=== PATIENT | female | born 1985 | race Caucasian/White ===

== ENCOUNTER 2019-05-13 20:30 | Inpatient (IN) | payer MEDICARE, MEDICAID, SELFPAY ==
[2019-05-13 20:36] VITALS: BP 117/84; PULSE 148; RESP 16; TEMP 36.6; O2SAT 94
--- NOTE | 2019-05-13 20:37 | ED_ITS ---
Entered by Debra Rivera, acting as scribe for Documented by User: Selene Valentine 05/14/19 11:18 HPI - General Adult General: Chief complaint: General Medical Stated complaint: Lethargic Time Seen by Provider: 05/13/19 20:37 Source: family and RN notes reviewed Mode of arrival: wheelchair Limitations: physical limitation (cerebral palsy) History of Present Illness: HPI narrative: 33 yo female presents to ED with her family nurse. 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 The patient has a productive cough, is not eating and has had decreasing fluid intake. The family nurse states the patient has been sick for 1 week. complaint: cough, lethargy Onset (ago): week(s) (1) Location: head and chest Radiation: non-radiation Severity: severe Quality: aching and constant Pain Consistency: constant Relieving factors: none Exacerbating factors: none Associated symptoms: Reports cough, decreased appetite and malaise Treatments prior to arrival: none Review of Systems General: Reports: other (Review of systems are unobtainable secondary to patient's medical condition/cerebral palsy. All information is taken from caretakers.) Const: Reports: malaise [facility] ED PFSH: Medical History (Updated 05/14/19 @ 11:18 by Selene Valentine) Cerebral palsy DVT (deep venous thrombosis) Quadriplegia Spastic quadriplegia Social History (Updated 05/14/19 @ 00:28 by Concepción Bowman MD) Smoking and tobacco status: never smoked Alcohol intake: never Substance/Drug Use: never Lives independently: No Household members: family and caregiver Housing: House Physical Exam Const: COMMON NORMALS: no apparent distress, healthy appearing and well nourished GENERAL APPEARANCE: cooperative, well kempt and well developed ORIENTATION/CONSCIOUSNESS: Yes awake HENMT: COMMON NORMALS: normocephalic, head/scalp atraumatic, hearing grossly normal bilaterally, external ears normal, EAC's normal, external nose normal and moist oral mucous membranes HEAD & SCALP: normal to inspection, normocephalic and atraumatic FACE & SINUS: normal facial exam and face symmetric NOSE: external nose normal and nares normal EXTERNAL EAR: Yes external ears normal EXTERNAL AUDITORY CANAL: EAC's normal MOUTH: oral and palatal mucosa normal and tongue normal Eye: COMMON NORMALS: PERRL, EOMs intact bilaterally, conjunctivae normal and no scleral icterus GENERAL EYE: normal appearance of both eyes and normal light reflex CONJUNCTIVA: Yes conjunctivae normal SCLERA: sclerae normal CORNEA: Yes corneas normal PUPIL: Yes PERRL DIRECT OPHTHALMOSCOPY: Yes normal light reflex Neck/C-Spine: COMMON NORMALS: full ROM, no lymphadenopathy, supple, no meningeal signs and no JVD GENERAL: Yes normal visual inspection and Yes trachea midline CERVICAL SPINE: Yes cervical ROM normal Chest: COMMONS NORMALS: inspection of chest normal and palpation of chest normal Resp: COMMON NORMALS: normal respiratory effort, no retractions, no use of accessory muscles and clear to auscultation bilaterally EFFORT & INSPECTION: Yes able to speak in complete sentences AUSCULTATION: clear to auscultation bilaterally Cardio: COMMON NORMALS: no JVD, regular rhythm, S1 normal heart sound, S2 normal heart sound, no gallops, no clicks, no murmurs and no rub JUGULAR VENOUS DISTENTION: no JVD RATE: tachycardic RHYTHM: regular rhythm HEART SOUNDS: S1 normal and S2 normal GI: COMMON NORMALS: soft to palpation, non-tender, no hepatosplenomegaly and no masses INSPECTION: Yes normal to inspection PALPATION: Yes soft, Yes tender, No guarding, No rigid and Yes no hepatosplenomegaly : COMMON NORMALS: Yes no CVA tenderness BLADDER/KIDNEY EXAM: Yes no CVA tenderness Back/Pelvis: COMMON NORMALS: no CVA tenderness, thoracic and lumbar spine normal to inspection, no thoracic nor lumbar tenderness and thoraco-lumbar ROM normal Extremity: COMMON NORMALS: normal to inspection, normal capillary refill, no joint enlargement, no clubbing, cyanosis or edema and no calf tenderness Neuro: COMMON NORMALS: CN's II-XII intact bilaterally, no focal motor deficits and no sensory deficits noted MENINGEAL SIGNS: Yes no meningeal signs Psych: COMMON NORMALS: mental status grossly normal, thought process normal, cooperative, affect normal, speech normal and activity/motor behavior normal APPEARANCE: Yes well kempt SPEECH: Yes normal speech THOUGHT PROCESS: normal thought process Skin: COMMON NORMALS: no rashes or lesions noted, skin turgor normal, no jaundice, no petechiae and no mottling GENERAL SKIN EXAM: no rashes or lesions noted and turgor normal Course Vital Signs: Vital signs: Vital Signs Temperature 99.2 F 03/08/20 10:43 Pulse Rate 129 H 05/14/19 10:43 Respiratory Rate 18 05/14/19 10:43 Blood Pressure 97/64 05/14/19 10:43 Pulse Oximetry 92 05/14/19 10:43 MDM - General Adult MDM Narrative: Medical decision making narrative: Deborah is a 33-year-old female who comes in with sepsis/flulike symptoms. Her work-up to this point has been unremarkable. The case is been endorsed to Dr. Bowman, he agrees to admit. He will follow-up on the patient CT abdomen pelvis. Lab Data: Attestation: I reviewed the patient's lab results. Labs: Lab Results 05/13/19 05/13/19 05/13/19 Range/Units 20:57 20:57 20:57 WBC 14.5 H (4.0-10.0) 10^3/ uL RBC 5.02 (4.1-5.3) 10^6/u L Hgb 12.9 (11.5-15.3) g/dL Hct 43.0 (37.0-47.0) % MCV 85.7 (81-99) fL MCH 25.7 L (28.0-34.0) pg MCHC 30.0 (30.0-36.0) g/dL RDW 14.8 (12.1-15.1) % Plt Count 287 (130-400) 10^3/c mm MPV 11.8 H (7.4-10.4) fL Neut % (Auto) 82.6 % Lymph % (Auto) 10.4 % [place] % (Auto) 6.4 % Eos % (Auto) 0.0 % Baso % (Auto) 0.2 % Neut # (Auto) 11.9 H (1.8-7.7) 10^3/u L Lymph # (Auto) 1.5 (0.8-4.8) 10^3/u L [place] # (Auto) 0.9 (0.2-0.9) 10^3/u L Eos # (Auto) 0.0 (0.0-0.8) 10^3/u L Baso # (Auto) 0.0 (0.0-0.1) 10^3/u L Nucleated RBC % (a uto) 0 % Nucleated RBCs # 0.0 /100WBC Sodium 149 H (136-145) mmol/L Potassium 2.8 L* (3.5-5.1) mmol/L Chloride 104 (98-107) mmol/L Carbon Dioxide 30 H (22-29) mmol/L Anion Gap 17.8 (5-19) BUN 22 H (6-20) mg/dL Creatinine 0.8 (0.5-0.9) mg/dL GFR Calculation 82.1 L (90-130) mL/min Glucose 251 H (65-115) mg/dL Lactic Acid 3.0 H (0.5-2.2) mmol/L Lactic Acid (Sepsi s) (0.5-2.2) mmol/L Calcium 9.8 (8.5-10.5) mg/dL Magnesium (1.7-2.3) mg/dL Total Bilirubin 0.5 (0.15-1.2) mg/dL AST 34 H (0-32) U/L ALT 37 H (0-33) U/L Alkaline Phosphata se 117 H (35-105) IU/L Troponin T Baselin e (0-10) ng/mL Troponin T 120 Min andreafski (0-10) ng/mL Delta Troponin T (0-10) ABS# Total Protein 8.5 (6.6-8.7) g/dL Albumin 4.1 (3.5-5.2) g/dL Globulin 4.4 (1.3-4.6) g/dL Lipase 15 (13-60) U/L Urine Color (Yellow) Urine Appearance (CLEAR) Urine pH (5-7) Ur Specific Gravit y (1.005-1.030) Urine Protein (Negative) Urine Glucose (UA) (Normal) Urine Ketones (Negative) Urine Blood (Negative) Urine Nitrate (Negative) Urine Bilirubin (NEGATIVE) Urine Urobilinogen (Negative) mg/dL Ur Leukocyte Angélica ase (Negative) Urine RBC (0-2) /hpf Urine WBC (0-5) /hpf Ur Squamous Epith Cells (0-5) Urine Bacteria (NONE) Urine Mucus Serum Ketones (Negative) Influenza Type A A g (Negative) POC Influenza B Ag (Negative) 05/13/19 05/13/19 05/13/19 Range/Units 20:57 20:57 20:57 WBC (4.0-10.0) 10^3/ uL RBC (4.1-5.3) 10^6/u L Hgb (11.5-15.3) g/dL Hct (37.0-47.0) % MCV (81-99) fL MCH (28.0-34.0) pg MCHC (30.0-36.0) g/dL RDW (12.1-15.1) % Plt Count (130-400) 10^3/c mm MPV (7.4-10.4) fL Neut % (Auto) % Lymph % (Auto) % [place] % (Auto) % Eos % (Auto) % Baso % (Auto) % Neut # (Auto) (1.8-7.7) 10^3/u L Lymph # (Auto) (0.8-4.8) 10^3/u L [place] # (Auto) (0.2-0.9) 10^3/u L Eos # (Auto) (0.0-0.8) 10^3/u L Baso # (Auto) (0.0-0.1) 10^3/u L Nucleated RBC % (a uto) % Nucleated RBCs # /100WBC Sodium (136-145) mmol/L Potassium (3.5-5.1) mmol/L Chloride (98-107) mmol/L Carbon Dioxide (22-29) mmol/L Anion Gap (5-19) BUN (6-20) mg/dL Creatinine (0.5-0.9) mg/dL GFR Calculation (90-130) mL/min Glucose (65-115) mg/dL Lactic Acid (0.5-2.2) mmol/L Lactic Acid (Sepsi s) (0.5-2.2) mmol/L Calcium (8.5-10.5) mg/dL Magnesium 2.8 H (1.7-2.3) mg/dL Total Bilirubin (0.15-1.2) mg/dL AST (0-32) U/L ALT (0-33) U/L Alkaline Phosphata se (35-105) IU/L Troponin T Baselin e 29 H (0-10) ng/mL Troponin T 120 Min andreafski (0-10) ng/mL Delta Troponin T (0-10) ABS# Total Protein (6.6-8.7) g/dL Albumin (3.5-5.2) g/dL Globulin (1.3-4.6) g/dL Lipase (13-60) U/L Urine Color (Yellow) Urine Appearance (CLEAR) Urine pH (5-7) Ur Specific Gravit y (1.005-1.030) Urine Protein (Negative) Urine Glucose (UA) (Normal) Urine Ketones (Negative) Urine Blood (Negative) Urine Nitrate (Negative) Urine Bilirubin (NEGATIVE) Urine Urobilinogen (Negative) mg/dL Ur Leukocyte Angélica ase (Negative) Urine RBC (0-2) /hpf Urine WBC (0-5) /hpf Ur Squamous Epith Cells (0-5) Urine Bacteria (NONE) Urine Mucus Serum Ketones Negative (Negative) Influenza Type A A g (Negative) POC Influenza B Ag (Negative) 05/13/19 05/13/19 05/13/19 Range/Units 21:10 21:10 22:45 WBC (4.0-10.0) 10^3/ uL RBC (4.1-5.3) 10^6/u L Hgb (11.5-15.3) g/dL Hct (37.0-47.0) % MCV (81-99) fL MCH (28.0-34.0) pg MCHC (30.0-36.0) g/dL RDW (12.1-15.1) % Plt Count (130-400) 10^3/c mm MPV (7.4-10.4) fL Neut % (Auto) % Lymph % (Auto) % [place] % (Auto) % Eos % (Auto) % Baso % (Auto) % Neut # (Auto) (1.8-7.7) 10^3/u L Lymph # (Auto) (0.8-4.8) 10^3/u L [place] # (Auto) (0.2-0.9) 10^3/u L Eos # (Auto) (0.0-0.8) 10^3/u L Baso # (Auto) (0.0-0.1) 10^3/u L Nucleated RBC % (a uto) % Nucleated RBCs # /100WBC Sodium (136-145) mmol/L Potassium (3.5-5.1) mmol/L Chloride (98-107) mmol/L Carbon Dioxide (22-29) mmol/L Anion Gap (5-19) BUN (6-20) mg/dL Creatinine (0.5-0.9) mg/dL GFR Calculation (90-130) mL/min Glucose (65-115) mg/dL Lactic Acid (0.5-2.2) mmol/L Lactic Acid (Sepsi s) (0.5-2.2) mmol/L Calcium (8.5-10.5) mg/dL Magnesium (1.7-2.3) mg/dL Total Bilirubin (0.15-1.2) mg/dL AST (0-32) U/L ALT (0-33) U/L Alkaline Phosphata se (35-105) IU/L Troponin T Baselin e (0-10) ng/mL Troponin T 120 Min andreafski 17.17 H (0-10) ng/mL Delta Troponin T -11.83 L (0-10) ABS# Total Protein (6.6-8.7) g/dL Albumin (3.5-5.2) g/dL Globulin (1.3-4.6) g/dL Lipase (13-60) U/L Urine Color Yellow (Yellow) Urine Appearance Cloudy (CLEAR) Urine pH 5 (5-7) Ur Specific Gravit y 1.020 (1.005-1.030) Urine Protein 2+ H (Negative) Urine Glucose (UA) Norm (Normal) Urine Ketones 1+ H (Negative) Urine Blood 3+ H (Negative) Urine Nitrate Negative (Negative) Urine Bilirubin 2+ H (NEGATIVE) Urine Urobilinogen Norm (Negative) mg/dL Ur Leukocyte Angélica ase Negative (Negative) Urine RBC 0-4 H (0-2) /hpf Urine WBC 0-4 H (0-5) /hpf Ur Squamous Epith Cells 0-4 H (0-5) Urine Bacteria 1+ H (NONE) Urine Mucus 2+ Serum Ketones (Negative) Influenza Type A A g Negative (Negative) POC Influenza B Ag Negative (Negative) 05/13/19 Range/Units 22:45 WBC (4.0-10.0) 10^3/ uL RBC (4.1-5.3) 10^6/u L Hgb (11.5-15.3) g/dL Hct (37.0-47.0) % MCV (81-99) fL MCH (28.0-34.0) pg MCHC (30.0-36.0) g/dL RDW (12.1-15.1) % Plt Count (130-400) 10^3/c mm MPV (7.4-10.4) fL Neut % (Auto) % Lymph % (Auto) % [place] % (Auto) % Eos % (Auto) % Baso % (Auto) % Neut # (Auto) (1.8-7.7) 10^3/u L Lymph # (Auto) (0.8-4.8) 10^3/u L [place] # (Auto) (0.2-0.9) 10^3/u L Eos # (Auto) (0.0-0.8) 10^3/u L Baso # (Auto) (0.0-0.1) 10^3/u L Nucleated RBC % (a uto) % Nucleated RBCs # /100WBC Sodium (136-145) mmol/L Potassium (3.5-5.1) mmol/L Chloride (98-107) mmol/L Carbon Dioxide (22-29) mmol/L Anion Gap (5-19) BUN (6-20) mg/dL Creatinine (0.5-0.9) mg/dL GFR Calculation (90-130) mL/min Glucose (65-115) mg/dL Lactic Acid (0.5-2.2) mmol/L Lactic Acid (Sepsi s) 2.4 H (0.5-2.2) mmol/L Calcium (8.5-10.5) mg/dL Magnesium (1.7-2.3) mg/dL Total Bilirubin (0.15-1.2) mg/dL AST (0-32) U/L ALT (0-33) U/L Alkaline Phosphata se (35-105) IU/L Troponin T Baselin e (0-10) ng/mL Troponin T 120 Min andreafski (0-10) ng/mL Delta Troponin T (0-10) ABS# Total Protein (6.6-8.7) g/dL Albumin (3.5-5.2) g/dL Globulin (1.3-4.6) g/dL Lipase (13-60) U/L Urine Color (Yellow) Urine Appearance (CLEAR) Urine pH (5-7) Ur Specific Gravit y (1.005-1.030) Urine Protein (Negative) Urine Glucose (UA) (Normal) Urine Ketones (Negative) Urine Blood (Negative) Urine Nitrate (Negative) Urine Bilirubin (NEGATIVE) Urine Urobilinogen (Negative) mg/dL Ur Leukocyte Angélica ase (Negative) Urine RBC (0-2) /hpf Urine WBC (0-5) /hpf Ur Squamous Epith Cells (0-5) Urine Bacteria (NONE) Urine Mucus Serum Ketones (Negative) Influenza Type A A g (Negative) POC Influenza B Ag (Negative) Imaging Data^: CXR: My impression: No acute cardiopulmonary findings. EKG Data^: EKG 1: Computer generated interpretation: Chest X-Ray 05/13/19 20:42 IMPRESSION: Negative chest for active pathology. Abdomen/Pelvis CT 05/13/19 22:48 IMPRESSION: 1. Multiple small gas-filled gallstones without evidence of cholecystitis 2. Irregular hypoattenuation mass in the right hepatic lobe exhibiting nodular peripheral enhancement compatible with a benign hemangioma measuring 2 cm. No further workup needed. 3. Numerous punctate densities seen in the left lower lobe posteriorly likely represents inspissated bronchi. Radiation Dose CTDIVOL = (mGy): DLP = 517.42 (mGy-cm) EKG 2: Computer generated interpretation: Chest X-Ray 05/13/19 20:42 IMPRESSION: Negative chest for active pathology. Abdomen/Pelvis CT 05/13/19 22:48 IMPRESSION: 1. Multiple small gas-filled gallstones without evidence of cholecystitis 2. Irregular hypoattenuation mass in the right hepatic lobe exhibiting nodular peripheral enhancement compatible with a benign hemangioma measuring 2 cm. No further workup needed. 3. Numerous punctate densities seen in the left lower lobe posteriorly likely represents inspissated bronchi. Radiation Dose CTDIVOL = (mGy): DLP = 517.42 (mGy-cm) Discharge Plan Discharge Patient Disposition: Admitted As Inpatient Admit Provider: Concepción Bowman Clinical Impression: Sepsis, Dehydration Condition: Stable Interventions: ED Discharge Assessment Last Done: 05/14/19 00:09 Discharge Date/Time: 05/14/19 00:10 Coding Level of Care Code ED Top Collar Maker for Chg Fwd Exam Comprehensive Documented by User: Sergio Johnson DO 05/14/19 00:12 HPI - General Adult General: Chief complaint: General Medical Stated complaint: Lethargic Time Seen by Provider: 05/13/19 20:37 PFSH ED PFSH: Medical History (Updated 05/14/19 @ 11:18 by Selene Valentine) Cerebral palsy DVT (deep venous thrombosis) Quadriplegia Spastic quadriplegia Social History (Updated 05/14/19 @ 00:28 by Concepción Bowman MD) Smoking and tobacco status: never smoked Alcohol intake: never Substance/Drug Use: never Lives independently: No Household members: family and caregiver Housing: House Course Vital Signs: Vital signs: Vital Signs Temperature 99.2 F 05/14/19 10:43 Pulse Rate 129 H 05/14/19 10:43 Respiratory Rate 18 05/14/19 10:43 Blood Pressure 97/64 05/14/19 10:43 Pulse Oximetry 92 05/14/19 10:43 MDM - General Adult Lab Data: Labs: Lab Results 05/13/19 05/13/19 05/13/19 Range/Units 20:57 20:57 20:57 WBC 14.5 H (4.0-10.0) 10^3/ uL RBC 5.02 (4.1-5.3) 10^6/u L Hgb 12.9 (11.5-15.3) g/dL Hct 43.0 (37.0-47.0) % MCV 85.7 (81-99) fL MCH 25.7 L (28.0-34.0) pg MCHC 30.0 (30.0-36.0) g/dL RDW 14.8 (12.1-15.1) % Plt Count 287 (130-400) 10^3/c mm MPV 11.8 H (7.4-10.4) fL Neut % (Auto) 82.6 % Lymph % (Auto) 10.4 % [place] % (Auto) 6.4 % Eos % (Auto) 0.0 % Baso % (Auto) 0.2 % Neut # (Auto) 11.9 H (1.8-7.7) 10^3/u L Lymph # (Auto) 1.5 (0.8-4.8) 10^3/u L [place] # (Auto) 0.9 (0.2-0.9) 10^3/u L Eos # (Auto) 0.0 (0.0-0.8) 10^3/u L Baso # (Auto) 0.0 (0.0-0.1) 10^3/u L Nucleated RBC % (a uto) 0 % Nucleated RBCs # 0.0 /100WBC Sodium 149 H (136-145) mmol/L Potassium 2.8 L* (3.5-5.1) mmol/L Chloride 104 (98-107) mmol/L Carbon Dioxide 30 H (22-29) mmol/L Anion Gap 17.8 (5-19) BUN 22 H (6-20) mg/dL Creatinine 0.8 (0.5-0.9) mg/dL GFR Calculation 82.1 L (90-130) mL/min Glucose 251 H (65-115) mg/dL Lactic Acid 3.0 H (0.5-2.2) mmol/L Lactic Acid (Sepsi s) (0.5-2.2) mmol/L Calcium 9.8 (8.5-10.5) mg/dL Magnesium (1.7-2.3) mg/dL Total Bilirubin 0.5 (0.15-1.2) mg/dL AST 34 H (0-32) U/L ALT 37 H (0-33) U/L Alkaline Phosphata se 117 H (35-105) IU/L Troponin T Baselin e (0-10) ng/mL Troponin T 120 Min andreafski (0-10) ng/mL Delta Troponin T (0-10) ABS# Total Protein 8.5 (6.6-8.7) g/dL Albumin 4.1 (3.5-5.2) g/dL Globulin 4.4 (1.3-4.6) g/dL Lipase 15 (13-60) U/L Urine Color (Yellow) Urine Appearance (CLEAR) Urine pH (5-7) Ur Specific Gravit y (1.005-1.030) Urine Protein (Negative) Urine Glucose (UA) (Normal) Urine Ketones (Negative) Urine Blood (Negative) Urine Nitrate (Negative) Urine Bilirubin (NEGATIVE) Urine Urobilinogen (Negative) mg/dL Ur Leukocyte Angélica ase (Negative) Urine RBC (0-2) /hpf Urine WBC (0-5) /hpf Ur Squamous Epith Cells (0-5) Urine Bacteria (NONE) Urine Mucus Serum Ketones (Negative) Influenza Type A A g (Negative) POC Influenza B Ag (Negative) 05/13/19 05/13/19 05/13/19 Range/Units 20:57 20:57 20:57 WBC (4.0-10.0) 10^3/ uL RBC (4.1-5.3) 10^6/u L Hgb (11.5-15.3) g/dL Hct (37.0-47.0) % MCV (81-99) fL MCH (28.0-34.0) pg MCHC (30.0-36.0) g/dL RDW (12.1-15.1) % Plt Count (130-400) 10^3/c mm MPV (7.4-10.4) fL Neut % (Auto) % Lymph % (Auto) % [place] % (Auto) % Eos % (Auto) % Baso % (Auto) % Neut # (Auto) (1.8-7.7) 10^3/u L Lymph # (Auto) (0.8-4.8) 10^3/u L [place] # (Auto) (0.2-0.9) 10^3/u L Eos # (Auto) (0.0-0.8) 10^3/u L Baso # (Auto) (0.0-0.1) 10^3/u L Nucleated RBC % (a uto) % Nucleated RBCs # /100WBC Sodium (136-145) mmol/L Potassium (3.5-5.1) mmol/L Chloride (98-107) mmol/L Carbon Dioxide (22-29) mmol/L Anion Gap (5-19) BUN (6-20) mg/dL Creatinine (0.5-0.9) mg/dL GFR Calculation (90-130) mL/min Glucose (65-115) mg/dL Lactic Acid (0.5-2.2) mmol/L Lactic Acid (Sepsi s) (0.5-2.2) mmol/L Calcium (8.5-10.5) mg/dL Magnesium 2.8 H (1.7-2.3) mg/dL Total Bilirubin (0.15-1.2) mg/dL AST (0-32) U/L ALT (0-33) U/L Alkaline Phosphata se (35-105) IU/L Troponin T Baselin e 29 H (0-10) ng/mL Troponin T 120 Min andreafski (0-10) ng/mL Delta Troponin T (0-10) ABS# Total Protein (6.6-8.7) g/dL Albumin (3.5-5.2) g/dL Globulin (1.3-4.6) g/dL Lipase (13-60) U/L Urine Color (Yellow) Urine Appearance (CLEAR) Urine pH (5-7) Ur Specific Gravit y (1.005-1.030) Urine Protein (Negative) Urine Glucose (UA) (Normal) Urine Ketones (Negative) Urine Blood (Negative) Urine Nitrate (Negative) Urine Bilirubin (NEGATIVE) Urine Urobilinogen (Negative) mg/dL Ur Leukocyte Angélica ase (Negative) Urine RBC (0-2) /hpf Urine WBC (0-5) /hpf Ur Squamous Epith Cells (0-5) Urine Bacteria (NONE) Urine Mucus Serum Ketones Negative (Negative) Influenza Type A A g (Negative) POC Influenza B Ag (Negative) 05/13/19 05/13/19 05/13/19 Range/Units 21:10 21:10 22:45 WBC (4.0-10.0) 10^3/ uL RBC (4.1-5.3) 10^6/u L Hgb (11.5-15.3) g/dL Hct (37.0-47.0) % MCV (81-99) fL MCH (28.0-34.0) pg MCHC (30.0-36.0) g/dL RDW (12.1-15.1) % Plt Count (130-400) 10^3/c mm MPV (7.4-10.4) fL Neut % (Auto) % Lymph % (Auto) % [place] % (Auto) % Eos % (Auto) % Baso % (Auto) % Neut # (Auto) (1.8-7.7) 10^3/u L Lymph # (Auto) (0.8-4.8) 10^3/u L [place] # (Auto) (0.2-0.9) 10^3/u L Eos # (Auto) (0.0-0.8) 10^3/u L Baso # (Auto) (0.0-0.1) 10^3/u L Nucleated RBC % (a uto) % Nucleated RBCs # /100WBC Sodium (136-145) mmol/L Potassium (3.5-5.1) mmol/L Chloride (98-107) mmol/L Carbon Dioxide (22-29) mmol/L Anion Gap (5-19) BUN (6-20) mg/dL Creatinine (0.5-0.9) mg/dL GFR Calculation (90-130) mL/min Glucose (65-115) mg/dL Lactic Acid (0.5-2.2) mmol/L Lactic Acid (Sepsi s) (0.5-2.2) mmol/L Calcium (8.5-10.5) mg/dL Magnesium (1.7-2.3) mg/dL Total Bilirubin (0.15-1.2) mg/dL AST (0-32) U/L ALT (0-33) U/L Alkaline Phosphata se (35-105) IU/L Troponin T Baselin e (0-10) ng/mL Troponin T 120 Min andreafski 17.17 H (0-10) ng/mL Delta Troponin T -11.83 L (0-10) ABS# Total Protein (6.6-8.7) g/dL Albumin (3.5-5.2) g/dL Globulin (1.3-4.6) g/dL Lipase (13-60) U/L Urine Color Yellow (Yellow) Urine Appearance Cloudy (CLEAR) Urine pH 5 (5-7) Ur Specific Gravit y 1.020 (1.005-1.030) Urine Protein 2+ H (Negative) Urine Glucose (UA) Norm (Normal) Urine Ketones 1+ H (Negative) Urine Blood 3+ H (Negative) Urine Nitrate Negative (Negative) Urine Bilirubin 2+ H (NEGATIVE) Urine Urobilinogen Norm (Negative) mg/dL Ur Leukocyte Angélica ase Negative (Negative) Urine RBC 0-4 H (0-2) /hpf Urine WBC 0-4 H (0-5) /hpf Ur Squamous Epith Cells 0-4 H (0-5) Urine Bacteria 1+ H (NONE) Urine Mucus 2+ Serum Ketones (Negative) Influenza Type A A g Negative (Negative) POC Influenza B Ag Negative (Negative) 05/13/19 Range/Units 22:45 WBC (4.0-10.0) 10^3/ uL RBC (4.1-5.3) 10^6/u L Hgb (11.5-15.3) g/dL Hct (37.0-47.0) % MCV (81-99) fL MCH (28.0-34.0) pg MCHC (30.0-36.0) g/dL RDW (12.1-15.1) % Plt Count (130-400) 10^3/c mm MPV (7.4-10.4) fL Neut % (Auto) % Lymph % (Auto) % [place] % (Auto) % Eos % (Auto) % Baso % (Auto) % Neut # (Auto) (1.8-7.7) 10^3/u L Lymph # (Auto) (0.8-4.8) 10^3/u L [place] # (Auto) (0.2-0.9) 10^3/u L Eos # (Auto) (0.0-0.8) 10^3/u L Baso # (Auto) (0.0-0.1) 10^3/u L Nucleated RBC % (a uto) % Nucleated RBCs # /100WBC Sodium (136-145) mmol/L Potassium (3.5-5.1) mmol/L Chloride (98-107) mmol/L Carbon Dioxide (22-29) mmol/L Anion Gap (5-19) BUN (6-20) mg/dL Creatinine (0.5-0.9) mg/dL GFR Calculation (90-130) mL/min Glucose (65-115) mg/dL Lactic Acid (0.5-2.2) mmol/L Lactic Acid (Sepsi s) 2.4 H (0.5-2.2) mmol/L Calcium (8.5-10.5) mg/dL Magnesium (1.7-2.3) mg/dL Total Bilirubin (0.15-1.2) mg/dL AST (0-32) U/L ALT (0-33) U/L Alkaline Phosphata se (35-105) IU/L Troponin T Baselin e (0-10) ng/mL Troponin T 120 Min andreafski (0-10) ng/mL Delta Troponin T (0-10) ABS# Total Protein (6.6-8.7) g/dL Albumin (3.5-5.2) g/dL Globulin (1.3-4.6) g/dL Lipase (13-60) U/L Urine Color (Yellow) Urine Appearance (CLEAR) Urine pH (5-7) Ur Specific Gravit y (1.005-1.030) Urine Protein (Negative) Urine Glucose (UA) (Normal) Urine Ketones (Negative) Urine Blood (Negative) Urine Nitrate (Negative) Urine Bilirubin (NEGATIVE) Urine Urobilinogen (Negative) mg/dL Ur Leukocyte Angélica ase (Negative) Urine RBC (0-2) /hpf Urine WBC (0-5) /hpf Ur Squamous Epith Cells (0-5) Urine Bacteria (NONE) Urine Mucus Serum Ketones (Negative) Influenza Type A A g (Negative) POC Influenza B Ag (Negative) EKG Data^: EKG 1: Computer generated interpretation: Chest X-Ray 05/13/19 20:42 IMPRESSION: Negative chest for active pathology. Abdomen/Pelvis CT 05/13/19 22:48 IMPRESSION: 1. Multiple small gas-filled gallstones without evidence of cholecystitis 2. Irregular hypoattenuation mass in the right hepatic lobe exhibiting nodular peripheral enhancement compatible with a benign hemangioma measuring 2 cm. No further workup needed. 3. Numerous punctate densities seen in the left lower lobe posteriorly likely represents inspissated bronchi. Radiation Dose CTDIVOL = (mGy): DLP = 517.42 (mGy-cm) EKG 2: Computer generated interpretation: Chest X-Ray 05/13/19 20:42 IMPRESSION: Negative chest for active pathology. Abdomen/Pelvis CT 05/13/19 22:48 IMPRESSION: 1. Multiple small gas-filled gallstones without evidence of cholecystitis 2. Irregular hypoattenuation mass in the right hepatic lobe exhibiting nodular peripheral enhancement compatible with a benign hemangioma measuring 2 cm. No further workup needed. 3. Numerous punctate densities seen in the left lower lobe posteriorly likely represents inspissated bronchi. Radiation Dose CTDIVOL = (mGy): DLP = 517.42 (mGy-cm) Discharge Plan Discharge Patient Disposition: Admitted As Inpatient Admit Provider: Concepción Bowman Clinical Impression: Sepsis, Dehydration Condition: Stable Interventions: ED Discharge Assessment Last Done: 05/14/19 00:09 Discharge Date/Time: 05/14/19 00:10 Coding Level of Care Code ED Top Collar Maker for Chg Fwd Exam Comprehensive The documentation recorded by the Miguel zheng Valerie R, accurately reflects the service I personally performed and the decisions made by Meme terry Eli N May 13, 2019 20:30
--- NOTE | 2019-05-13 20:42 | XR_ITS ---
WS: [id number] XR chest 1V portable [id number] REASON FOR EXAM: cough FINDINGS: The lung torre are mildly hypoaerated. The heart and mediastinum interfaces normal. The lung torre show no pneumonia, pleural effusion, pulmonary edema, or mass effect. There are scattered granulomas seen. A scoliotic curve convex to the left is seen. The hilum and apices normal. XR/XR chest 1V portable [id number] IMPRESSION: Negative chest for active pathology.
--- NOTE | 2019-05-13 20:43 | ECG_ITS ---
Measurements Intervals [place] Rate: 133 P: 72 VA: 125 QRS: 53 QRSD: 75 T: 24 QT: 367 QTc: [address] & T-WAVE ABNORMALITY ABNORMAL RHYTHM ECG No previous ECG available for comparison Electronically Signed On 05-14-2019 19:46:37 CDT by Concepción Menon M.D. [id number]
[2019-05-13 21:04] LABS: Basophils % 0.2 %; Hemoglobin 12.9 g/dL (11.5-15.3); Lymphocytes # 1.5 10^3/uL (0.8-4.8); Lymphocytes % 10.4 %; Mean Corpuscular Hemoglobin 25.7 pg (28.0-34.0); Mean Corpuscular Volume 85.7 fL (81-99); Mean Platelet Volume 11.8 fL (7.4-10.4); Monocytes # 0.9 10^3/uL (0.2-0.9); Monocytes % 6.4 %; Neutrophils # 11.9 10^3/uL (1.8-7.7); Neutrophils % 82.6 %; Nucleated Red Blood Cells % 0 %; Platelet Count 287 10^3/cmm (130-400); Red Blood Count 5.02 10^6/uL (4.1-5.3); Red Cell Distribution Width 14.8 % (12.1-15.1); White Blood Count 14.5 10^3/uL (4.0-10.0)
[2019-05-13 21:21] LABS: Alanine Aminotransferase 37 U/L (0-33); Albumin Level 4.1 g/dL (3.5-5.2); Alkaline Phosphatase 117 IU/L (35-105); Anion Gap 17.8 (5-19); Aspartate Amino Transferase 34 U/L (0-32); Blood Urea Nitrogen 22 mg/dL (6-20); Calcium 9.8 mg/dL (8.5-10.5); Carbon Dioxide 30 mmol/L (22-29); Chloride 104 mmol/L (98-107); Globulin 4.4 g/dL (1.3-4.6); Glomerular Filtration Rate 82.1 mL/min (90-130); Glucose 251 mg/dL (65-115); Lipase 15 U/L (13-60); Sodium 149 mmol/L (136-145); Total Bilirubin 0.5 mg/dL (0.15-1.2); Total Protein 8.5 g/dL (6.6-8.7)
[2019-05-13] MEDS: ondansetron 2 mg/ML SDV 2 mL 4 MG IVP (21:21)
[2019-05-13] MEDS: piperacillin-tazobactam 3.375 GM in sodium chloride 0.9% (plus) 50 ML IV (21:22)
[2019-05-13 21:23] LABS: Troponin(5th) Baseline 29 ng/mL (0-10)
[2019-05-13 21:28] LABS: Potassium 2.8 mmol/L (3.5-5.1)
[2019-05-13 21:38] LABS: Ketone (Acetest) Serum Negative (Negative)
[2019-05-13 21:43] LABS: Bacteria Urine 1+; Bilirubin Urine 2+ (NEGATIVE); Blood Urine 3+ (Negative); Glucose Urine UA Norm (Normal); Ketones Urine 1+ (Negative); Leukocyte Esterase Urine Negative (Negative); Mucus Urine 2+; Nitrate Urine Negative (Negative); Protein Urine 2+ (Negative); RBC Urine 0-4 /hpf (0-2); Squamous Epithelial Cell Urine 0-4 (0-5); Urine Appearance Cloudy (CLEAR); Urine Color Yellow (Yellow); Urobilinogen Urine Norm (Negative); WBC Urine 0-4 /hpf (0-5); pH Urine 5 (5-7)
[2019-05-13 21:54] LABS: Influenza A by IFA Negative (Negative); Influenza B by IFA Negative (Negative)
[2019-05-13 22:04] LABS: Magnesium 2.8 mg/dL (1.7-2.3)
[2019-05-13] MEDS: potassium chloride premix 40 MEQ/100 ML PREMIX 25 MEQ IV (22:08)
--- NOTE | 2019-05-13 22:43 | ECG_ITS ---
Measurements Intervals [place] Rate: 144 P: 65 MN: 162 QRS: 52 QRSD: 89 T: 34 QT: 335 QTc: 520 SINUS TACHYCARDIA, POSSIBLE ATRIAL FLUTTER ST DEVIATION AND MODERATE T-WAVE ABNORMALITY, CONSIDER ANTEROLATERAL ISCHEMIA [-0.1+ mV T WAVE IN V3-V6] No previous ECG available for comparison Electronically Signed On 05-14-2019 19:51:32 CDT by Concepción Menon M.D. [id number]
[2019-05-13 22:48] LABS: Reflex Lactate Order REFLEX LACTIC ORDERD
--- NOTE | 2019-05-13 22:48 | CTR_ITS ---
PROCEDURE INFORMATION: Exam: CT Abdomen And Pelvis With Contrast Exam date and time: 05/13/2019 11:29 PM Age: 33 years old Clinical indication: Abdominal pain; Generalized; Patient HX: HX of cp C/O abd pain weakness/lethargy TECHNIQUE: Imaging protocol: Computed tomography of the abdomen and pelvis with intravenous contrast. Total DLP: 517.42 mGy-cm Radiation optimization: All CT scans at this facility use at least one of these dose optimization techniques: automated exposure control; mA and/or kV adjustment per patient size (includes targeted exams where dose is matched to clinical indication); or iterative reconstruction. Contrast material: OMNI 300; Contrast volume: 75 ml; Contrast route: 20G; COMPARISON: No relevant prior studies available. FINDINGS: Lungs: There are numerous densities seen in the left lower lobe posteriorly likely representing inspissated bronchi. Some strandy opacities are seen in the right middle lobe compatible with atelectasis. Liver: There is an irregular hypoattenuation mass seen within the right hepatic lobe medially with some nodular peripheral enhancement compatible with a benign hemangioma. It measures 1.8 x 2.0 x 1.4 cm. Gallbladder and bile ducts: There are multiple small gas-filled gallstones present. Pancreas: Normal. No ductal dilation. Spleen: Normal. No splenomegaly. Adrenals: Normal. No mass. Kidneys and ureters: Normal. No hydronephrosis. Stomach and bowel: Moderate stool is present within the sigmoid colon and rectum. Appendix: No evidence of appendicitis. Intraperitoneal space: Unremarkable. No free air. No significant fluid collection. Vasculature: Unremarkable. No abdominal aortic aneurysm. Lymph nodes: Unremarkable. No enlarged lymph nodes. Bladder: Unremarkable as visualized. Reproductive: Unremarkable as visualized. Bones/joints: There is prominent rotoscoliosis of the axial skeleton to the right. Soft tissues: Unremarkable. CT/CT abdomen pelvis w con* [id number] IMPRESSION: 1. Multiple small gas-filled gallstones without evidence of cholecystitis 2. Irregular hypoattenuation mass in the right hepatic lobe exhibiting nodular peripheral enhancement compatible with a benign hemangioma measuring 2 cm. No further workup needed. 3. Numerous punctate densities seen in the left lower lobe posteriorly likely represents inspissated bronchi. Radiation Dose CTDIVOL = (mGy): DLP = 517.42 (mGy-cm)
[2019-05-13 23:28] LABS: Troponin 5 2HR 17.17 ng/mL (0-10)
[2019-05-13 23:30] LABS: Lactic Acid level (Lactate) 2.4 mmol/L (0.5-2.2)
[2019-05-13] MEDS: iohexol 300 mg/mL 100 mL Btl IV (23:31)
[2019-05-13 23:37] VITALS: BP 130/86; O2SAT 98
[2019-05-13 23:40] VITALS: BP 130/86; PULSE 125; RESP 22; O2SAT 98
[2019-05-13 23:45] VITALS: BP 130/86; PULSE 125; RESP 26; O2SAT 99
[2019-05-13 23:50] VITALS: BP 130/86; PULSE 125; RESP 23; O2SAT 98
[2019-05-13 23:55] VITALS: BP 130/86; PULSE 126; RESP 23; O2SAT 97
--- NOTE | 2019-05-13 23:55 | P.HP_ITS ---
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 Caregiver is at the bedside who is endorsing that for last couple of days she is not eating well, her urine output has decreased, her bowel movements are every third day, she has not noted any fever but they have been changing her clothes because she was drenched in sweats, no one is sick at home, no flulike symptoms, she has been coughing a lot and at the end of her coughing she tries to throw up, she eats regular food. There is no skin breakdown. She is wearing an adult diaper. Diagnostics in ER revealed dehydration, sinus tachycardia, high lactic acid, leukocytosis, no evident source of infection She was given 1 L normal saline and Zosyn Review of Systems General: Reports: ROS unobtainable due to medical condition Medications/Allergies Home Medications Medication Instructions Recorded Confirmed Last Taken Type alprazolam [Xanax] 0.5 mg PO BID 05/13/19 05/13/19 05/12/19 History apixaban [Eliquis] 5 mg PO BID 05/13/19 05/13/19 05/12/19 History citalopram 40 mg PO DAILY 05/13/19 05/13/19 05/12/19 History cyclobenzaprine 10 mg PO BID 05/13/19 05/13/19 05/12/19 History risperidone [Risperdal] 0.5 mg PO BID 05/13/19 05/13/19 05/12/19 History Allergies Allergy/AdvReac Type Severity Reaction Status Date / Time No Known Allergies Allergy Verified 05/13/19 20:40 PFSH Acute PFSH: Medical History (Updated 05/14/19 @ 00:47 by Concepción Bowman MD) Cerebral palsy DVT (deep venous thrombosis) Quadriplegia Spastic quadriplegia Social History (Updated 05/14/19 @ 00:28 by Concepción Bowman MD) Smoking and tobacco status: never smoked Alcohol intake: never Substance/Drug Use: never Lives independently: No Household members: family and caregiver Housing: House Vitals/I&O/Wt Last Vital Signs Temp 98.7 F 05/14/19 00:09 Pulse 128 H 05/14/19 00:09 Resp 23 H 05/14/19 00:09 BP 138/68 05/14/19 00:09 Pulse Ox 100 05/14/19 00:09 05/13/19 05/13/19 05/14/19 14:59 22:59 07:59 Intake Total 1400 / 1400 Balance 1400 / 1400 Physical Exam Narrative: EXAM NARRATIVE: This is a spastic quadriparesis patient She nods mostly in yes to most of the questions S1, S2 sinus tachycardia Patient seems to be dehydrated and malnourished Bilateral breath sounds with mild rhonchi at the bases Abdomen soft, nondistended, bowel sounds present Patient is wearing adult diapers Muscle mass loss of lower extremities: Lower leg atrophy bilaterally Neurological status, she is awake, nodding to most of my questions, follows commands Limited exam due to cerebral palsy intellectual disability, she is not able to articulate but seems like she is able to understand my questions Data : 05/13/19 20:57 05/13/19 20:57 Micro: Microbiology 05/13/19 21:08 Blood Culture - Preliminary Blood SPECIMEN COLLECTED 05/13/19 20:57 Blood Culture - Preliminary Blood SPECIMEN COLLECTED A&P Assessment and plan (1) Sepsis: Status: Acute Code(s): A41.9 - Sepsis, unspecified organism (2) Dehydration: Status: Acute Code(s): E86.0 - Dehydration Additional A&P Information Sepsis Criteria met with tachycardia, leukocytosis, high lactic acid Family is endorsing that she was drenched in sweat today and yesterday, she wears adult diapers She has been afebrile, No evident source but my suspicion is high for aspiration pneumonitis She has been treated with Zosyn, CT abdomen is unremarkable My differential would include UTI and aspiration pneumonitis, skin intact We will keep her on Zosyn for now Blood cultures to be followed Urine culture Dehydration and hypernatremia Free water deficit 1 L He has been given 1. 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
[2019-05-14] VITALS (17 sets, daily range): BP systolic 97–138; BP diastolic 64–86; PULSE 87–139; RESP 17–24; TEMP 36.5–37.8; O2SAT 92–100
--- NOTE | 2019-05-14 01:16 | PC.NURSE ---
Patient came to the floor via stretcher from ER. patient seems alert when talking to her and during assessment but though she can say yes and no has not spoken. lungs seemed pretty clear but closer to her bronchial tree sounded like some crackles especially when coughing which also sounds wet. Raised her up in bed. Family said patient not drinking much that she has sores on her inner lips and gums so it hurts to open her mouth but said it hadnt been looked at in the ER. patients legs are a bit warm, family said they arent usually that warm. patients heart sounds also like its racing the monitor has her at 123 where as the continuous pulse ox said 107. family said she does run fast.
[2019-05-14] MEDS: D5-NS 0.45% + KCL 20 mEq 20 MEQ/1,000 ML BAG 75 MEQ IV ×2 (03:25→21:16)
--- NOTE | 2019-05-14 03:43 | ECG_ITS ---
Measurements Intervals [place] Rate: 122 P: 63 CO: 104 QRS: 42 QRSD: 81 T: -13 QT: 332 QTc: 475 SINUS TACHYCARDIA WITH SHORT CO INTERVAL NONSPECIFIC T-WAVE ABNORMALITY ABNORMAL RHYTHM ECG No previous ECG available for comparison Electronically Signed On 05-14-2019 19:51:36 CDT by Concepción Menon M.D. [id number]
--- NOTE | 2019-05-14 03:56 | PC.NURSE ---
spoke to family oin room with patient (cousin?) who says she and the grandmother have joint guardianship of patient and stated that they agreed to make patient DNR as they didnt want the patient to have to go through prolonged pain and suffering should she code. Verify with the grandmother whos listed as next of kin? Spoke to Dr. Bowman about changing resuscitation request.
[2019-05-14] MEDS: piperacillin-tazobactam 3.375 GM in sodium chloride 0.9% (plus) 50 ML IV ×3 (05:33→21:17)
--- NOTE | 2019-05-14 05:40 | PC.NURSE ---
patient turned recently to her left side, patient still dry zosyn started. patient coughing more like clearing her throat but sounds very wet. contacting [facility] to see if they can suction her off and on maybe as patient can not cough family said and since has CP and just turned here afraid it may turn into pneumonia.
[2019-05-14 05:49] LABS: Basophils % 0.1 %; Hematocrit 33.6 % (37.0-47.0); Hemoglobin 9.9 g/dL (11.5-15.3); Lymphocytes # 1.9 10^3/uL (0.8-4.8); Lymphocytes % 13.7 %; Mean Corpuscular HGB Conc 29.5 g/dL (30.0-36.0); Mean Corpuscular Hemoglobin 25.9 pg (28.0-34.0); Mean Platelet Volume 12.1 fL (7.4-10.4); Monocytes # 1.1 10^3/uL (0.2-0.9); Monocytes % 7.6 %; Neutrophils % 78.1 %; Nucleated Red Blood Cells % 0 %; Platelet Count 180 10^3/cmm (130-400); Red Blood Count 3.82 10^6/uL (4.1-5.3); Red Cell Distribution Width 14.8 % (12.1-15.1)
[2019-05-14 06:19] LABS: Anion Gap 12.8 (5-19); Blood Urea Nitrogen 13 mg/dL (6-20); Calcium 8.1 mg/dL (8.5-10.5); Carbon Dioxide 27 mmol/L (22-29); Chloride 114 mmol/L (98-107); Glomerular Filtration Rate 141.2 mL/min (90-130); Glucose 186 mg/dL (65-115); Magnesium 2.5 mg/dL (1.7-2.3); Osmolality Calculated 313 mOsm/kg (285-295); Phosphorus 1.8 mg/dL (2.5-4.5); Sodium 151 mmol/L (136-145)
[2019-05-14 06:28] LABS: Potassium 2.8 mmol/L (3.5-5.1)
--- NOTE | 2019-05-14 06:45 | PC.NURSE ---
notified that patients potassium was critical at 2.[address] Bowman. He said to give her 40 meq iv krider once.
[2019-05-14] MEDS: potassium chloride premix 40 MEQ/100 ML PREMIX 25 MEQ IV (07:31)
[2019-05-14] MEDS: lidocaine 1% INJ 20 mL 5 ML IV (07:37)
[2019-05-14] MEDS: cyclobenzaprine 10 mg Tablet PO ×2 (09:07→18:16)
[2019-05-14] MEDS: apixaban 5 mg Tablet PO ×2 (09:07→18:16)
[2019-05-14] MEDS: ALPRAZolam 0.5 mg Tablet PO ×2 (09:07→18:16)
[2019-05-14] MEDS: risperiDONE 0.25 mg Tablet 0.5 MG PO ×2 (09:07→18:16)
--- NOTE | 2019-05-14 12:14 | PC.CHAP ---
Pastoral Care Encounter/Spiritual Assessment Type of Contact [] Declined proof technician helper visit [] Patient/Family/Request visit [] Outpatient visit [] Follow-up visit [] Physician referral [] Code/Alert [] Routine visit [] Staff referral [] Actively dying [x] Patient sleeping [] Family support [] [] Out of room [] Palliative care [] [] Receiving care in room [] Pre-surgical visit [] Trauma [] Long length of stay [] ICU visit [] Other: Relational/Emotional Strength [] Patient feels connected with others/family/visitors/staff [] Distress [] Loneliness/isolation [] Abandonment Spirituality of Patient [] Person of [place] [] Attends Taoism of their [place] [] Believes in Prayer [] Reads Bible or Protestant materials [] There are Spiritual issues to be addressed Primary Care Md Interventions [] Prayer [] Active listening [] Non-anxious presence [] Spiritual/emotional support [] Crisis/trauma care [] Spiritual counseling [] Bereavement support [] Provided bereavement packet [] Provided Bible/devotional materials [] Provided toy/stuffed animal, coloring book to patient or family member [] Provided Communion [] Anointing/[place] [] Salvation [] Completed spiritual assessment [] Other: Impact on Illness or Injury [] Angry [] Fearful [] Anxious [] Often cries [] Exhaustion [] Unable to work [] Unable to attend christian [] Unable to walk/stand [] Unable to read [] Unable to drive [] Unable to eat/drink [] Unable to sleep [] Unable to be with family [] Patient intubated [] Other: Summary Patient needs follow up with Primary Care Md. Time spent with patient
--- NOTE | 2019-05-14 15:23 | P.PN_ITS ---
Subjective Subjective: Interval history: Overnight labs, H&P reviewed. No new complaints this morning. Family remains at bedside, extremely supportive. Patient continues to attempt to cough however is unable to expectorate. Medications: Reviewed: Yes Vitals/I&O/Wt Last Vital Signs Temp 99.2 F 05/14/19 10:43 Pulse 135 H 05/14/19 15:18 Resp 17 05/14/19 15:10 BP 97/64 05/14/19 10:43 Pulse Ox 94 05/14/19 15:10 05/14/19 05/14/19 05/14/19 06:59 14:59 22:59 Intake Total 50 / 50 Balance 50 / 50 Weight last 48 hrs Weight 44.77 kg Physical Exam Narrative: EXAM NARRATIVE: GEN: Awake, appears calm, non verbal at baseline CVS: S1S2 N RS: Clear to auscultation B/L anteriorly Abd: Soft, nt/nd , bs+ GEOMATICS PROFESSOR: Flacid B/L LE, upper extremities B/L with spasticity, non verbal at baseline Data : 05/14/19 05:28 05/14/19 05:28 Micro: Microbiology 05/13/19 21:08 Blood Culture - Preliminary Blood SPECIMEN COLLECTED 05/13/19 20:57 Blood Culture - Preliminary Blood SPECIMEN COLLECTED A&P Assessment and plan (1) Sepsis: Status: Acute Qualifiers: Sepsis acute organ dysfunction status: unspecified Sepsis type: sepsis due to unspecified organism Qualified Code(s): A41.9 - Sepsis, unspecified organism Code(s): A41.9 - Sepsis, unspecified organism (2) Dehydration: Status: Acute Code(s): E86.0 - Dehydration (3) Hypokalemia: Status: Acute Code(s): E87.6 - Hypokalemia (4) Hypernatremia: Status: Acute Code(s): E87.0 - Hyperosmolality and hypernatremia Additional A&P Information Sepsis Criteria met with tachycardia, leukocytosis, high lactic acid From previous chart review, baseline WBC appears to be ~13K She has been afebrile, No gross consolidation on chest x-ray, CT abdomen unremarkable except for gallstones without evidence of cholecystitis. Based on history obtained from grandmother cannot rule out aspiration episodes. She has never had a swallow study in the past. Continue Zosyn for now. Blood cultures pending Dehydration and hypernatremia Free water deficit 1 L He has been given 1. Liters in the ER, will keep her on maintenance fluid D5 1/2 NS with potassium @75cc/hr Avoid rapid correction Hypokalemia: Repleted Change site to mechanical given risk of aspiration Spastic quadriplegia: Continue baclofen, ropinirole, For DVT she is on long-term Eliquis DNR/DNI- okay for pressors and ICU admission Attestations Medical Necessity Statement*: electrolyte abnormalities, sepsis Coding Level of Care Code Acute Supervisor Warping Department for [facility] Fwd Diagnoses Sepsis A41.9 Sepsis acute organ dysfunction status: unspecified Sepsis type: sepsis due to unspecified organism Dehydration E86.0 Hypokalemia E87.6 Hypernatremia E87.0
[2019-05-14 16:18] LABS: Alanine Aminotransferase 24 U/L (0-33); Albumin Level 2.9 g/dL (3.5-5.2); Alkaline Phosphatase 80 IU/L (35-105); Anion Gap 13.2 (5-19); Aspartate Amino Transferase 19 U/L (0-32); Blood Urea Nitrogen 9 mg/dL (6-20); Calcium 8.2 mg/dL (8.5-10.5); Carbon Dioxide 26 mmol/L (22-29); Chloride 114 mmol/L (98-107); Globulin 3.3 g/dL (1.3-4.6); Glomerular Filtration Rate 141.2 mL/min (90-130); Glucose 153 mg/dL (65-115); Osmolality Calculated 309 mOsm/kg (285-295); Potassium 3.2 mmol/L (3.5-5.1); Sodium 150 mmol/L (136-145); Total Bilirubin 0.4 mg/dL (0.15-1.2); Total Protein 6.2 g/dL (6.6-8.7)
[2019-05-14] MEDS: acetaminophen 325 mg Tablet 650 MG PO (21:18)
[2019-05-15] VITALS (9 sets, daily range): BP systolic 104–136; BP diastolic 65–85; PULSE 84–130; RESP 16–22; TEMP 36.6–37.5; O2SAT 94–100
[2019-05-15] MEDS: piperacillin-tazobactam 3.375 GM in sodium chloride 0.9% (plus) 50 ML IV ×3 (05:28→21:33)
[2019-05-15 06:31] LABS: Alanine Aminotransferase 21 U/L (0-33); Albumin Level 2.6 g/dL (3.5-5.2); Alkaline Phosphatase 86 IU/L (35-105); Anion Gap 12.2 (5-19); Aspartate Amino Transferase 18 U/L (0-32); Blood Urea Nitrogen 4 mg/dL (6-20); Calcium 8.1 mg/dL (8.5-10.5); Carbon Dioxide 24 mmol/L (22-29); Chloride 114 mmol/L (98-107); Globulin 3.6 g/dL (1.3-4.6); Glomerular Filtration Rate 182.7 mL/min (90-130); Glucose 156 mg/dL (65-115); Osmolality Calculated 303 mOsm/kg (285-295); Potassium 3.2 mmol/L (3.5-5.1); Sodium 147 mmol/L (136-145); Total Bilirubin 0.4 mg/dL (0.15-1.2); Total Protein 6.2 g/dL (6.6-8.7)
[2019-05-15] MEDS: D5-NS 0.45% + KCL 20 mEq 20 MEQ/1,000 ML BAG 75 MEQ IV (10:21)
--- NOTE | 2019-05-15 10:47 | PC.NURSE ---
progress note Caregiver at bedside.
--- NOTE | 2019-05-15 11:15 | PC.CHAP ---
Pastoral Care Encounter/Spiritual Assessment Type of Contact [] Declined qa automation developer visit [] Patient/Family/Request visit [] Outpatient visit [x] Follow-up visit [] Physician referral [] Code/Alert [] Routine visit [] Staff referral [] Actively dying [] Patient sleeping [] Family support [] [] Out of room [] Palliative care [] [x] Receiving care in room [] Pre-surgical visit [] Trauma [] Long length of stay [] ICU visit [] Other: Relational/Emotional Strength [] Patient feels connected with others/family/visitors/staff [] Distress [] Loneliness/isolation [] Abandonment Spirituality of Patient [] Person of [place] [] Attends Islam of their [place] [] Believes in Prayer [] Reads Bible or Episcopal materials [] There are Spiritual issues to be addressed Environmental Emergencies Assistant Interventions [] Prayer [] Active listening [] Non-anxious presence [] Spiritual/emotional support [] Crisis/trauma care [] Spiritual counseling [] Bereavement support [] Provided bereavement packet [] Provided Bible/devotional materials [] Provided toy/stuffed animal, coloring book to patient or family member [] Provided Communion [] Anointing/[place] [] Salvation [] Completed spiritual assessment [] Other: Impact on Illness or Injury [] Angry [] Fearful [] Anxious [] Often cries [] Exhaustion [] Unable to work [] Unable to attend taoism [] Unable to walk/stand [] Unable to read [] Unable to drive [] Unable to eat/drink [] Unable to sleep [] Unable to be with family [] Patient intubated [] Other: Summary Staff will be busy with pt for extended time. Follow up needed Environmental Emergencies Assistant Penny Patel Time spent with patient 2 minutes
--- NOTE | 2019-05-15 13:38 | PM.PN ---
Subjective Subjective: Interval history: Patient does not communicate much but appears to be more active as per family as they noticed patient started to move her upper extremities instead of keeping them down. She noted to have significant mouth ulcers not suggestive of herpetic lesions. On CT scan of abdomen she was noted to have gallstone air which is concerning for potential underlying cholecystitis especially in view of bilirubinuria. Patient does not communicate much to tell us if she has abdominal pain or not. From exam it is difficult to understand. Family reported that patient grinds her teeth lately which is sign of patient being ill.. She usually able to eat orally soft mechanical diet. She is drooling a lot at baseline and family reported that lately she was coughing to the point she dry heaves. Patient was scheduled to have modified barium swallow today but family reported that she will not be able to see it upright and right now she will not be able to cooperate with swallowing given her altered mental status therefore we will discontinue test at this point. Medications: Reviewed: Yes Vitals/I&O/Wt Last Vital Signs Temp 98.2 F 05/15/19 11:35 Pulse 127 H 05/15/19 11:35 Resp 18 05/15/19 11:35 BP 111/80 05/15/19 11:35 Pulse Ox 95 05/15/19 11:35 05/14/19 05/15/19 05/15/19 22:59 06:59 14:59 Intake Total 1050 / 1360 50 / 1410 1031.25 / 1031.25 Balance 1050 / 1360 50 / 1410 1031.25 / 1031.25 Weight last 48 hrs Weight 44.77 kg Weight 44.77 kg Physical Exam Const: COMMON NORMALS: no apparent distress Resp: COMMON NORMALS: normal respiratory effort OTHER: Minimal bibasilar Rales. Cardio: COMMON NORMALS: regular rate, regular rhythm and S2 normal heart sound RATE: regular rate RHYTHM: regular rhythm HEART SOUNDS: S2 normal OTHER: No lower extremity edema GI: COMMON NORMALS: normal to inspection, nondistended, normoactive bowel sounds, soft to palpation and non-tender PALPATION: Yes soft Neuro: OTHER: Patient spontaneously moves her upper extremities but lower extremities are contracted and paralytic.. No lower extremity edema. Data : 05/14/19 05:28 05/15/19 05:53 Micro: Microbiology 05/13/19 21:10 Urine Culture - Preliminary Urine Catheterized 05/13/19 20:57 Blood Culture - Preliminary Blood NEGATIVE TO DATE 05/13/19 21:08 Blood Culture - Preliminary Blood Gram Negative Rods A&P Assessment and plan (1) Sepsis: Status: Acute Qualifiers: Sepsis acute organ dysfunction status: unspecified Sepsis type: sepsis due to unspecified organism Qualified Code(s): A41.9 - Sepsis, unspecified organism Code(s): A41.9 - Sepsis, unspecified organism (2) Dehydration: Status: Acute Code(s): E86.0 - Dehydration (3) Hypokalemia: Status: Acute Code(s): E87.6 - Hypokalemia (4) Hypernatremia: Status: Acute Code(s): E87.0 - Hyperosmolality and hypernatremia Additional A&P Information Sepsis Cholecystitis cannot be completely ruled out. Gallbladder ultrasound requested and I have discussed with Dr. Francisco who will see patient in consultation. Mucositis. Unable to evaluate oral cavity. Will start nystatin swish and swallow if patient can take it. Dehydration and hypernatremia We will change fluids to D5W. Avoid rapid correction Hypokalemia: Repleted Change site to mechanical given risk of aspiration Spastic quadriplegia: Continue baclofen, ropinirole, For DVT she is on long-term Eliquis DNR/DNI- okay for pressors and ICU admission Attestations Medical Necessity Statement*: Patient with sepsis requires close inpatient monitoring and treatment. Coding Level of Care Code Acute Gre Tutor for [facility] Fwd Diagnoses Sepsis A41.9 Sepsis acute organ dysfunction status: unspecified Sepsis type: sepsis due to unspecified organism Dehydration E86.0 Hypokalemia E87.6 Hypernatremia E87.0
--- NOTE | 2019-05-15 13:41 | P.CONIM_ITS ---
Providers/Reason For Consult Consulting Physican/Specialty*: Shelton Francisco MD General surgery Reason for Consult*: Gallbladder stones Attending Physician: Gunner Mercer MD Primary Care Provider: Vicente Rincon MD History of Present Illness History of Present Illness Myrna Cano is a pleasant 33 year old female apparently with history of cerebral palsy that presented to the emergency department with signs of dehydration, further work-up showed concerns for dehydration and potential sepsis per hospitalist service yet a source was not identified, apparently the patient had poor oral intake and low urine output over the past few days and she was admitted in the interim a CT scan of the abdomen and pelvis 05/13/[address] scan of the abdomen and pelvis findings; 1. Multiple small gas-filled gallstones without evidence of cholecystitis 2. Irregular hypoattenuation mass in the right hepatic lobe exhibiting nodular peripheral enhancement compatible with a benign hemangioma measuring 2 cm. No further workup needed. 3. Numerous punctate densities seen in the left lower lobe posteriorly likely represents inspissated bronchi. Hospital service consulted general surgery for further evaluation with concern about the what so described as small gas-filled gallstones and could be the cause of patient's clinical picture. At her further inquiry with grandma she mentioned that her granddaughter had started sneezing and coughing few days earlier likely she did catch something for mother grand kids that come to the house, less history is being obtained from the patient due to her medical condition After reviewing the images and read the report I did discuss with the radiologist recruitment consultant via the phone with my concerns that the gas filling the stones is basically radiolucent stones rather than actual gas then the radiologist on-call agreed on that and an addendum was added see below: CT/CT abdomen pelvis w con* [id number] Findings were discussed with DR. RENE at 05/15/2019 1:58 PM CDT. Discussed the presence of noncalcified gallstones, and the lack of CT signs to suggest acute cholecystitis. Indicated that there is no evidence of emphysematous cholecystitis. Review of Systems General: Reports: ROS unobtainable due to medical condition Meds/Allergies Home Medications and Allergies Home Medications Medication Instructions Recorded Confirmed Type alprazolam [Xanax] 0.5 mg PO BID 05/13/19 05/13/19 History apixaban [Eliquis] 5 mg PO BID 05/13/19 05/13/19 History citalopram 40 mg PO DAILY 05/13/19 05/13/19 History cyclobenzaprine 10 mg PO BID 05/13/19 05/13/19 History risperidone [Risperdal] 0.5 mg PO BID 05/13/19 05/13/19 History Allergies Allergy/AdvReac Type Severity Reaction Status Date / Time No Known Allergies Allergy Verified 05/15/19 15:05 Current Medications Current Medications Generic Name Dose Route Start Last Admin Trade Name Freq PRN Reason Stop Dose Admin Acetaminophen 650 mg 05/14/19 20:42 05/14/19 21:18 Tylenol PO 650 mg Q4H PRN Administration MILD PAIN OR INCREASE TEMP Alprazolam 0.5 mg 05/14/19 09:00 05/15/19 09:44 Xanax PO Not Given BID LYRIC Apixaban 5 mg 05/14/19 09:00 05/15/19 09:44 Eliquis PO Not Given BID LYRIC Citalopram Hydrobromide 40 mg 05/14/19 09:00 05/15/19 09:44 Celexa PO Not Given DAILY LYRIC Cyclobenzaprine HCl 10 mg 05/14/19 09:00 05/15/19 09:44 Flexeril PO Not Given BID LYRIC Potassium Chloride/Dextrose/Sod Cl 20 meq in 1,000 mls @ 75 mls/hr 05/14/19 00:45 05/15/19 10:21 D5-Ns 0.45% + Kcl 20 Meq IV 75 mls/hr .[id number] LYRIC Administration Piperacillin Sod/Tazobactam 50 mls @ 12.5 mls/hr 05/14/19 05:00 05/15/19 10:25 Sod 3.375 gm/ Sodium Chloride IV 05/17/19 23:59 Infused Q8H LYRIC Infusion Protocol As Directed Risperidone 0.5 mg 05/14/19 09:00 05/15/19 09:44 Risperdal PO Not Given BID LYRIC PFSH Acute PFSH: Medical History Cerebral palsy DVT (deep venous thrombosis) Quadriplegia Spastic quadriplegia Social History Smoking and tobacco status: never smoked Alcohol intake: never Substance/Drug Use: never Lives independently: No Household members: family and caregiver Housing: House Vitals/I&O/Wt Last Vital Signs Temp 98.2 F 05/15/19 11:35 Pulse 127 H 05/15/19 11:35 Resp 18 05/15/19 11:35 BP 111/80 05/15/19 11:35 Pulse Ox 95 05/15/19 11:35 05/14/19 05/15/19 05/15/19 22:59 06:59 14:59 Intake Total 1050 / 1360 50 / 1410 1031.25 / 1031.25 Balance 1050 / 1360 50 / 1410 1031.25 / 1031.25 Weight last 48 hrs Weight 98 lb 11.2 oz Weight 98 lb 11.2 oz Physical Exam Const: EXAM LIMITATIONS: altered mental status and physical limitations GENERAL APPEARANCE: cooperative ORIENTATION/CONSCIOUSNESS: Yes awake HENMT: COMMON NORMALS: normocephalic HEAD & SCALP: normocephalic Eye: COMMON NORMALS: PERRL and no scleral icterus PUPIL: Yes PERRL Lymph: LYMPHATIC: no lymphadenopathy noted Chest: COMMONS NORMALS: inspection of chest normal Resp: COMMON NORMALS: normal respiratory effort and clear to auscultation bilaterally AUSCULTATION: clear to auscultation bilaterally Cardio: COMMON NORMALS: S1 normal heart sound and S2 normal heart sound; negative for no murmurs HEART SOUNDS: S1 normal and S2 normal GI: COMMON NORMALS: soft to palpation; negative for no hepatosplenomegaly INSPECTION: Yes normal to inspection PALPATION: Yes soft, No firm, No tender, No guarding, No rigid and No no hepatosplenomegaly Back/Pelvis: PELVIS: Yes other (No evidence of pressure injury ulcer, exam was done in the presence of patient's female nurse Emily) COCCYX: other (No evidence of pressure injury ulcer, exam was done in the presence of patient's female nurse Emily) Skin: COMMON NORMALS: no rashes or lesions noted GENERAL SKIN EXAM: no rashes or lesions noted Data Micro: Micro: Microbiology 05/13/19 21:10 Urine Culture - Pr eliminary Urine Catheterize d 05/13/19 20:57 Blood Culture - Pr eliminary Blood NEGATIVE TO EVENS E 05/13/19 21:08 Blood Culture - Pr eliminary Blood Gram Negative R ods A&P Assessment and plan (1) Cholelithiasis: After thorough history physical examination and reviewing the chart and images with my personal interpretation, further discussing the CT scan images with the radiologist recruitment consultant, I do believe that the CT scan findings of the gallbladder stones would not explain the patient's clinical picture, I do believe it is an incidental finding of cholelithiasis. If Continues to be a concern about the gallbladder an ultrasound would be more dedicated Meanwhile patient can be fed Keep n.p.o. after midnight for gallbladder ultrasound tomorrow Thank you for consulting general surgery to participate taking care Ms. Cano Status: Acute Code(s): K80.20 - Calculus of gallbladder without cholecystitis without obstruction Consult Attestations Medical Necessity Statement: Per hospitalist service Time Spent in Patient Care: 16 - 35 minutes (>than 50% of time spent in counselling and/or direct pt care on unit) . Coding Level of Care Code Acute Electronic Component Processor for g Fwd Exam Comprehensive Diagnoses Cholelithiasis K80.20
[2019-05-15] MEDS: dextrose 5% 1,000 ML 30 ML IV (15:21)
[2019-05-15] MEDS: cyclobenzaprine 10 mg Tablet PO (18:16)
[2019-05-15] MEDS: nystatin 100,000 unit/mL UDC 5 mL 500000 UNIT PO ×2 (18:16→21:32)
[2019-05-15] MEDS: ALPRAZolam 0.5 mg Tablet PO (18:16)
[2019-05-15] MEDS: apixaban 5 mg Tablet PO (18:16)
[2019-05-15] MEDS: risperiDONE 0.25 mg Tablet 0.5 MG PO (19:00)
[2019-05-16] VITALS (7 sets, daily range): BP systolic 100–166; BP diastolic 50–95; PULSE 82–127; RESP 17–28; TEMP 36.6–37.1; O2SAT 95–100
[2019-05-16] MEDS: piperacillin-tazobactam 3.375 GM in sodium chloride 0.9% (plus) 50 ML IV (05:12)
--- NOTE | 2019-05-16 07:00 | US_ITS ---
WS: [id number] Complete ABDOMINAL ULTRASOUND HISTORY: Cholecystitis COMPARISON: CT abdomen 05/13/2019 Liver: 10.8 cm in length. Normal size liver. Hyperechoic mass in the RIGHT hepatic lobe measures 2.4 x 2.4 cm. No increased vascularity. No bile duct dilatation. Gallbladder: Poorly visualized gallbladder. Gallbladder is full of stones with shadowing. Gallbladder wall thickness: 0.2 cm. Pancreas: Normal size and echogenicity. CBD: 0.3 cm. Right kidney: 8.9 cm x 4.1 cm x 3.6 cm. No mass, cortical thickening or hydronephrosis. Left kidney: Not visualized. Spleen: Normal size and echogenicity. Abdominal aorta and IVC are within normal limits. No ascites. US/US abdomen complete* [id number] IMPRESSION: 1. Cholelithiasis without evidence for acute cholecystitis or biliary obstruct ion. 2. RIGHT hepatic hemangioma measures 2.4 x 2.4 cm in the RIGHT lobe. 3. LEFT kidney not identified and may have been surgically removed.
--- NOTE | 2019-05-16 10:55 | P.PN_ITS ---
Subjective Subjective: Interval history: No apparent distress No acute events overnight Tolerating p.o. intake Vitals/I&O/Wt Last Vital Signs Temp 98.2 F 05/16/19 08:00 Pulse 102 H 05/16/19 08:00 Resp 18 05/16/19 08:00 BP 120/82 05/16/19 08:00 Pulse Ox 99 05/16/19 08:00 05/15/19 05/16/19 05/16/19 22:59 06:59 14:59 Intake Total 375 / 1406.25 50 / 1456.25 Balance 375 / 1406.25 50 / 1456.25 Weight last 48 hrs Weight 98 lb 11.2 oz Physical Exam Narrative: EXAM NARRATIVE: Patient is conscious alert oriented X3 BMI 21.4 Head and neck examination no jaundice Abdomen nontender nondistended soft no organomegaly guarding or rigidity/no signs of peritonitis Data : 05/16/19 10:49 05/16/19 10:49 Micro: Microbiology 05/13/19 21:10 Urine Culture - Final Urine Catheterized A&P Assessment and plan (1) Cholelithiasis: From surgical standpoint of view incidental finding of cholelithiasis does not explain the patient's clinical picture I do believe that the patient got dehydrated she is responding to IV fluid hydration n.p.o. Patient can have soft GI diet and advance as tolerated I would recommend that the patient will follow up with me as an outpatient for further discussion about the potential benefit of gallbladder surgery which I do not see a benefit at this point during this hospitalization. Plan of care has been discussed with the patient's caregiver and she did agree accordingly Once patient cleared from medical site she can be discharged home Assurance and education All questions have been answered and all concerns have been addressed to patient's satisfaction. Thank you for consulting general surgery to participate taking care Ms. Cano Status: Acute Code(s): K80.20 - Calculus of gallbladder without cholecystitis without obstruction Attestations Medical Necessity Statement*: Per hospitalist service Time Spent in Patient Care: 16 - 35 minutes (>than 50% of time spent in counselling and/or direct pt care on unit) . Coding Level of Care Code Acute Thiokol Operator for [facility] [place] Diagnoses Cholelithiasis K80.20
[2019-05-16 10:59] LABS: Basophils % 0.1 %; Eosinophils # 0.2 10^3/uL (0.0-0.8); Eosinophils % 2.2 %; Hematocrit 36.9 % (37.0-47.0); Hemoglobin 10.9 g/dL (11.5-15.3); Lymphocytes # 1.3 10^3/uL (0.8-4.8); Mean Corpuscular HGB Conc 29.5 g/dL (30.0-36.0); Mean Corpuscular Hemoglobin 25.6 pg (28.0-34.0); Mean Corpuscular Volume 86.8 fL (81-99); Mean Platelet Volume 12.7 fL (7.4-10.4); Monocytes # 0.4 10^3/uL (0.2-0.9); Monocytes % 5.1 %; Neutrophils # 6.5 10^3/uL (1.8-7.7); Neutrophils % 77.2 %; Nucleated Red Blood Cells % 0 %; Platelet Count 188 10^3/cmm (130-400); Red Blood Count 4.25 10^6/uL (4.1-5.3); Red Cell Distribution Width 14.1 % (12.1-15.1); White Blood Count 8.4 10^3/uL (4.0-10.0)
[2019-05-16 11:13] LABS: Alanine Aminotransferase 24 U/L (0-33); Albumin Level 2.7 g/dL (3.5-5.2); Alkaline Phosphatase 112 IU/L (35-105); Anion Gap 15.9 (5-19); Blood Urea Nitrogen 3 mg/dL (6-20); Calcium 8.7 mg/dL (8.5-10.5); Carbon Dioxide 22 mmol/L (22-29); Chloride 102 mmol/L (98-107); Globulin 4.5 g/dL (1.3-4.6); Glomerular Filtration Rate 254.7 mL/min (90-130); Glucose 107 mg/dL (65-115); Osmolality Calculated 280 mOsm/kg (285-295); Sodium 137 mmol/L (136-145); Total Bilirubin 0.4 mg/dL (0.15-1.2); Total Protein 7.2 g/dL (6.6-8.7)
[2019-05-16 11:16] LABS: Aspartate Amino Transferase 25 U/L (0-32); Potassium 2.9 mmol/L (3.5-5.1)
[2019-05-16] MEDS: apixaban 5 mg Tablet PO (12:04)
[2019-05-16] MEDS: cyclobenzaprine 10 mg Tablet PO (12:04)
[2019-05-16] MEDS: ALPRAZolam 0.5 mg Tablet PO (12:05)
[2019-05-16] MEDS: citalopram 20 mg Tablet 40 MG PO (12:07)
[2019-05-16] MEDS: nystatin 100,000 unit/mL UDC 5 mL 500000 UNIT PO ×3 (12:08→20:08)
[2019-05-16] MEDS: risperiDONE 0.25 mg Tablet 0.5 MG PO (12:08)
[2019-05-16] MEDS: potassium chloride premix 40 MEQ/100 ML PREMIX 25 MEQ IV ×2 (12:11→16:06)
[2019-05-16] MEDS: lidocaine 1% INJ 20 mL 5 ML IV ×2 (12:12→16:20)
[2019-05-16] MEDS: piperacillin-tazobactam 3.375 GM in sodium chloride 0.9% (plus) 100 ML IV ×2 (13:43→20:10)
--- NOTE | 2019-05-16 16:08 | DCPLANNER ---
Pg 2 of IM updated and reviewed with family member that is at bedside, no questions.
--- NOTE | 2019-05-16 16:29 | P.PN_ITS ---
Subjective Subjective: Interval history: Patient clinically appears to be gradually improving. She appears to be more alert today and keeps her arms up and moving which as per family at bedside is her normal state. She continues to grind her teeth and on exam noted to be diaphoretic today. Her abdominal ultrasound shows cholelithiasis but otherwise no evidence of acute cholecystitis. She still continues to not communicate much there when it was family members. Clinically overall she appears to be gradually improving but so far no obvious evidence of infection. Patient CT scan showed some inspissated secretions secondary to her chronic aspiration. Secondary infectious process can likely play a role there and patient appears to be responding to Zosyn well. Her potassium is 2.9 this morning and 80 meq of potassium was ordered. Medications: Reviewed: Yes Vitals/I&O/Wt Last Vital Signs Temp 97.9 F 05/16/19 15:22 Pulse 114 H 05/16/19 15:22 Resp 18 05/16/19 15:22 BP 120/80 05/16/19 15:22 Pulse Ox 98 05/16/19 15:22 05/16/19 05/16/19 05/16/19 06:59 14:59 22:59 Intake Total 50 / 1456.25 240 / 240 97.917 / 337.917 Balance 50 / 1456.25 240 / 240 97.917 / 337.917 Weight last 48 hrs Weight 44.77 kg Physical Exam Const: COMMON NORMALS: no apparent distress Resp: COMMON NORMALS: normal respiratory effort and clear to auscultation bilaterally AUSCULTATION: clear to auscultation bilaterally OTHER: Minimal bibasilar Rales. Cardio: COMMON NORMALS: regular rate, regular rhythm and S2 normal heart sound RATE: regular rate RHYTHM: regular rhythm HEART SOUNDS: S2 normal OTHER: No lower extremity edema GI: COMMON NORMALS: normal to inspection, nondistended, normoactive bowel sounds, soft to palpation and non-tender PALPATION: Yes soft Neuro: OTHER: Patient spontaneously moves her upper extremities but lower extremities are contracted and paralytic.. No lower extremity edema. Data : 05/16/19 10:49 05/16/19 10:49 Micro: Microbiology 05/13/19 21:10 Urine Culture - Final Urine Catheterized A&P Assessment and plan (1) Sepsis: Status: Acute Qualifiers: Sepsis acute organ dysfunction status: unspecified Sepsis type: sepsis due to unspecified organism Qualified Code(s): A41.9 - Sepsis, unspecified organism Code(s): A41.9 - Sepsis, unspecified organism (2) Dehydration: Status: Acute Code(s): E86.0 - Dehydration (3) Hypokalemia: Status: Acute Code(s): E87.6 - Hypokalemia (4) Hypernatremia: Status: Acute Code(s): E87.0 - Hyperosmolality and hypernatremia Additional A&P Information Sepsis Cholecystitis felt unlikely. Aspiration pneumonia/pneumonitis is a possibility. Patient definitely responding to antibiotic. Mucositis. Unable to evaluate oral cavity. Mucositis appears to be improving with nystatin. Family at bedside report that she tolerates it well. Oral intake was started today as family want to feed patient. Will discontinue IV fluids. Dehydration and hypernatremia, improved Hypokalemia: Repleted Change site to mechanical given risk of aspiration Spastic quadriplegia: I do not see patient being on baclofen or ropinirole. Discussed with RN and we will try to reconcile medications as patient CT screening could be related to withholding baclofen and to avoid withdrawal it will need to be started. For DVT she is on long-term Eliquis DNR/DNI- okay for pressors and ICU admission Attestations Medical Necessity Statement*: Patient with sepsis and suspected aspiration pneumonia requires close inpatient monitoring and treatment will deemed safe for discharge. Coding Level of Care Code Acute Television Service Engineer for [facility] Fwd Diagnoses Sepsis A41.9 Sepsis acute organ dysfunction status: unspecified Sepsis type: sepsis due to unspecified organism Dehydration E86.0 Hypokalemia E87.6 Hypernatremia E87.0
[2019-05-16] MEDS: acetaminophen 325 mg Tablet 650 MG PO (20:08)
[2019-05-17] VITALS: BP 132/78; PULSE 116; RESP 20; TEMP 36.7; O2SAT 98
[2019-05-17] MEDS: acetaminophen 325 mg Tablet 650 MG PO ×3 (01:26→19:29)
[2019-05-17 04:00] VITALS: BP 115/75; PULSE 120; RESP 19; TEMP 35.3; O2SAT 100
[2019-05-17] MEDS: piperacillin-tazobactam 3.375 GM in sodium chloride 0.9% (plus) 100 ML IV ×3 (04:59→21:08)
[2019-05-17 05:44] LABS: Basophils % 0.1 %; Eosinophils # 0.4 10^3/uL (0.0-0.8); Eosinophils % 4.4 %; Hematocrit 35.3 % (37.0-47.0); Hemoglobin 10.5 g/dL (11.5-15.3); Lymphocytes # 1.4 10^3/uL (0.8-4.8); Lymphocytes % 16.7 %; Mean Corpuscular HGB Conc 29.7 g/dL (30.0-36.0); Mean Corpuscular Hemoglobin 26.6 pg (28.0-34.0); Mean Corpuscular Volume 89.6 fL (81-99); Mean Platelet Volume 12.3 fL (7.4-10.4); Monocytes # 0.6 10^3/uL (0.2-0.9); Neutrophils # 6.1 10^3/uL (1.8-7.7); Neutrophils % 71.3 %; Nucleated Red Blood Cells % 0 %; Platelet Count 241 10^3/cmm (130-400); Red Blood Count 3.94 10^6/uL (4.1-5.3); White Blood Count 8.6 10^3/uL (4.0-10.0)
[2019-05-17 05:58] LABS: Alanine Aminotransferase 28 U/L (0-33); Albumin Level 3.1 g/dL (3.5-5.2); Alkaline Phosphatase 105 IU/L (35-105); Anion Gap 17.8 (5-19); Aspartate Amino Transferase 26 U/L (0-32); Blood Urea Nitrogen 6 mg/dL (6-20); Calcium 9.3 mg/dL (8.5-10.5); Carbon Dioxide 22 mmol/L (22-29); Chloride 105 mmol/L (98-107); Globulin 3.8 g/dL (1.3-4.6); Glomerular Filtration Rate 182.7 mL/min (90-130); Glucose 88 mg/dL (65-115); Osmolality Calculated 287 mOsm/kg (285-295); Potassium 3.8 mmol/L (3.5-5.1); Sodium 141 mmol/L (136-145); Total Bilirubin 0.3 mg/dL (0.15-1.2); Total Protein 6.9 g/dL (6.6-8.7)
[2019-05-17 07:55] VITALS: PULSE 124; RESP 18; TEMP 36.3; O2SAT 100
[2019-05-17] MEDS: risperiDONE 0.25 mg Tablet 0.5 MG PO ×2 (10:14→19:02)
[2019-05-17] MEDS: apixaban 5 mg Tablet PO ×2 (10:14→19:00)
[2019-05-17] MEDS: cyclobenzaprine 10 mg Tablet PO ×2 (10:14→19:00)
[2019-05-17] MEDS: ALPRAZolam 0.5 mg Tablet PO ×2 (10:14→19:00)
[2019-05-17] MEDS: citalopram 20 mg Tablet 40 MG PO (10:15)
[2019-05-17] MEDS: nystatin 100,000 unit/mL UDC 5 mL 500000 UNIT PO ×4 (10:51→21:03)
[2019-05-17 11:28] VITALS: BP 130/80; PULSE 121; RESP 18; TEMP 36.8; O2SAT 98
[2019-05-17 15:29] VITALS: BP 96/50; PULSE 123; RESP 18; TEMP 36.6; O2SAT 99
--- NOTE | 2019-05-17 15:49 | PM.PN ---
Subjective Subjective: Interval history: Patient appears to be further improving. She continues to be clenching her teeth and family members report that she always does that whenever she is in pain. I have discussed with family and try to understand where could her pain potentially be coming from. Apparently patient always lays on her abdomen unless she is eating. Laying on her back is very unusual for her. She otherwise appears to be more interactive and objectively better. Medications: Reviewed: Yes Vitals/I&O/Wt Last Vital Signs Temp 97.9 F 05/17/19 15:29 Pulse 123 H 05/17/19 15:29 Resp 18 05/17/19 15:29 BP 96/50 05/17/19 15:29 Pulse Ox 99 05/17/19 15:29 05/17/19 05/17/19 05/17/19 06:59 14:59 22:59 Intake Total 100 / 537.917 580 / 580 Balance 100 / 537.917 580 / 580 Physical Exam Const: COMMON NORMALS: no apparent distress Resp: COMMON NORMALS: normal respiratory effort and clear to auscultation bilaterally AUSCULTATION: clear to auscultation bilaterally OTHER: Minimal bibasilar Rales. Cardio: COMMON NORMALS: regular rate, regular rhythm and S2 normal heart sound RATE: regular rate RHYTHM: regular rhythm HEART SOUNDS: S2 normal OTHER: No lower extremity edema GI: COMMON NORMALS: normal to inspection, nondistended, normoactive bowel sounds, soft to palpation and non-tender PALPATION: Yes soft Neuro: OTHER: Patient spontaneously moves her upper extremities but lower extremities are contracted and paralytic.. No lower extremity edema. Data : 05/17/19 05:27 05/17/19 05:27 Micro: Microbiology 05/13/19 21:08 Blood Culture - Preliminary Blood Acinetobacter lwoffii. A&P Assessment and plan (1) Sepsis: Status: Acute Qualifiers: Sepsis acute organ dysfunction status: unspecified Sepsis type: sepsis due to unspecified organism Qualified Code(s): A41.9 - Sepsis, unspecified organism Code(s): A41.9 - Sepsis, unspecified organism (2) Dehydration: Status: Acute Code(s): E86.0 - Dehydration (3) Hypokalemia: Status: Acute Code(s): E87.6 - Hypokalemia (4) Hypernatremia: Status: Acute Code(s): E87.0 - Hyperosmolality and hypernatremia Additional A&P Information Sepsis Cholecystitis felt unlikely. Aspiration pneumonia/pneumonitis is a possibility but placement of PEG tube may not be the best solution as I think patient enjoys oral intake. Mucositis. Unable to evaluate oral cavity. Mucositis appears to be further improving with nystatin. Dehydration and hypernatremia, improved Hypokalemia: Repleted Change site to mechanical given risk of aspiration Spastic quadriplegia: Family reports that patient never been on baclofen. She continues to take cyclobenzaprine. We will go ahead and change patient's position and lay her on abdomen and see her response and if she continues to improve we could possibly discharge patient tomorrow if oral intake improves. For DVT she is on long-term Eliquis DNR/DNI- okay for pressors and ICU admission Attestations Medical Necessity Statement*: Quadriplegic patient with what appears to be aspiration pneumonia and ongoing discomfort requires inpatient monitoring and treatment until deemed safe for discharge. Coding Level of Care Code Acute Melt House Centrifugal Operator for [facility] Diagnoses Sepsis A41.9 Sepsis acute organ dysfunction status: unspecified Sepsis type: sepsis due to unspecified organism Dehydration E86.0 Hypokalemia E87.6 Hypernatremia E87.0
[2019-05-17 19:54] VITALS: BP 131/82; PULSE 129; RESP 18; TEMP 36.8; O2SAT 98
[2019-05-17] MEDS: lanolin oint 7 gm 1 APPLIC TOPICAL (20:04)
[2019-05-18] VITALS: BP 128/76; PULSE 119; RESP 17; TEMP 37.2; O2SAT 96
[2019-05-18 03:55] VITALS: BP 128/85; PULSE 122; RESP 16; TEMP 36.4; O2SAT 94
[2019-05-18] MEDS: piperacillin-tazobactam 3.375 GM in sodium chloride 0.9% (plus) 100 ML IV ×2 (05:33→13:17)
--- NOTE | 2019-05-18 06:42 | PC.NURSE ---
SHIFT SUMMARY Has been awake most every time in room tonight. Is nonverbal. Oral secretions drool from mouth and has some occ blood tinging from mouth sores. Has been repositioned through night and changed as needed for incont urine. Sister at bedside all night. Is very caring with Myrna
[2019-05-18 07:33] VITALS: BP 117/74; PULSE 118; RESP 18; TEMP 36.4; O2SAT 98
[2019-05-18] MEDS: apixaban 5 mg Tablet PO (09:44)
[2019-05-18] MEDS: cyclobenzaprine 10 mg Tablet PO (09:44)
[2019-05-18] MEDS: citalopram 20 mg Tablet 40 MG PO (09:44)
[2019-05-18] MEDS: risperiDONE 0.25 mg Tablet 0.5 MG PO (09:44)
[2019-05-18] MEDS: nystatin 100,000 unit/mL UDC 5 mL 500000 UNIT PO ×2 (09:45→14:53)
--- NOTE | 2019-05-18 10:30 | PC.SOCIAL ---
Addendum entered by YUMIKO Delcid 05/18/19 10:56: Reviewed with legal guardian Rosita Duval Original Note: Important Medicare Message Reviewed previously signed page 2 Important Medicare Message with patient. Provided with updated copy. Updated copy in chart.
[2019-05-18 11:32] VITALS: BP 122/83; PULSE 126; RESP 18; TEMP 37; O2SAT 99
--- NOTE | 2019-05-18 14:34 | PM.DCS ---
Discharge Providers Date of Admission: 05/13/19 23:50 Date of Discharge: May 18, 2019 Attending Provider at Admission: Concepción Bowman MD Attending Provider at Discharge: Gunner Mercer MD Primary Care Provider: Vicente Rincon MD Diagnoses at Discharge Discharge Diagnosis (1) Sepsis: Status: Acute Qualifiers: Sepsis acute organ dysfunction status: unspecified Sepsis type: sepsis due to unspecified organism Qualified Code(s): A41.9 - Sepsis, unspecified organism (2) Dehydration: Status: Acute (3) Hypokalemia: Status: Acute (4) Hypernatremia: Status: Acute (5) Aspiration pneumonia due to saliva: Status: Acute Reason for Visit Reason for Visit: Reason For Visit: [facility] Hospital Course Discharge Summary: Patient is quadriplegic due to cerebral palsy presented with altered mental status and decreased oral intake. She has been very diaphoretic and met sepsis criteria. Her source of infection felt to be secondary to aspiration pneumonia. She was started on Zosyn and gradually improved and this morning family at bedside reports that patient is doing much better and he feels okay for patient to be dismissed home. Patient appears to be more interactive and does not grind her teeth anymore. Her mouth blisters much improved. I will continue cefdinir and Flagyl for 1 more week for treatment of aspiration pneumonia especially since patient has very poor dentition. I will also initiate scopolamine patch to decrease amount of saliva to minimize risk of aspiration. Family reported patient's oral intake is improved. Physical Exam Const: COMMON NORMALS: no apparent distress Resp: COMMON NORMALS: normal respiratory effort and clear to auscultation bilaterally AUSCULTATION: clear to auscultation bilaterally Cardio: OTHER: No lower extremity edema GI: COMMON NORMALS: normal to inspection, nondistended, normoactive bowel sounds, soft to palpation and non-tender PALPATION: Yes soft Discharge Data Data Completed and Pending: Completed Studies During Hospitalization Category Date Time Status CT abdomen pelvis w con* [id number] Urge nt Cat Scan 05/13/19 22:48 Completed XR chest 1V loretta ble [id number] Stat Exams 05/13/19 20:42 Completed US abdomen comple te* [id number] Routine Ultrasound 05/16/19 07:00 Completed Pending at discharge Category Date Time Status Blood Culture Sta t Lab 03/07/20 21:08 Results Vitals: Last Vital Signs Temp 98.6 F 05/18/19 11:32 Pulse 126 H 05/18/19 11:32 Resp 18 05/18/19 11:32 BP 122/83 05/18/19 11:32 Pulse Ox 99 05/18/19 11:32 Discharge Plan Discharge Patient Disposition: Home, Self-Care Condition: Stable Prescriptions: New nystatin 100,000 unit/mL Suspension 500,000 unit PO QID Qty: 1 RF: 0 cefdinir 300 mg capsule 300 mg PO Q12H 10 Days Qty: 20 RF: 0 metronidazole [Flagyl] 500 mg tablet 500 mg PO Q8H 10 Days Qty: 30 RF: 0 scopolamine base 1 mg over 3 days patch 3 day 1 patch TRANSDERMA Q3D Qty: 3 RF: 0 Continued cyclobenzaprine 10 mg Tablet 10 mg PO BID RF: 0 citalopram 40 mg Tablet 40 mg PO DAILY RF: 0 Xanax 0.5 mg Tablet 0.5 mg PO BID RF: 0 Risperdal 0.5 mg Tablet 0.5 mg PO BID RF: 0 Eliquis 5 mg Tablet 5 mg PO BID RF: 0 Discharge Orders: Discharge Order (Routine); Ordered 05/18/19 Ordered By: Gunner Mercer Referrals: Vicente Rincon MD [Primary Care Provider] - 4-7 days Discharge Diet: Usual diet Discharge Activity: Resume usual activity Activity Restrictions/Additional Instructions: Please call your doctor or present to emergency department if your condition worsens or you develop diarrhea. Discharge Attestations Time Spent in Discharge Care*: greater than 30 min Quality Metrics Clinical Quality Measures During this hospital stay, did patient experience: None Coding Level of Care Code Acute Clinical Account Executive for [facility] Fwd Diagnoses Sepsis A41.9 Sepsis acute organ dysfunction status: unspecified Sepsis type: sepsis due to unspecified organism Dehydration E86.0 Hypokalemia E87.6 Hypernatremia E87.0 Aspiration pneumonia due to saliva J69.0
[2019-05-18 15:02] VITALS: BP 128/82; PULSE 128; RESP 18; TEMP 36.7; O2SAT 98
[2019-05-18 15:11] VITALS: BP 128/82; PULSE 128; RESP 18; TEMP 36.7; O2SAT 98
--- NOTE | 2019-05-23 11:30 | PC.SOCIAL ---
Called [facility] pharmacy to clarify the nystatin. should be taken four times daily and dispense one bottle with no refills.
== END 2019-05-18 15:38 | disposition home or self-care (01) | DRG 871 ==
LOC: ER 20:48 → MEDSURG 05-14 00:06
PROVIDERS: Student in an Organized Health Care Education/Training Program; Admitting Provider Internal Medicine; Emergency Provider Emergency Medicine; Family Provider Family Medicine; PCP Family Medicine; Visit Provider Internal Medicine
DX: A41.9 Sepsis, unspecified organism (principal); J69.0 Pneumonitis due to inhalation of food and vomit; G82.50 Quadriplegia, unspecified; E87.0 Hyperosmolality and hypernatremia; E86.0 Dehydration; E87.6 Hypokalemia; K80.20 Calculus of gallbladder without cholecystitis without obstruction; K12.30 Oral mucositis (ulcerative), unspecified; Z66 Do not resuscitate
CPT/HCPCS: 12345; 36415; 71045; 74177; 76700; 80048; 80053; 81001; 82009; 83605; 83690; 83735; 84100; 84484; 85025; 87040; 87077; 87086; 87186; 87205; 87804; 93005; 94640; 94762; 96375; 99284; J2001; J2405; J2543; J3480; J7030; J7050; Q9967

== ENCOUNTER 2019-05-26 15:13 | Inpatient (IN) | payer MEDICARE, MEDICAID, SELFPAY ==
[2019-05-26] VITALS (30 sets, daily range): BP systolic 109–118; BP diastolic 78–92; PULSE 129–159; RESP 17–41; TEMP 36.1–36.5; O2SAT 93–99; BMI 21.9
--- NOTE | 2019-05-26 15:32 | XR_ITS ---
WS: [id number] XR chest 1V portable [id number] REASON FOR EXAM: cough FINDINGS: The splenic flexure is elevated and there is bowel in the splenic flexure. A scoliotic curve convex to the right. The lung torre appear to be normally aerated. No pneumonia, pleural effusion, pulmonary edema, mass effect, or pneumothorax. The heart mediastinum were normal. XR/XR chest 1V portable [id number] IMPRESSION: Elevation of the left hemidiaphragm with findings suggesting splenic flexure sy ndrome with gas in the splenic flexure. Findings severe scoliotic curve thoraco lumbar Negative chest for active pathology.
--- NOTE | 2019-05-26 15:33 | ECG_ITS ---
Measurements Intervals [place] Rate: 157 P: 67 DC: 88 QRS: 42 QRSD: 71 T: 50 QT: 279 QTc: 451 SINUS TACHYCARDIA WITH SHORT DC INTERVAL, POSSIBLE ATRIAL FLUTTER CRITICAL TEST RESULT Compared to ECG 05/14/2019 04:05:33 T-wave abnormality no longer present Electronically Signed On 05-27-2019 8:03:45 CDT by Sarah Menon [email or web address]
--- NOTE | 2019-05-26 15:35 | ED_ITS ---
HPI - Fever General: Chief Complaint: Fever Stated Complaint: Doesn't feel well Time Seen by Provider: 05/26/19 15:29 Source: family Mode of arrival: wheelchair Limitations: physical limitation History of Present Illness: HPI Narrative: 33-year-old female with a history of cerebral palsy that guardian here states that she has had a slight fever over the last day and has had decreased oral intake. Patient was recently admitted here last week for a pneumonia along with hypokalemia. Sister states she has been acting the same since then. Patient is nonverbal and unable to say any complaints. She is tachycardic the sister states that she is very tachycardic the whole time she was here last time. Review of Systems General: Reports: ROS unobtainable due to medical condition PFSH ED PFSH: Social History Smoking and tobacco status: never smoked Alcohol intake: never Lives independently: No Household members: family and caregiver Housing: House Physical Exam Const: COMMON NORMALS: alert EXAM LIMITATIONS: altered mental status and physical limitations HENMT: COMMON NORMALS: normocephalic and head/scalp atraumatic HEAD & SCALP: normocephalic and atraumatic Eye: COMMON NORMALS: PERRL and EOMs intact bilaterally PUPIL: Yes PERRL Neck/C-Spine: COMMON NORMALS: full ROM, supple and no meningeal signs Chest: COMMONS NORMALS: inspection of chest normal and palpation of chest normal Resp: COMMON NORMALS: normal respiratory effort, no retractions, no use of accessory muscles and clear to auscultation bilaterally AUSCULTATION: clear to auscultation bilaterally Cardio: COMMON NORMALS: regular rhythm and no murmurs RATE: tachycardic RHYTHM: regular rhythm GI: COMMON NORMALS: normal to inspection, nondistended, normoactive bowel sounds, soft to palpation, non-tender and no masses PALPATION: Yes soft Extremity: COMMON NORMALS: normal to inspection and full ROM Neuro: SENSORIUM/ORIENTATION: Yes alert MENINGEAL SIGNS: Yes no meningeal signs Psych: APPEARANCE: Yes grossly normal Skin: COMMON NORMALS: no rashes or lesions noted and no wounds GENERAL SKIN EXAM: no rashes or lesions noted Course Vital Signs: Vital signs: Vital Signs Temperature 97.7 F 05/26/19 15:19 Pulse Rate 159 H 05/26/19 15:19 Respiratory Rate 17 05/26/19 15:19 Blood Pressure 118/89 05/26/19 15:19 Pulse Oximetry 93 05/26/19 15:19 MDM - Fever MDM Narrative: Medical decision making narrative: Patient presents here with decreased eating and drinking at home likely causing dehydration. Patient has an elevated BUN and is hyponatremic here as well. She was tachycardic into the 150s and 160s when she first arrived here. After IV fluids patient's heart rate is improving and is 132. She has no signs of sepsis and x-ray showed no pneumonia. Patient has had a history of dysphagia and family has discussed possibility of PEG or NG feedings. I spoke to hospitalist and will admit and give IV fluids to further hydrate at this time. Lab Data: Labs: Lab Results 05/26/19 05/26/19 05/26/19 Range/Units 15:48 15:48 16:14 WBC 12.1 H (4.0-10.0) 10^3/ uL RBC 5.49 H (4.1-5.3) 10^6/u L Hgb 14.1 (11.5-15.3) g/dL Hct 49.6 H (37.0-47.0) % MCV 90.3 (81-99) fL MCH 25.7 L (28.0-34.0) pg MCHC 28.4 L (30.0-36.0) g/dL RDW 15.4 H (12.1-15.1) % Plt Count 396 (130-400) 10^3/c mm MPV 12.4 H (7.4-10.4) fL Neut % (Auto) 73.8 % Lymph % (Auto) 18.7 % Bledsoe % (Auto) 6.9 % Eos % (Auto) 0.0 % Baso % (Auto) 0.3 % Neut # (Auto) 8.9 H (1.8-7.7) 10^3/u L Lymph # (Auto) 2.3 (0.8-4.8) 10^3/u L Bledsoe # (Auto) 0.8 (0.2-0.9) 10^3/u L Eos # (Auto) 0.0 (0.0-0.8) 10^3/u L Baso # (Auto) 0.0 (0.0-0.1) 10^3/u L Nucleated RBC % (a uto) 0 % Nucleated RBCs # 0.0 /100WBC Sodium 159 H (136-145) mmol/L Potassium 3.5 (3.5-5.1) mmol/L Chloride 113 H (98-107) mmol/L Carbon Dioxide 28 (22-29) mmol/L Anion Gap 21.5 H (5-19) BUN 20 (6-20) mg/dL Creatinine 0.9 (0.5-0.9) mg/dL GFR Calculation 71.7 L (90-130) mL/min Glucose 159 H (65-115) mg/dL Calculated Osmolal ity 328 H (285-295) mOsm/k g Calcium 9.9 (8.5-10.5) mg/dL Total Bilirubin 0.4 (0.15-1.2) mg/dL AST 24 (0-32) U/L ALT 23 (0-33) U/L Alkaline Phosphata se 78 (35-105) IU/L Total Protein 8.0 (6.6-8.7) g/dL Albumin 4.4 (3.5-5.2) g/dL Globulin 3.6 (1.3-4.6) g/dL Lipase 28 (13-60) U/L Urine Color Dark yellow (Yellow) Urine Appearance Cloudy (CLEAR) Urine pH 5 (5-7) Ur Specific Gravit y 1.020 (1.005-1.030) Urine Protein 1+ H (Negative) Urine Glucose (UA) Norm (Normal) Urine Ketones 1+ H (Negative) Urine Blood 3+ H (Negative) Urine Nitrate Negative (Negative) Urine Bilirubin 1+ H (NEGATIVE) Urine Urobilinogen 1 H (Negative) mg/dL Ur Leukocyte Angélica ase Trace H (Negative) Urine RBC 5-10 H (0-2) /hpf Urine WBC 0-4 H (0-5) /hpf Ur Squamous Epith Cells 0-4 H (0-5) Amorphous Sediment 2+ Urine Bacteria 2+ H (NONE) Urine Mucus 2+ Imaging Data^: CXR: Attestation: I personally reviewed and interpreted this imaging study as follows: Radiologist's impression: [address] [place] [address] XRay Report Signed Patient: Myrna Cano Unit #: [id number] : 1985 Age/Sex: 33 / F ADM Date: 05/26/19 Loc: ER Room/Bed: Attending Dr: Ordering Provider/Ordering MD: Sunita Camarena MD Date of Service: 05/26/19 Procedure(s): XR chest 1V portable [id number] Accession Number(s): [id number] Report Number: [id number] WS: [id number] XR chest 1V portable [id number] REASON FOR EXAM: cough FINDINGS: The splenic flexure is elevated and there is bowel in the splenic flexure. A scoliotic curve convex to the right. The lung torre appear to be normally aerated. No pneumonia, pleural effusion, pulmonary edema, mass effect, or pneumothorax. The heart mediastinum were normal. XR/XR chest 1V portable [id number] IMPRESSION: Elevation of the left hemidiaphragm with findings suggesting splenic flexure syndrome with gas in the splenic flexure. Findings severe scoliotic curve thoracolumbar Negative chest for active pathology. EKG Data^: EKG 1: Attestation: I personally reviewed and interpreted this EKG as follows: EKG interpretation date: 05/26/19 EKG interpretation time: 16:02 Interpretation: sinus tach hr [address] or t wave abnormalities qrs 71 qtc 367 Discharge Plan Discharge Patient Disposition: Admitted As Inpatient Clinical Impression: Hypernatremia, Acute dehydration Condition: Stable Referrals: Vicente Rincon MD [Primary Care Provider] - Coding Level of Care Code ED Refrigerated National Truck Driver for Chg Fwd Exam Comprehensive
[2019-05-26 15:53] LABS: Basophils % 0.3 %; Hematocrit 49.6 % (37.0-47.0); Hemoglobin 14.1 g/dL (11.5-15.3); Lymphocytes # 2.3 10^3/uL (0.8-4.8); Lymphocytes % 18.7 %; Mean Corpuscular HGB Conc 28.4 g/dL (30.0-36.0); Mean Corpuscular Hemoglobin 25.7 pg (28.0-34.0); Mean Corpuscular Volume 90.3 fL (81-99); Mean Platelet Volume 12.4 fL (7.4-10.4); Monocytes # 0.8 10^3/uL (0.2-0.9); Monocytes % 6.9 %; Neutrophils # 8.9 10^3/uL (1.8-7.7); Neutrophils % 73.8 %; Nucleated Red Blood Cells % 0 %; Platelet Count 396 10^3/cmm (130-400); Red Blood Count 5.49 10^6/uL (4.1-5.3); Red Cell Distribution Width 15.4 % (12.1-15.1); White Blood Count 12.1 10^3/uL (4.0-10.0)
[2019-05-26] MEDS: ondansetron 2 mg/ML SDV 2 mL 4 MG IVP (16:04)
[2019-05-26] MEDS: sodium chloride 0.9% 1,000 ML 999 ML IV (16:06)
[2019-05-26 16:23] LABS: Alanine Aminotransferase 23 U/L (0-33); Albumin Level 4.4 g/dL (3.5-5.2); Alkaline Phosphatase 78 IU/L (35-105); Anion Gap 21.5 (5-19); Aspartate Amino Transferase 24 U/L (0-32); Blood Urea Nitrogen 20 mg/dL (6-20); Calcium 9.9 mg/dL (8.5-10.5); Carbon Dioxide 28 mmol/L (22-29); Chloride 113 mmol/L (98-107); Globulin 3.6 g/dL (1.3-4.6); Glomerular Filtration Rate 71.7 mL/min (90-130); Glucose 159 mg/dL (65-115); Lipase 28 U/L (13-60); Osmolality Calculated 328 mOsm/kg (285-295); Potassium 3.5 mmol/L (3.5-5.1); Sodium 159 mmol/L (136-145); Total Bilirubin 0.4 mg/dL (0.15-1.2)
[2019-05-26 16:37] LABS: Add Urine Microscopic? YES; Bilirubin Urine 1+ (NEGATIVE); Blood Urine 3+ (Negative); Glucose Urine UA Norm (Normal); Ketones Urine 1+ (Negative); Leukocyte Esterase Urine Trace (Negative); Nitrate Urine Negative (Negative); Protein Urine 1+ (Negative); Urine Appearance Cloudy (CLEAR); Urine Color Dark Yellow (Yellow); Urobilinogen Urine 1 mg/dL (Negative); pH Urine 5 (5-7)
[2019-05-26 17:02] LABS: Add Urine Culture? Yes; Amorphous Sediment Urine 2+; Bacteria Urine 2+; Mucus Urine 2+; Squamous Epithelial Cell Urine 0-4 (0-5); WBC Urine 0-4 /hpf (0-5)
--- NOTE | 2019-05-26 17:19 | USCV_ITS ---
Myrna Cano Age: 33 Gender: F : 1985 Exam Date: 05/26/2019 17:46 Ordering Phys: Will Parson MD Technologist: JUNG VERAS Exam Location: [facility] [place]_ Indication: R/O DVT HISTORY: R/O DVT. Hx of DVT. PROCEDURES: Examined bilaterally were the greater saphenous, common femoral, femoral, profunda, popliteal, posterior tibial veins, and peroneal trunk.. FINDINGS: All veins examined appear free of thrombus. No filling defects on color Doppler flow analysis. Vein flow and caliber vary with respiration. Increase in venous flow with augmentation. All veins appear compressible.. CONCLUSIONS No evidence of DVT in the above-mentioned identifiable veins. Relatively small caliber veins bilaterally. Dr Roger Corona MD [facility] (Electronically Signed) Final Date: 26 May 2019 18:55 S
--- NOTE | 2019-05-26 17:19 | CTR_ITS ---
PROCEDURE INFORMATION: Exam: CT Chest Without Contrast Exam date and time: 05/26/2019 5:37 PM Age: 33 years old Clinical indication: Abdominal tenderness; Cough and shortness of breath; Additional info: Copd/pna TECHNIQUE: Imaging protocol: Computed tomography of the chest without contrast. Total DLP: 887.24 mGy-cm Radiation optimization: All CT scans at this facility use at least one of these dose optimization techniques: automated exposure control; mA and/or kV adjustment per patient size (includes targeted exams where dose is matched to clinical indication); or iterative reconstruction. COMPARISON: CT abdomen pelvis w con* [id number] 05/13/2019 11:44 PM FINDINGS: Lungs: Currently no visible evidence of active cardiopulmonary/cardiothoracic pathologic process. No visible active interstitial or alveolar airspace disease. Pleural space: Unremarkable. No pneumothorax. No pleural effusion. Heart: Unremarkable. No cardiomegaly. No pericardial effusion. Aorta: Unremarkable. No aortic aneurysm. Lymph nodes: Unremarkable. No enlarged lymph nodes. Bones/joints: No visible active musculoskeletal pathology. Soft tissues: Unremarkable. IMPRESSION: Currently no visible evidence of active or acute cardiopulmonary/cardiothoracic process. PROCEDURE INFORMATION: Exam: CT Abdomen And Pelvis Without Contrast Exam date and time: 05/26/2019 5:37 PM Age: 33 years old Clinical indication: Abdominal tenderness; Cough and shortness of breath; Additional info: Copd/pna TECHNIQUE: Imaging protocol: Computed tomography of the abdomen and pelvis without contrast. Total DLP: 887.24 mGy-cm Radiation optimization: All CT scans at this facility use at least one of these dose optimization techniques: automated exposure control; mA and/or kV adjustment per patient size (includes targeted exams where dose is matched to clinical indication); or iterative reconstruction. COMPARISON: CT abdomen pelvis w con* [id number] 05/13/2019 11:44 PM FINDINGS: Liver: The medial segment right hepatic lobe cavernous hemangioma is barely perceptible on today's exam without contrast enhancement. Gallbladder and bile ducts: Gallbladder contains several small cholesterol gallstones. No visible intra or extrahepatic biliary ectasia. Pancreas: Pancreas unremarkable. No visible pancreatic ductal ectasia. Spleen: Spleen unremarkable. Adrenals: Adrenal glands unremarkable. Kidneys and ureters: Kidneys unremarkable. No visible hydronephrosis or perinephric fluid. Stomach and bowel: Nonobstructive bowel pattern. No visible evidence of adynamic or reactive ileus. Appendix: The appendix is not definitely identified. No visible evidence of acute appendicitis, however. No visible right lower quadrant inflammatory response. Intraperitoneal space: No visible intraperitoneal ascites. No free fluid the pelvis. Vasculature: Unremarkable. No abdominal aortic aneurysm. Lymph nodes: No visible mesenteritis/panniculitis or mesenteric lymphadenitis/lymphadenopathy. Bladder: Unremarkable as visualized. Reproductive: Unremarkable as visualized. Bones/joints: Dextroscoliosis of the distal thoracic and lumbar spine of 41 degrees. No visible active musculoskeletal pathology, however. Soft tissues: Unremarkable. Other findings: Currently no visible evidence of active or acute abdominal or pelvic pathologic process. CT/CT chest abd pel wo con IMPRESSION: 1. Currently no visible evidence of active or acute abdominal or pelvic pathologic process. 2. Cholesterol cholelithiasis. 3. Known medial segment right hepatic lobe cavernous hemangioma. 4. The appendix is not definitely identified. No gross evidence of acute appendicitis, however. 5. Scoliosis. Radiation Dose CTDIVOL = (mGy): DLP = 887.24~887.24 (mGy-cm)
--- NOTE | 2019-05-26 17:27 | PC.PHAR ---
pts family states this is all the medications the pt takes,pts family states they havent gave the pt quetiapine er 300mg for a month or so
--- NOTE | 2019-05-26 17:31 | PC.NURSE ---
patients bladder scanned with total of 25 ml in bladder
[2019-05-26 17:48] LABS: Lactic Sepsis W/Reflex 1.7 mmol/L (0.5-2.2)
[2019-05-26] MEDS: piperacillin-tazobactam 3.375 GM in sodium chloride 0.9% (plus) 50 ML IV (17:48)
[2019-05-26 18:33] LABS: Influenza A by IFA Negative (Negative); Influenza B by IFA Negative (Negative)
[2019-05-26 18:57] LABS: Anion Gap 14.3 (5-19); Blood Urea Nitrogen 17 mg/dL (6-20); Calcium 8.3 mg/dL (8.5-10.5); Carbon Dioxide 29 mmol/L (22-29); Chloride 118 mmol/L (98-107); Glomerular Filtration Rate 95.8 mL/min (90-130); Glucose 134 mg/dL (65-115); Osmolality Calculated 324 mOsm/kg (285-295); Potassium 3.3 mmol/L (3.5-5.1); Sodium 158 mmol/L (136-145); Thyroid Stimulating Hormone 0.67 uIU/mL (0.27-4.20)
--- NOTE | 2019-05-26 19:04 | PM.HP ---
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 Admission patient had blood culture positive for Acinetobacter and she was discharged on cefdinir with a course of 10 days. As per the medical research scientist since discharge patient has not felt well at all. She states her oral intake has been extremely poor has been getting worse. For last few days whenever she would eat something she would cough and would not be able to swallow. Patient has not had any bowel movements since the day of discharge. She denies of any fever, chills, vomiting, diarrhea, runny nose, sick contacts other than 2 children who is been having sniffles at home. There has not been any visitors who have traveled outside [place]. Founder And President has not noticed any change in color or smell of the urine. In ER blood work showed hypernatremia up to 159. Review of Systems General: Reports: ROS unobtainable due to mental status Narrative: Unable to obtain directly from the patient because of poor mental status but has been negative as per the medical research scientist which has been specified in the HPI. Medications/Allergies Home Medications Medication Instructions Recorded Confirmed Last Taken Type acetaminophen [Tylenol] 325 mg PO PRN 05/26/19 05/26/19 Unknown History diphenhydramine HCl [Benadryl] 50 mg PO DAILY PRN 05/26/19 05/26/19 05/25/19 History norgestimate-ethinyl estradiol 1 tab PO DAILY 05/26/19 05/26/19 05/25/19 History [Tri-Sprintec (28)] risperidone See Rx Instructions .ROUTE .COMPLEX 05/26/19 05/26/19 05/25/19 History Allergies Allergy/AdvReac Type Severity Reaction Status Date / Time No Known Allergies Allergy Verified 05/15/19 15:05 PFSH Acute PFSH: Social History Smoking and tobacco status: never smoked Alcohol intake: never Lives independently: No Household members: family and caregiver Housing: House Vitals/I&O/Wt Last Vital Signs Temp 97.0 F L 05/26/19 18:31 Pulse 131 H 05/26/19 18:31 Resp 23 H 05/26/19 18:31 BP 115/78 05/26/19 18:31 Pulse Ox 97 05/26/19 18:31 Weight last 48 hrs Weight 44.452 kg Physical Exam Narrative: EXAM NARRATIVE: General: No acute distress, looks anxious HEENT: PERRLA, pupils bilaterally equal and reactive Chest: Normal vesicular breath sounds, no added sounds, equal good air entry bilaterally CVS: S1-S2 regular, no murmurs, tachycardia, no gallops, no rubs Abdomen: Generally soft except guarding present in right upper quadrant, possible organomegaly present in right upper quadrant, bowel sounds sluggish. Neuro: Spastic quadriplegia Data : 05/26/19 15:48 05/26/19 18:19 Micro: Microbiology 05/26/19 17:19 Blood Culture - Preliminary Blood SPECIMEN COLLECTED 05/26/19 17:14 Blood Culture - Preliminary Blood SPECIMEN COLLECTED A&P Assessment and plan (1) Acute dehydration: Status: Acute Code(s): E86.0 - Dehydration (2) Hypernatremia: Status: Acute Code(s): E87.0 - Hyperosmolality and hypernatremia (3) Hypokalemia: Status: Acute Code(s): E87.6 - Hypokalemia (4) Aspiration pneumonia due to saliva: Status: Acute Code(s): J69.0 - Pneumonitis due to inhalation of food and vomit (5) DVT (deep venous thrombosis): Status: Acute Code(s): I82.409 - Acute embolism and thrombosis of unspecified deep veins of unspecified lower extremity Additional A&P Information Hypernatremia: Secondary to severe dehydration secondary to poor oral intake. Patient was given 2 L of normal saline in the ER. Switch fluids to D5 half NS at 150 cc/h. Check sodium levels every 12 hourly. Hypokalemia: We will replete with 40 mEq IV. Poor oral intake/aspiration pneumonia: As per the history patient is not able to tolerate anything orally. Patient is not a good candidate for modified barium swallow because she cannot sit up straight. We will try for FEES study if not successful will consult Dr. Rodriguez from ENT for possible endoscopy. Discussed with the medical research scientist regarding different modalities for nutrition including NG tube placement and PEG tube placement. As per the medical research scientist there has been discussions before and they would consider if required. Bacteremia: Recent bacteremia from actinobacter. Given continuous decline since last discharge cannot rule out bacteremia. Stat blood culture, urinalysis, urine culture. For now start patient empirically on Zosyn which should cover both for aspiration pneumonia and for Acinetobacter as per the culture sensitivity from last time. CT chest abdomen pelvis without contrast to rule out pneumonitis, intra-abdominal collection. History of DVT: Check lower limb Dopplers to rule out acute DVT as patient has not been able to take medications on and off.. Continue on Eliquis. Continue chronic medications like citalopram cyclobenzaprine, Xanax at home dose. CODE STATUS: As per the medical research scientist patient is DNR/DNI, limited resuscitation to ICU admission and pressor support. N.p.o. for now except medications. Eliquis will work for DVT prophylaxis as well. Attestations Medical Necessity Statement*: For more than 2 midnights for severe dehydration leading to hypernatremia Time Spent in Patient Care: Greater than 35 minutes (>than 50% of time spent in counselling and/or direct pt care on unit). Coding Level of Care Code Acute Reservations Agent for Chg Fwd Diagnoses Acute dehydration E86.0 Hypernatremia E87.0 Hypokalemia E87.6 Aspiration pneumonia due to saliva J69.0 DVT (deep venous thrombosis) I82.409
[2019-05-26 19:18] LABS: Procalcitonin 0.09 ng/mL (0-0.5)
[2019-05-26 19:29] LABS: Iron 23 ug/dL (37-145); Percent Saturation 12.3 % (20-50); Total Iron Binding Capacity 186 mcg/dl; Unsaturated Iron Binding 163 ug/dL (112-347)
[2019-05-26] MEDS: famotidine 20 mg/2 mL INJ IVP (21:20)
[2019-05-26] MEDS: dextrose 5%-sod chloride 0.45% 1,000 ML 150 ML IV (21:22)
[2019-05-26] MEDS: risperiDONE 1 mg Tablet 2 MG PO (21:28)
[2019-05-26] MEDS: ipratropium-albuterol 3 mL Neb INHALATION (21:37)
[2019-05-27] VITALS (15 sets, daily range): BP systolic 91–117; BP diastolic 54–75; PULSE 108–136; RESP 17–28; TEMP 36.4–37.1; O2SAT 96–100
[2019-05-27] MEDS: piperacillin-tazobactam 3.375 GM in sodium chloride 0.9% (plus) 50 ML IV ×3 (01:50→17:42)
[2019-05-27] MEDS: ipratropium-albuterol 3 mL Neb INHALATION ×4 (02:31→21:00)
[2019-05-27 05:06] LABS: Basophils % 0.3 %; Eosinophils % 0.2 %; Hemoglobin 10.9 g/dL (11.5-15.3); Lymphocytes # 2.3 10^3/uL (0.8-4.8); Mean Corpuscular HGB Conc 27.9 g/dL (30.0-36.0); Mean Corpuscular Hemoglobin 25.7 pg (28.0-34.0); Monocytes # 0.8 10^3/uL (0.2-0.9); Monocytes % 7.7 %; Neutrophils # 7.2 10^3/uL (1.8-7.7); Neutrophils % 69.6 %; Nucleated Red Blood Cells % 0 %; Platelet Count 232 10^3/cmm (130-400); Red Blood Count 4.24 10^6/uL (4.1-5.3); Red Cell Distribution Width 15.5 % (12.1-15.1); White Blood Count 10.3 10^3/uL (4.0-10.0)
[2019-05-27] MEDS: risperiDONE 1 mg Tablet PO (05:13)
[2019-05-27 05:15] LABS: Alanine Aminotransferase 18 U/L (0-33); Albumin Level 3.4 g/dL (3.5-5.2); Alkaline Phosphatase 61 IU/L (35-105); Aspartate Amino Transferase 21 U/L (0-32); Blood Urea Nitrogen 11 mg/dL (6-20); Calcium 8.6 mg/dL (8.5-10.5); Carbon Dioxide 34 mmol/L (22-29); Chloride 117 mmol/L (98-107); Globulin 3.6 g/dL (1.3-4.6); Glomerular Filtration Rate 141.2 mL/min (90-130); Glucose 125 mg/dL (65-115); Osmolality Calculated 322 mOsm/kg (285-295); Sodium 157 mmol/L (136-145); Total Bilirubin 0.3 mg/dL (0.15-1.2)
[2019-05-27] MEDS: dextrose 5%-sod chloride 0.45% 1,000 ML 150 ML IV (08:02)
[2019-05-27] MEDS: famotidine 20 mg/2 mL INJ IVP ×2 (09:09→20:48)
[2019-05-27] MEDS: ALPRAZolam 0.5 mg Tablet PO ×2 (09:09→17:43)
[2019-05-27] MEDS: apixaban 5 mg Tablet PO ×2 (09:09→17:43)
[2019-05-27] MEDS: citalopram 20 mg Tablet 40 MG PO (09:09)
[2019-05-27 10:24] LABS: Magnesium 2.6 mg/dL (1.7-2.3)
--- NOTE | 2019-05-27 10:28 | PM.PN ---
Subjective Subjective: Interval history: She is nonverbal. Her guardian is at bedside. Reports that at home she sometimes coughs with food or drink. Here she did not observe her coughing particularly much. Patient makes eye contact. Does not answer questions. Did follow commands to take a deep breath. Vitals/I&O/Wt Last Vital Signs Temp 97.7 F 05/27/19 07:25 Pulse 136 H 05/27/19 08:36 Resp 24 H 05/27/19 08:34 BP 111/67 05/27/19 07:25 Pulse Ox 98 05/27/19 08:34 05/26/19 05/27/19 05/27/19 22:59 06:59 14:59 Intake Total 1170 / 1170 1030 / 2200 50 / 50 Balance 1170 / 1170 1030 / 2200 50 / 50 Weight last 48 hrs Weight 39.372 kg Weight 39.236 kg Weight 38.964 kg Weight 44.452 kg Physical Exam Const: COMMON NORMALS: no apparent distress; negative for oriented x3 OTHER: Quadriplegic HENMT: COMMON NORMALS: oropharynx normal Neck/C-Spine: COMMON NORMALS: no JVD Resp: COMMON NORMALS: normal respiratory effort AUSCULTATION: rhonchi Cardio: COMMON NORMALS: no JVD, regular rhythm, S1 normal heart sound, S2 normal heart sound and no murmurs RHYTHM: regular rhythm HEART SOUNDS: S1 normal and S2 normal GI: COMMON NORMALS: normal to inspection, nondistended, normoactive bowel sounds, soft to palpation and non-tender PALPATION: Yes soft Extremity: COMMON NORMALS: no joint enlargement and no pedal edema Neuro: COMMON NORMALS: negative for oriented x3 and negative for moves all extremities Skin: COMMON NORMALS: no rashes or lesions noted GENERAL SKIN EXAM: no rashes or lesions noted Data : 05/27/19 04:10 05/27/19 04:10 Micro: Microbiology 05/26/19 17:19 Blood Culture - Preliminary Blood SPECIMEN COLLECTED 05/26/19 17:14 Blood Culture - Preliminary Blood SPECIMEN COLLECTED A&P Assessment and plan (1) Acute dehydration: Dehydration has been improving, and her guardian reports that she had perked up with IV hydration. Status: Acute Code(s): E86.0 - Dehydration (2) Hypernatremia: Very slow improvement. Will change IV fluid to D5W. Monitor sodium. Status: Acute Code(s): E87.0 - Hyperosmolality and hypernatremia (3) Hypokalemia: Requested replacement. Check magnesium. Status: Acute Code(s): E87.6 - Hypokalemia (4) Aspiration pneumonia due to saliva: Discussed concern for recurrent aspiration with her guardian. Currently with bronchitis, possible pneumonia. Appears she does cough with food and drink at home. No som pneumonia seen on CT. She does have bronchitis with rhonchi which she is not able to expectorate as she does not remember to cough. Guardian states that if she is encouraged to cough at home, sometimes turns into retching/vomiting. Discussed concern regarding aspiration. She is going to have FEES today. We also touched base again regarding potential options with pleasure feeds versus NGT, versus PEG tube. Discussed that PEG tube may not be the best option given her chronic illness, as well as that aspiration may continue with oral, nasal secretions. Depending on swallow evaluation family will consider further options. Status: Acute Code(s): J69.0 - Pneumonitis due to inhalation of food and vomit (5) DVT (deep venous thrombosis): Duplex ultrasound negative for DVT. She reportedly was able to take medications this morning. Status: Acute Code(s): I82.409 - Acute embolism and thrombosis of unspecified deep veins of unspecified lower extremity Additional A&P Information Bacteremia: Recent bacteremia from actinobacter. Blood culture was repeated. So far no growth. Urinalysis not suggestive of UTI. Acinetobacter in 1 bottle purulence hospitalization. Not clear whether in fact infection, or skin contamination. Concern for possible aspiration, and aspiration pneumonia. For now empirically on Zosyn. CT chest abdomen pelvis with right hepatic lobe hemangioma, cholesterol cholelithiasis, no sign of acute infection. Discussed results with guardian. There is no tenderness no pain on abdominal examination including right upper quadrant. Continue chronic medications like citalopram cyclobenzaprine, Xanax at home dose. Attestations Medical Necessity Statement*: Continue admission for assessment of management of recurrent aspiration with bronchitis, concern for possible pneumonia. Coding Level of Care Code Acute Yeast Culture Operator for [facility] Fwd Exam Comprehensive Diagnoses Acute dehydration E86.0 Hypernatremia E87.0 Hypokalemia E87.6 Aspiration pneumonia due to saliva J69.0 DVT (deep venous thrombosis) I82.409
[2019-05-27] MEDS: potassium chloride premix 40 MEQ/100 ML PREMIX 25 MEQ IV ×2 (10:31→19:21)
[2019-05-27] MEDS: dextrose 5% 1,000 ML 150 ML IV ×2 (10:59→17:42)
[2019-05-27 13:18] LABS: Sodium 152 mmol/L (136-145)
[2019-05-27] MEDS: acetaminophen 325 mg Tablet PO (14:44)
[2019-05-27 15:02] LABS: Glucose Point of Care 166 mg/dL (70-110)
--- NOTE | 2019-05-27 15:26 | PC.CHAP ---
Pastoral Care Encounter/Spiritual Assessment Type of Contact [X] Declined artifacts conservator visit [] Patient/Family/Request visit [] Outpatient visit [] Follow-up visit [] Physician referral [] Code/Alert [] Routine visit [] Staff referral [] Actively dying [] Patient sleeping [] Family support [] [] Out of room [] Palliative care [] [] Receiving care in room [] Pre-surgical visit [] Trauma [] Long length of stay [] ICU visit [] Other: Relational/Emotional Strength [] Patient feels connected with others/family/visitors/staff [] Distress [] Loneliness/isolation [] Abandonment Spirituality of Patient [] Person of [place] [] Attends [facility] of their [place] [] Believes in Prayer [] Reads Bible or Zoroastrianism materials [] There are Spiritual issues to be addressed Non Linear Editor Interventions [] Prayer [] Active listening [] Non-anxious presence [] Spiritual/emotional support [] Crisis/trauma care [] Spiritual counseling [] Bereavement support [] Provided bereavement packet [] Provided Bible/devotional materials [] Provided toy/stuffed animal, coloring book to patient or family member [] Provided Communion [] Anointing/[place] [] Salvation [] Completed spiritual assessment [] Other: Impact on Illness or Injury [] Angry [] Fearful [] Anxious [] Often cries [] Exhaustion [] Unable to work [] Unable to attend pentecostalism [] Unable to walk/stand [] Unable to read [] Unable to drive [] Unable to eat/drink [] Unable to sleep [] Unable to be with family [] Patient intubated [] Other: Summary Time spent with patient
[2019-05-27 18:03] LABS: Anion Gap 9.2 (5-19); Blood Urea Nitrogen 6 mg/dL (6-20); Carbon Dioxide 29 mmol/L (22-29); Chloride 111 mmol/L (98-107); Glomerular Filtration Rate 182.7 mL/min (90-130); Glucose 187 mg/dL (65-115); Osmolality Calculated 303 mOsm/kg (285-295); Potassium 3.2 mmol/L (3.5-5.1); Sodium 146 mmol/L (136-145)
[2019-05-27 18:52] LABS: Amphetamines Screen Urine Negative (Negative); Barbiturates Screen Urine Negative (Negative); Benzodiazepines Screen Urine Positive (Negative); Cocaine Screen Urine Negative (Negative); Opiate Screen Urine Negative (Negative); PCP Screen Urine Negative (Negative); THC Screen Urine Negative (Negative)
[2019-05-27 19:03] LABS: Potassium, Radom Urine 83 mmol/L; Urine Random Chloride 162 mmol/L; Urine Random Sodium 132 mmol/L
[2019-05-27] MEDS: risperiDONE 1 mg Tablet 2 MG PO (20:49)
[2019-05-28] VITALS (14 sets, daily range): BP systolic 101–121; BP diastolic 64–76; PULSE 87–119; RESP 13–27; TEMP 36.3–36.8; O2SAT 94–100
[2019-05-28] MEDS: piperacillin-tazobactam 3.375 GM in sodium chloride 0.9% (plus) 50 ML IV ×3 (01:02→18:12)
[2019-05-28] MEDS: acetaminophen 325 mg Tablet PO (02:26)
[2019-05-28] MEDS: ipratropium-albuterol 3 mL Neb INHALATION ×4 (02:47→20:03)
[2019-05-28 05:14] LABS: Eosinophils # 0.2 10^3/uL (0.0-0.8); Eosinophils % 3.3 %; Hematocrit 31.8 % (37.0-47.0); Hemoglobin 9.1 g/dL (11.5-15.3); Lymphocytes # 1.7 10^3/uL (0.8-4.8); Lymphocytes % 26.4 %; Mean Corpuscular HGB Conc 28.6 g/dL (30.0-36.0); Mean Corpuscular Hemoglobin 25.8 pg (28.0-34.0); Mean Corpuscular Volume 90.1 fL (81-99); Mean Platelet Volume 12.5 fL (7.4-10.4); Monocytes # 0.4 10^3/uL (0.2-0.9); Monocytes % 6.7 %; Neutrophils % 63.3 %; Nucleated Red Blood Cells % 0 %; Platelet Count 133 10^3/cmm (130-400); Red Blood Count 3.53 10^6/uL (4.1-5.3); Red Cell Distribution Width 15.1 % (12.1-15.1); White Blood Count 6.3 10^3/uL (4.0-10.0)
[2019-05-28 05:40] LABS: Alanine Aminotransferase 14 U/L (0-33); Albumin Level 2.7 g/dL (3.5-5.2); Alkaline Phosphatase 50 IU/L (35-105); Anion Gap 11.5 (5-19); Aspartate Amino Transferase 16 U/L (0-32); Blood Urea Nitrogen 3 mg/dL (6-20); Calcium 8.5 mg/dL (8.5-10.5); Carbon Dioxide 25 mmol/L (22-29); Chloride 107 mmol/L (98-107); Creatinine Clr Calc Pharmacy 128.9932; Globulin 2.9 g/dL (1.3-4.6); Glomerular Filtration Rate 182.7 mL/min (90-130); Glucose 126 mg/dL (65-115); Osmolality Calculated 287 mOsm/kg (285-295); Potassium 3.5 mmol/L (3.5-5.1); Sodium 140 mmol/L (136-145); Total Bilirubin 0.3 mg/dL (0.15-1.2); Total Protein 5.6 g/dL (6.6-8.7)
[2019-05-28] MEDS: cyclobenzaprine 10 mg Tablet PO (06:47)
--- NOTE | 2019-05-28 08:15 | PC.NURSE ---
Orthostatic BP assessment positive. Patient assessed. Patient appears moderately lethargic and is trembling. Blood glucose and neurological status assessed. BG and neuro checks WNL. Dr. Snow notified. Physician to make medication adjustments.
[2019-05-28] MEDS: famotidine 20 mg/2 mL INJ IVP ×2 (08:35→21:22)
[2019-05-28] MEDS: apixaban 5 mg Tablet PO (08:36)
[2019-05-28] MEDS: ALPRAZolam 0.5 mg Tablet PO (08:36)
[2019-05-28] MEDS: citalopram 20 mg Tablet 40 MG PO (08:37)
--- NOTE | 2019-05-28 09:00 | PC.NURSE ---
patient turned and was dry
[2019-05-28] MEDS: dextrose 5% 1,000 ML 75 ML IV ×2 (09:17→15:37)
--- NOTE | 2019-05-28 09:21 | PC.NURSE ---
Patient noted to be choking on secretions. Patient hyperoxygenated with Nasal Cannula. Deep suctioning performed. O2 saturations maintained 98-100%. Patient recovered. Patient maintaining o2 sats on RA. Nurse to continue to monitor.
--- NOTE | 2019-05-28 09:26 | PC.NURSE ---
Dr. Minor notified of events Chest xray ordered for 1400 to monitor for possible aspirations.
--- NOTE | 2019-05-28 10:04 | P.PN_ITS ---
Subjective Subjective: Interval history: Per discussion with her guardian overnight was having trouble with discomfort/pain, although is not able to provide information regarding where she may be discomfort. Possibly due to prolonged stay in bed. Frequent repositioning was performed. This morning while receiving medications had some aspiration after which was suctioned, and was having some cough. With so far oxygenation remaining unchanged. Vitals/I&O/Wt Last Vital Signs Temp 97.5 F L 05/28/19 07:29 Pulse 115 H 05/28/19 07:29 Resp 21 H 05/28/19 07:29 BP 107/72 05/28/19 07:29 Pulse Ox 95 05/28/19 07:29 05/27/19 05/28/19 05/28/19 22:59 06:59 14:59 Intake Total 1050 / 1592.5 1050 / 2642.5 Balance 1050 / 1592.5 1050 / 2642.5 Weight last 48 hrs Weight 41.232 kg Weight 39.372 kg Weight 39.236 kg Weight 38.964 kg Weight 44.452 kg Physical Exam Const: COMMON NORMALS: negative for oriented x3 OTHER: Quadriplegia. Coughing, although cough not entirely effective. HENMT: COMMON NORMALS: oropharynx normal Neck/C-Spine: COMMON NORMALS: no JVD Resp: COMMON NORMALS: normal respiratory effort AUSCULTATION: rhonchi Cardio: COMMON NORMALS: no JVD, regular rhythm, S1 normal heart sound, S2 normal heart sound and no murmurs RHYTHM: regular rhythm HEART SOUNDS: S1 normal and S2 normal GI: COMMON NORMALS: normal to inspection, nondistended, normoactive bowel sounds, soft to palpation and non-tender PALPATION: Yes soft Extremity: COMMON NORMALS: no joint enlargement and no pedal edema Neuro: COMMON NORMALS: negative for oriented x3 and negative for moves all extremities Skin: COMMON NORMALS: no rashes or lesions noted GENERAL SKIN EXAM: no rashes or lesions noted Data : 05/28/19 04:50 05/28/19 04:50 Micro: Microbiology 05/26/19 16:14 Urine Culture - Final Urine,Clean Catch 05/26/19 17:19 Blood Culture - Preliminary Blood NEGATIVE TO DATE 05/26/19 17:14 Blood Culture - Preliminary Blood NEGATIVE TO DATE 05/26/19 21:20 MRSA Culture - Final Nose A&P Assessment and plan (1) Recurrent aspiration events: Could not perform FEES. On bedside evaluation did not do well. Discussed with guardian who had also discussed with other family, and decision was made to proceed with PEG tube. Hold Eliquis. Appreciate surgery asessment. At this time with again episode of aspiration this morning we will continue n.p.o. Status: Acute (2) Acute dehydration: Dehydration has been improving, and her guardian reports that she had perked up with IV hydration. Status: Acute Code(s): E86.0 - Dehydration (3) Hypernatremia: Slow improvement. D5W. Monitor sodium. Status: Acute Code(s): E87.0 - Hyperosmolality and hypernatremia (4) Hypokalemia: Requested replacement. Check magnesium. Status: Acute Code(s): E87.6 - Hypokalemia (5) Aspiration pneumonia due to saliva: Bronchitis. Concern for pneumonia, although not seen on CT. Repeat CXR later this afternoon due to recurrent episode of aspiration. Status: Acute Code(s): J69.0 - Pneumonitis due to inhalation of food and vomit (6) DVT (deep venous thrombosis): Duplex ultrasound negative for DVT. Hold Eliquis. Status: Acute Code(s): I82.409 - Acute embolism and thrombosis of unspecified deep veins of unspecified lower extremity Additional A&P Information Bacteremia: Recent bacteremia from actinobacter. Blood culture was repeated. So far no growth. Urinalysis not suggestive of UTI. Acinetobacter in 1 bottle purulence hospitalization. Not clear whether in fact infection, or skin contamination. Concern for possible aspiration, and aspiration pneumonia. For now empirically on Zosyn. CT chest abdomen pelvis with right hepatic lobe hemangioma, cholesterol chol elithiasis, no sign of acute infection. Discussed results with guardian. There is no tenderness no pain on abdominal examination including right upper quadrant. PO chronic medications like citalopram cyclobenzaprine, Xanax on hold. Attestations Medical Necessity Statement*: Continue admission for assessment and managemetn of dysphagia, high risk of aspiration. Coding Level of Care Code Acute Molasses And Caramel Operator for [facility] Diagnoses Recurrent aspiration events Acute dehydration E86.0 Hypernatremia E87.0 Hypokalemia E87.6 Aspiration pneumonia due to saliva J69.0 DVT (deep venous thrombosis) I82.409
--- NOTE | 2019-05-28 10:38 | PM.CONSULT ---
Providers/Reason For Consult Consulting Physican/Specialty*: General Surgery Tomasz Finney MD Reason for Consult*: Requesting PEG tube placement for dysphagia/aspiration. Attending Physician: Ash Minor Primary Care Provider: Vicente Rincon MD History of Present Illness History of Present Illness Myrna Cano is a 33 year old female recently admitted for poor oral intake and apparent dysphagia/aspiration. She has a history of cerebral palsy and apparently her swallowing has been quite a bit more problematic over the past several weeks. The family/guardian has been counseled regarding a possible feeding tube placement and they have decided that they want to proceed. The patient is currently n.p.o. as she tends to aspirate every time she tries to swallow something. Review of Systems Narrative: The patient is nonverbal. Unable to obtain from the patient due to her medical condition. Meds/Allergies Home Medications and Allergies Home Medications Medication Instructions Recorded Confirmed Type Eliquis 5 mg PO BID 05/13/19 05/26/19 History alprazolam [Xanax] 0.5 mg PO BID 05/13/19 05/26/19 History citalopram 40 mg PO DAILY 05/13/19 05/26/19 History cyclobenzaprine 10 mg PO TID PRN 05/13/19 05/26/19 History cefdinir 300 mg PO Q12H 10 Days #20 cap 05/18/19 05/26/19 Rx metronidazole [Flagyl] 500 mg PO Q8H 10 Days #30 tab 05/18/19 05/26/19 Rx nystatin 500,000 unit PO QID #1 unit 05/18/19 05/26/19 Rx acetaminophen [Tylenol] 325 mg PO PRN 05/26/19 05/26/19 History diphenhydramine HCl [Benadryl] 50 mg PO DAILY PRN 05/26/19 05/26/19 History norgestimate-ethinyl estradiol 1 tab PO DAILY 05/26/19 05/26/19 History [Tri-Sprintec (28)] risperidone See Rx Instructions .ROUTE .COMPLEX 05/26/19 05/26/19 History Allergies Allergy/AdvReac Type Severity Reaction Status Date / Time No Known Allergies Allergy Verified 05/15/19 15:05 Current Medications Current Medications Generic Name Dose Route Start Last Admin Trade Name Freq PRN Reason Stop Dose Admin Acetaminophen 325 mg 05/26/19 19:15 05/28/19 02:26 Tylenol PO 325 mg PRN LYRIC Administration Albuterol/Ipratropium 3 ml 05/26/19 21:00 05/28/19 08:43 Duoneb INHALATION 3 ml Q6H.RESPIRATORY LYRIC Administration Alprazolam 0.5 mg 05/27/19 09:00 05/28/19 08:36 Xanax PO 0.5 mg BID LYRIC Administration Apixaban 5 mg 05/27/19 09:00 05/28/19 08:36 Eliquis PO 5 mg BID LYRIC Administration Citalopram Hydrobromide 40 mg 05/27/19 09:00 05/28/19 08:37 Celexa PO 40 mg DAILY LYIRC Administration Cyclobenzaprine HCl 10 mg 05/26/19 19:15 05/28/19 06:47 Flexeril PO 10 mg TID PRN Administration unknown Famotidine 20 mg 05/26/19 20:43 05/28/19 08:35 Pepcid Inj IVP 20 mg Q12H LYRIC Administration Piperacillin Sod/Tazobactam 50 mls @ 12.5 mls/hr 05/26/19 17:30 05/28/19 08:42 Sod 3.375 gm/ Sodium Chloride IV 12.5 mls/hr Q8H LYRIC Administration Protocol Dextrose 1,000 mls @ 75 mls/hr 05/27/19 11:00 05/28/19 09:17 D5w IV 75 mls/hr .[id number] LYRIC Administration Nystatin 500,000 unit 05/26/19 21:00 05/28/19 08:45 Nystatin PO Not Given QID LYRIC Risperidone 1 mg 05/27/19 06:00 05/28/19 07:13 Risperdal PO Not Given QAM LYRIC Risperidone 2 mg 05/26/19 21:00 05/27/19 20:49 Risperdal PO 2 mg BEDTIME LYRIC Administration PFSH Acute PFSH: Medical History (Updated 05/28/19 @ 10:48 by Tomasz Finney MD) Cerebral palsy DVT (deep venous thrombosis) Quadriplegia Spastic quadriplegia Surgical History (Updated 05/28/19 @ 10:46 by Tomasz Finney MD) History of contracture of joint Bilateral lower extremity surgery for releases at hips/knees/ankles History of oral surgery [place] teeth extraction Social History Smoking and tobacco status: never smoked Alcohol intake: never Lives independently: No Household members: family and caregiver Housing: House Female Reproductive History: Date of last menstrual period: 05/21/19 Vitals/I&O/Wt Last Vital Signs Temp 97.5 F L 05/28/19 07:29 Pulse 87 05/28/19 08:40 Resp 16 05/28/19 08:40 BP 107/72 05/28/19 07:29 Pulse Ox 96 05/28/19 08:40 05/27/19 05/28/19 05/28/19 22:59 06:59 14:59 Intake Total 1050 / 1592.5 1050 / 2642.5 Balance 1050 / 1592.5 1050 / 2642.5 Weight last 48 hrs Weight 90 lb 14.4 oz Weight 86 lb 12.8 oz Weight 86 lb 8 oz Weight 85 lb 14.4 oz Weight 98 lb Physical Exam Narrative: EXAM NARRATIVE: The patient was encountered in her hospital room in the presence of her guardian/cousin, Rosita. The patient does not appear to be in any distress. The pupils seem equal. No carotid bruits are heard. The lungs seem clear anteriorly. The heart is regular. The abdomen reveals bowel sounds and is very mildly protuberant. The extremities are thin and reveal no edema. Data Micro: Micro: Microbiology 05/26/19 16:14 Urine Culture - Fi nal Urine,Clean Catch 05/26/19 17:19 Blood Culture - Pr eliminary Blood NEGATIVE TO EVENS E 05/26/19 17:14 Blood Culture - Pr eliminary Blood NEGATIVE TO EVENS E 05/26/19 21:20 MRSA Culture - Fin al Nose A&P Assessment and plan (1) Dysphagia: It sounds like this has become a worsening problem over the past 3 weeks. I discussed feeding tube placement with the patient and her guardian. I have reviewed the patient's CAT scans and my only concern is given her scoliosis/anatomy, there appears to be a fairly limited area of stomach that may protrude below the costal margin. I suspect a PEG tube will be possible, but I made the guardian aware that laparoscopy may be needed to complete the procedure safely. Risks of bleeding, infection, internal organ injury, chances of an open procedure, etc. were all discussed. They seem to understand and would like to proceed with an attempted PEG tube placement tomorrow. The patient's Eliquis is currently on hold. I will make arrangements for an attempted PEG tube placement tomorrow morning in the operating room. Status: Acute Code(s): R13.10 - Dysphagia, unspecified (2) Aspiration pneumonia due to saliva: As above. Status: Acute Code(s): J69.0 - Pneumonitis due to inhalation of food and vomit Consult Attestations Medical Necessity Statement: See admitting service's notation. Coding Level of Care Code Acute Credit Card Analyst for [facility] Diagnoses Dysphagia R13.10 Aspiration pneumonia due to saliva J69.0
[2019-05-28] MEDS: morphine 4 mg/mL SDV 1 mL 2 MG IVP ×3 (11:12→21:37)
--- NOTE | 2019-05-28 14:00 | XR_ITS ---
WS: [id number] XR chest 1V portable [id number] REASON FOR EXAM: POSSIBLE ASPIRATION FINDINGS: The heart and mediastinal interfaces were normal. Lung torre are clear there is no alveola r infiltrates, pneumonia, pulmonary edema, pleural effusion, or mass effect. No evidence of aspiratio n changes. The hilum is and apices normal Rotation is seen with scoliosis to the left. XR/XR chest 1V portable [id number] IMPRESSION: Negative chest for active pathology. No evidence of aspiration on this study.
[2019-05-28] MEDS: lidocaine 5% Patch 1 PATCH TOPICAL (21:38)
--- NOTE | 2019-05-28 21:38 | PC.NURSE ---
wasted 2 mg morphine
--- NOTE | 2019-05-28 21:52 | PC.NURSE ---
lidocaine placed on lower back at 21:00 med pass, comes off 05/29/19 @ 9:00
[2019-05-28] MEDS: LORazepam 2 mg/mL INJ 1 mL 0.5 MG IVP (23:46)
[2019-05-29] VITALS (20 sets, daily range): BP systolic 96–116; BP diastolic 59–97; PULSE 109–130; RESP 15–28; TEMP 36.2–37.1; O2SAT 96–100; BMI 20.3
[2019-05-29] MEDS: piperacillin-tazobactam 3.375 GM in sodium chloride 0.9% (plus) 50 ML IV ×3 (02:07→20:58)
[2019-05-29] MEDS: ipratropium-albuterol 3 mL Neb INHALATION ×4 (02:29→20:18)
--- NOTE | 2019-05-29 02:54 | PC.NURSE ---
Addendum entered by Zora Gracia RN 05/29/19 02:56: NOTICED THAT THE PATIENT HAD SOME CREAM ON HER BOTTOM FIRST CHANGE TONIGHT AND THAT THERE WAS SLIGHT REDDENING TO HER ANAL CREVICE, SO APPLIED A HEALTHY DOSE OF ALOE VESTA TONIGHT. Original Note: PATIENT TURNED AND CHANGED @ 2:00
[2019-05-29 04:05] LABS: Basophils % 0.2 %; Eosinophils # 0.2 10^3/uL (0.0-0.8); Eosinophils % 3.7 %; Hematocrit 32.4 % (37.0-47.0); Hemoglobin 9.7 g/dL (11.5-15.3); Lymphocytes # 1.9 10^3/uL (0.8-4.8); Lymphocytes % 31.1 %; Mean Corpuscular HGB Conc 29.9 g/dL (30.0-36.0); Mean Corpuscular Hemoglobin 26.4 pg (28.0-34.0); Mean Platelet Volume 13.6 fL (7.4-10.4); Monocytes # 0.5 10^3/uL (0.2-0.9); Monocytes % 7.3 %; Neutrophils # 3.5 10^3/uL (1.8-7.7); Neutrophils % 57.2 %; Nucleated Red Blood Cells % 0 %; Platelet Count 150 10^3/cmm (130-400); Red Blood Count 3.68 10^6/uL (4.1-5.3); Red Cell Distribution Width 14.3 % (12.1-15.1); White Blood Count 6.2 10^3/uL (4.0-10.0)
[2019-05-29 04:27] LABS: Alanine Aminotransferase 18 U/L (0-33); Albumin Level 3.1 g/dL (3.5-5.2); Alkaline Phosphatase 60 IU/L (35-105); Anion Gap 14.1 (5-19); Aspartate Amino Transferase 22 U/L (0-32); Blood Urea Nitrogen 2 mg/dL (6-20); Calcium 8.9 mg/dL (8.5-10.5); Carbon Dioxide 26 mmol/L (22-29); Chloride 102 mmol/L (98-107); Creatinine Clr Calc Pharmacy 128.9932; Globulin 2.8 g/dL (1.3-4.6); Glomerular Filtration Rate 182.7 mL/min (90-130); Glucose 118 mg/dL (65-115); Osmolality Calculated 285 mOsm/kg (285-295); Potassium 3.1 mmol/L (3.5-5.1); Sodium 139 mmol/L (136-145); Total Bilirubin 0.2 mg/dL (0.15-1.2); Total Protein 5.9 g/dL (6.6-8.7)
[2019-05-29] MEDS: dextrose 5% 1,000 ML 75 ML IV ×2 (06:05→20:34)
--- NOTE | 2019-05-29 06:35 | PC.NURSE ---
patient turned and changed
[2019-05-29] MEDS: famotidine 20 mg/2 mL INJ IVP ×2 (08:09→19:33)
[2019-05-29] MEDS: lidocaine 5% Patch 1 PATCH TOPICAL ×2 (08:15→21:11)
[2019-05-29] MEDS: sodium chloride 0.9% 500 ML 999 ML IV (10:06)
--- NOTE | 2019-05-29 10:06 | PC.SOCIAL ---
IMM Update. Pg 2 of IMM given and explained to patient's cousin Rosita at bedside. Copy provided and copy in chart updated.
--- NOTE | 2019-05-29 10:18 | W.PM.OPSUD ---
Surgery/Procedure H&P Update DATE OF PROCEDURE: May 29, 2019 DATE H&P PERFORMED: 05/28/19 H&P UPDATE INFORMATION: No changes to prior documentation PLANNED PROCEDURE: Operation Date: 05/29/19 10:25 Proposed Procedures p PEG Tube Insertion(Not Applicable) - Tomasz Finney MD
--- NOTE | 2019-05-29 10:20 | P.ANESASSM_ITS ---
Pre-Anesthetic Assessment Pre-Anesthetic Assessment: Height/Weight: Height 1.42 m Weight 41.232 kg Temp Pulse Resp BP Pulse Ox 97.8 F 130 H 20 H 104/74 99 05/29/19 09:51 05/29/19 09:51 05/29/19 09:51 05/29/19 09:51 05/29/19 09:51 Preop Diagnosis: aspriation Proposed Procedure: Operation Date: 05/29/19 10:25 Proposed Procedures p PEG Tube Insertion(Not Applicable) - Tomasz Finney MD Familial anesthetic complications: None Was Beta Jens taken within 24 hours: N/A Last intake: Intake NPO > 8 hrs (yesterday morning) Last Liquid Date 05/28/19 Last Liquid Time 08:00 Last Solid Date 05/25/19 Last Solid Time 08:00 Social: Social History: No alcohol and No tobacco Exam: Pre-Anes Outpt Exam: alert, oriented x 3, clear to auscultation bilaterally and regular rate & rhythm Airway: Cervical ROM: WNL Additional comments: grounded her teeth all off unable to to participate with with MP Patient has been chronically aspirating her own upper airway secretions Pulmonary: Pulmonary: None reported Comments: aspiration pneumonia 2 weeks ago CV/HEM: CV/HEM: DVT : : None reported Hepatic: Hepatic: None reported GI: Comments: recurrent aspiration w/ pneumonia 2 weeks ago Metabolic: Metabolic: None reported Musc/skel: Comments: cerebral palsy w/ spastic quadriplegia - avoid succinylcholine Neuropsych: Neuropsych: None reported Anesthetic Plan: ASA status: 3 Anesthesia: MAC Risk of > 500 ml blood loss (7ml/kg in children): No Meds/Allergies Current Medications: Current Medications Generic Name Dose Route Start Last Admin Trade Name Freq PRN Reason Stop Dose Admin Albuterol/Ipratrop ium 3 ml 05/26/19 21:00 05/29/19 09:25 Duoneb INHALATION 3 ml Q6H.RESPIRATORY S CH Administration Alprazolam 0.5 mg 05/27/19 09:00 05/29/19 08:15 Xanax PO Not Given BID LYRIC Apixaban 5 mg 05/27/19 09:00 05/28/19 08:36 Eliquis PO 5 mg BID LYRIC Administration Citalopram Hydrobr omide 40 mg 05/27/19 09:00 05/29/19 08:15 Celexa PO Not Given DAILY LYRIC Cyclobenzaprine HC l 10 mg 05/26/19 19:15 05/28/19 06:47 Flexeril PO 10 mg TID PRN Administration unknown Famotidine 20 mg 05/26/19 20:43 05/29/19 08:09 Pepcid Inj IVP 20 mg Q12H LYRIC Administration Piperacillin Sod/T azobactam 50 mls @ 12.5 mls /hr 05/26/19 17:30 05/29/19 07:00 Sod 3.375 gm/ So dium Chloride IV Infused Q8H LYRIC Infusion Protocol Dextrose 1,000 mls @ 75 ml s/hr 05/27/19 11:00 05/29/19 06:05 D5w IV 75 mls/hr .[id number] LYRIC Administration Sodium Chloride 500 mls @ 999 mls /hr 05/29/19 09:43 05/29/19 10:06 Sodium Chloride 0.9% IV 999 mls/hr .Q31M PRN Administration HYPOTENSION Lidocaine 1 patch 05/28/19 21:00 05/29/19 08:15 Lidoderm 5% Patc h TOPICAL 1 patch [id number] LYRIC Administration Lorazepam 0.5 mg 05/28/19 18:37 05/28/19 23:46 Ativan IVP 0.5 mg Q4H PRN Administration ANXIETY Morphine Sulfate 2 mg 05/28/19 10:03 05/28/19 21:37 Morphine IVP 2 mg Q4H PRN Administration SEVERE PAIN Nystatin 500,000 unit 05/26/19 21:00 05/29/19 08:16 Nystatin PO Not Given QID LYRIC Risperidone 1 mg 05/27/19 06:00 05/28/19 22:33 Risperdal PO Not Given QAM LYRIC Risperidone 2 mg 05/26/19 21:00 05/28/19 20:02 Risperdal PO Not Given BEDTIME LYRIC PFSH Anesthesia PFSH: Medical History (Updated 05/28/19 @ 10:48 by Tomasz Finney MD) Cerebral palsy DVT (deep venous thrombosis) Quadriplegia Spastic quadriplegia Surgical History (Updated 05/28/19 @ 10:46 by Tomasz Finney MD) History of contracture of joint Bilateral lower extremity surgery for releases at hips/knees/ankles History of oral surgery [place] teeth extraction Social History Smoking and tobacco status: never smoked Alcohol intake: never Lives independently: No Household members: family and caregiver Housing: House Female Reproductive History: Date of last menstrual period: 05/21/19 Data Anesthesia CBC & Chem 7: 05/29/19 03:25 05/29/19 03:25 Other Labs: Laboratory Results - last 48 hr 05/27/19 05/27/19 05/27/19 04:10 12:40 14:45 WBC RBC Hgb Hct MCV MCH MCHC RDW Plt Count MPV Neut % (Auto) Lymph % (Auto) [place] % (Auto) Eos % (Auto) Baso % (Auto) Neut # (Auto) Lymph # (Auto) [place] # (Auto) Eos # (Auto) Baso # (Auto) Nucleated RBC % (auto) Nucleated RBCs # Sodium 152 H Potassium Chloride Carbon Dioxide Anion Gap BUN Creatinine GFR Calculation Glucose POC Glucose 166 Calculated Osmolality Calcium Magnesium 2.6 H Total Bilirubin AST ALT Alkaline Phosphatase Total Protein Albumin Globulin Ur Random Sodium Ur Random Potassium Ur Random Chloride Urine Opiates Screen Ur Barbiturates Screen Ur Phencyclidine Scrn Ur Amphetamines Screen U Benzodiazepines Scrn Urine Cocaine Screen U Marijuana (THC) Screen 05/27/19 05/27/19 05/28/19 17:17 18:28 04:50 WBC 6.3 RBC 3.53 L Hgb 9.1 L Hct 31.8 L MCV 90.1 MCH 25.8 L MCHC 28.6 L RDW 15.1 Plt Count 133 MPV 12.5 H Neut % (Auto) 63.3 Lymph % (Auto) 26.4 [place] % (Auto) 6.7 Eos % (Auto) 3.3 Baso % (Auto) 0.0 Neut # (Auto) 4.0 Lymph # (Auto) 1.7 [place] # (Auto) 0.4 Eos # (Auto) 0.2 Baso # (Auto) 0.0 Nucleated RBC % (auto) 0 Nucleated RBCs # 0.0 Sodium 146 H Potassium 3.2 L Chloride 111 H Carbon Dioxide 29 Anion Gap 9.2 BUN 6 Creatinine 0.4 L GFR Calculation 182.7 H Glucose 187 H POC Glucose Calculated Osmolality 303 H Calcium 8.0 L Magnesium Total Bilirubin AST ALT Alkaline Phosphatase Total Protein Albumin Globulin Ur Random Sodium 132 Ur Random Potassium 83 Ur Random Chloride 162 Urine Opiates Screen Negative Ur Barbiturates Screen Negative Ur Phencyclidine Scrn Negative Ur Amphetamines Screen Negative U Benzodiazepines Scrn Positive H Urine Cocaine Screen Negative U Marijuana (THC) Screen Negative 05/28/19 05/29/19 05/29/19 04:50 03:25 03:25 WBC 6.2 RBC 3.68 L Hgb 9.7 L Hct 32.4 L MCV 88.0 MCH 26.4 L MCHC 29.9 L RDW 14.3 Plt Count 150 MPV 13.6 H Neut % (Auto) 57.2 Lymph % (Auto) 31.1 [place] % (Auto) 7.3 Eos % (Auto) 3.7 Baso % (Auto) 0.2 Neut # (Auto) 3.5 Lymph # (Auto) 1.9 [place] # (Auto) 0.5 Eos # (Auto) 0.2 Baso # (Auto) 0.0 Nucleated RBC % (auto) 0 Nucleated RBCs # 0.0 Sodium 140 139 Potassium 3.5 3.1 L Chloride 107 102 Carbon Dioxide 25 26 Anion Gap 11.5 14.1 BUN 3 L 2 L Creatinine 0.4 L 0.4 L GFR Calculation 182.7 H 182.7 H Glucose 126 H 118 H POC Glucose Calculated Osmolality 287 285 Calcium 8.5 8.9 Magnesium Total Bilirubin 0.3 0.2 AST 16 22 ALT 14 18 Alkaline Phosphatase 50 60 Total Protein 5.6 L 5.9 L Albumin 2.7 L 3.1 L Globulin 2.9 2.8 Ur Random Sodium Ur Random Potassium Ur Random Chloride Urine Opiates Screen Ur Barbiturates Screen Ur Phencyclidine Scrn Ur Amphetamines Screen U Benzodiazepines Scrn Urine Cocaine Screen U Marijuana (THC) Screen Micro: Microbiology 05/28/19 11:00 C.difficile Toxin B Gene (PCR) - Final Stool 05/26/19 16:14 Urine Culture - Final Urine,Clean Catch Cardiac Studies: No Data to Display
--- NOTE | 2019-05-29 11:03 | SUR.OPER ---
4ML 1% LIDOCAINE USED FROM KIT. PEG TUBE SITE COVERED WITH DRAIN SPONGE, 4X4'S AND PAPER TAPE
--- NOTE | 2019-05-29 11:39 | PC.NURSE ---
Zosyn administration time adjusted per Dr. Minor as morning dose was not administered because patient off the floor to surgery.
[2019-05-29] MEDS: morphine 4 mg/mL SDV 1 mL 2 MG IVP ×2 (14:15→19:33)
[2019-05-29] MEDS: apixaban 5 mg Tablet PO (17:05)
[2019-05-29] MEDS: ALPRAZolam 0.5 mg Tablet PO (17:05)
[2019-05-29] MEDS: risperiDONE 1 mg Tablet 2 MG PO (20:37)
[2019-05-29] MEDS: nystatin 100,000 unit/mL UDC 5 mL 500000 UNIT PO (20:38)
--- NOTE | 2019-05-29 20:45 | P.PN_ITS ---
Subjective Subjective: Interval history: Appears her night was not as restless last night. This morning she is awake. Does not appear in distress. She is chronically nonverbal. Vitals/I&O/Wt Last Vital Signs Temp 98.7 F 05/29/19 19:19 Pulse 119 H 05/29/19 20:19 Resp 20 H 05/29/19 20:19 BP 115/73 05/29/19 19:19 Pulse Ox 100 05/29/19 20:19 05/29/19 05/29/19 05/29/19 06:59 14:59 22:59 Intake Total 1000 / 1575 392.083 / 392.083 822.25 / 1214.333 Output Total 0 / 0 Balance 1000 / 1575 392.083 / 392.083 822.25 / 1214.333 Weight last 48 hrs Weight 41.232 kg Weight 41.232 kg Physical Exam Const: COMMON NORMALS: negative for oriented x3 OTHER: Quadriplegia. Alert. Comfortable. HENMT: COMMON NORMALS: oropharynx normal Neck/C-Spine: COMMON NORMALS: no JVD Resp: COMMON NORMALS: normal respiratory effort AUSCULTATION: no rhonchi Cardio: COMMON NORMALS: no JVD, regular rhythm, S1 normal heart sound, S2 normal heart sound and no murmurs RHYTHM: regular rhythm HEART SOUNDS: S1 normal and S2 normal GI: COMMON NORMALS: normal to inspection, nondistended, normoactive bowel sounds, soft to palpation and non-tender PALPATION: Yes soft Extremity: COMMON NORMALS: no joint enlargement and no pedal edema Neuro: COMMON NORMALS: negative for oriented x3 and negative for moves all extremities Skin: COMMON NORMALS: no rashes or lesions noted GENERAL SKIN EXAM: no rashes or lesions noted Data : 05/29/19 03:25 05/29/19 03:25 A&P Assessment and plan (1) Recurrent aspiration events: PEG tube placed today. Dietary consultation. Tonight was allowed to resume her medications. Discharge planning regarding tube feeds at home. Otherwise nothing by mouth. Aspiration precautions. Pulmonary toilet. Status: Acute (2) Acute dehydration: Dehydration has been improving, and her guardian reports that she had perked up with IV hydration. Status: Acute Code(s): E86.0 - Dehydration (3) Hypernatremia: Slow improvement. D5W. Monitor sodium. Status: Acute Code(s): E87.0 - Hyperosmolality and hypernatremia (4) Hypokalemia: Requested replacement. Status: Acute Code(s): E87.6 - Hypokalemia (5) Aspiration pneumonia due to saliva: Bronchitis. Concern for pneumonia, although not seen on CT. Repeat CXR later this afternoon due to recurrent episode of aspiration. Status: Acute Code(s): J69.0 - Pneumonitis due to inhalation of food and vomit (6) DVT (deep venous thrombosis): Duplex ultrasound negative for DVT. Resume Eliquis when okay by surgery. Status: Acute Code(s): I82.409 - Acute embolism and thrombosis of unspecified deep veins of unspecified lower extremity Additional A&P Information Bacteremia: Recent bacteremia from actinobacter. Blood culture was repeated. So far no growth. Urinalysis not suggestive of UTI. Acinetobacter in 1 bottle purulence hospitalization. Not clear whether in fact infection, or skin contamination. Concern for aspiration, and aspiration pneumonia. For now empirically on Zosyn. CT chest abdomen pelvis with right hepatic lobe hemangioma, cholesterol cholelithiasis, no sign of acute infection. Discussed results with guardian. There is no tenderness no pain on abdominal examination including right upper quadrant. PO chronic medications like citalopram cyclobenzaprine, Xanax on hold. Attestations Medical Necessity Statement*: Continue admission for assessment of management of recurrent aspiration, bronchitis, PEG tube placement. Coding Level of Care Code Acute Recovery Engineer for [facility] Fwd Diagnoses Recurrent aspiration events Acute dehydration E86.0 Hypernatremia E87.0 Hypokalemia E87.6 Aspiration pneumonia due to saliva J69.0 DVT (deep venous thrombosis) I82.409
[2019-05-30] VITALS (16 sets, daily range): BP systolic 100–118; BP diastolic 58–90; PULSE 93–122; RESP 12–30; TEMP 36.3–36.8; O2SAT 93–99
[2019-05-30] MEDS: morphine 4 mg/mL SDV 1 mL 2 MG IVP (00:29)
[2019-05-30] MEDS: ipratropium-albuterol 3 mL Neb INHALATION ×4 (03:01→21:30)
[2019-05-30] MEDS: piperacillin-tazobactam 3.375 GM in sodium chloride 0.9% (plus) 50 ML IV ×3 (03:22→20:29)
[2019-05-30 03:51] LABS: Basophils % 0.1 %; Eosinophils # 0.2 10^3/uL (0.0-0.8); Eosinophils % 3.5 %; Hematocrit 36.2 % (37.0-47.0); Hemoglobin 10.7 g/dL (11.5-15.3); Lymphocytes # 1.8 10^3/uL (0.8-4.8); Mean Corpuscular HGB Conc 29.6 g/dL (30.0-36.0); Mean Corpuscular Volume 87.9 fL (81-99); Monocytes # 0.5 10^3/uL (0.2-0.9); Monocytes % 7.2 %; Neutrophils # 4.2 10^3/uL (1.8-7.7); Neutrophils % 61.9 %; Nucleated Red Blood Cells % 0 %; Platelet Count 167 10^3/cmm (130-400); Red Blood Count 4.12 10^6/uL (4.1-5.3); Red Cell Distribution Width 14.4 % (12.1-15.1); White Blood Count 6.8 10^3/uL (4.0-10.0)
[2019-05-30 03:57] LABS: Alanine Aminotransferase 16 U/L (0-33); Albumin Level 3.2 g/dL (3.5-5.2); Alkaline Phosphatase 70 IU/L (35-105); Anion Gap 14.1 (5-19); Aspartate Amino Transferase 15 U/L (0-32); Calcium 9.3 mg/dL (8.5-10.5); Carbon Dioxide 27 mmol/L (22-29); Chloride 101 mmol/L (98-107); Globulin 3.2 g/dL (1.3-4.6); Glomerular Filtration Rate 182.7 mL/min (90-130); Glucose 116 mg/dL (65-115); Potassium 3.1 mmol/L (3.5-5.1); Sodium 139 mmol/L (136-145); Total Bilirubin 0.3 mg/dL (0.15-1.2); Total Protein 6.4 g/dL (6.6-8.7)
[2019-05-30 04:01] LABS: Blood Urea Nitrogen 1 mg/dL (6-20); Osmolality Calculated 284 mOsm/kg (285-295)
[2019-05-30] MEDS: risperiDONE 1 mg Tablet PO (05:53)
--- NOTE | 2019-05-30 06:30 | PC.NURSE ---
PEG TUBE DRESSING IS C/D/I. PT MEDS WERE PUSHED THROUGH PEG TUBE AND FLUSHED. ASPIRATED Q4H. WILL CONTINUE TO MONITOR.
--- NOTE | 2019-05-30 08:13 | ANE.PACU2 ---
 Inpatient post-anesthesia follow up: Airway intact: Yes Vital signs: Temperature 98.2 F Pulse Rate [Monito r] 159 Pulse Rate 118 Respiratory Rate 20 Blood Pressure [Ri ght Arm] 118/89 Blood Pressure 118/90 Pulse Oximetry 99 Oxygen Delivery Me thod Room Air Oxygen Flow Rate Fraction of Inspir ed Oxygen 21 Hydration adequate: Yes Nausea and vomiting: No Mental status: Baseline
[2019-05-30] MEDS: famotidine 20 mg/2 mL INJ IVP ×2 (09:05→20:01)
[2019-05-30] MEDS: apixaban 5 mg Tablet PO ×2 (09:05→17:19)
[2019-05-30] MEDS: citalopram 20 mg Tablet 40 MG PO (09:05)
[2019-05-30] MEDS: ALPRAZolam 0.5 mg Tablet PO ×2 (09:05→17:19)
[2019-05-30] MEDS: dextrose 5% 1,000 ML 75 ML IV ×2 (10:00→22:57)
--- NOTE | 2019-05-30 13:14 | P.PN_ITS ---
Subjective Subjective: Interval history: Awake, alert. Appears comfortable, smiling. Guardian at bedside. Vitals/I&O/Wt Last Vital Signs Temp 97.4 F L 05/30/19 11:00 Pulse 115 H 05/30/19 11:00 Resp 30 H 05/30/19 11:00 BP 100/58 05/30/19 11:00 Pulse Ox 99 05/30/19 11:00 05/29/19 05/30/19 05/30/19 22:59 06:59 14:59 Intake Total 822.25 / 1214.333 50 / 4275.686 4122 / 1050 Balance 822.25 / 1214.333 50 / 0102.329 9582 / 1050 Weight last 48 hrs Weight 39.871 kg Weight 41.232 kg Physical Exam Const: COMMON NORMALS: negative for oriented x3 OTHER: Quadriplegia. Alert. Comfortable. Neck/C-Spine: COMMON NORMALS: no JVD Resp: COMMON NORMALS: normal respiratory effort AUSCULTATION: no rhonchi Cardio: COMMON NORMALS: no JVD, regular rhythm, S1 normal heart sound, S2 normal heart sound and no murmurs RHYTHM: regular rhythm HEART SOUNDS: S1 normal and S2 normal GI: COMMON NORMALS: normal to inspection, nondistended, normoactive bowel sounds, soft to palpation and non-tender PALPATION: Yes soft OTHER: PEG tube in place, appears clean. Extremity: COMMON NORMALS: no joint enlargement and no pedal edema Neuro: COMMON NORMALS: negative for oriented x3 and negative for moves all extremities Skin: COMMON NORMALS: no rashes or lesions noted GENERAL SKIN EXAM: no rashes or lesions noted Data : 05/30/19 03:20 05/30/19 03:20 A&P Assessment and plan (1) Recurrent aspiration events: PEG tube placed. Dietary consultation for tube feeds. Family prefer bolus vs continuous feeds. Resume her medications. Discharge planning regarding tube feeds at home. Otherwise nothing by mouth. Aspiration precautions. Pulmonary toilet. Status: Acute (2) Acute dehydration: Dehydration has been improving, and her guardian reports that she had perked up with IV hydration. Status: Acute Code(s): E86.0 - Dehydration (3) Hypernatremia: Slow improvement. D5W. Monitor sodium. Status: Acute Code(s): E87.0 - Hyperosmolality and hypernatremia (4) Hypokalemia: Requested replacement. Status: Acute Code(s): E87.6 - Hypokalemia (5) Aspiration pneumonia due to saliva: Bronchitis. Concern for pneumonia, although not seen on CT. Repeat CXR later this afternoon due to recurrent episode of aspiration. Status: Acute Code(s): J69.0 - Pneumonitis due to inhalation of food and vomit (6) DVT (deep venous thrombosis): Duplex ultrasound negative for DVT. Resume Eliquis when okay by surgery. Status: Acute Code(s): I82.409 - Acute embolism and thrombosis of unspecified deep veins of unspecified lower extremity Additional A&P Information Bacteremia: Recent bacteremia from actinobacter. Blood culture was repeated. So far no growth. Urinalysis not suggestive of UTI. Acinetobacter in 1 bottle purulence hospitalization. Not clear whether in fact infection, or skin contamination. Concern for aspiration, and aspiration pneumonia. For now empirically on Zosyn. CT chest abdomen pelvis with right hepatic lobe hemangioma, cholesterol cholelithiasis, no sign of acute infection. Discussed results with guardian. T here is no tenderness no pain on abdominal examination including right upper quadrant. PO chronic medications like citalopram cyclobenzaprine, Xanax on hold. Attestations Medical Necessity Statement*: Continuation versus management of recurrent aspiration, status post PEG tube placement, initiation of tube feeds and discharge planning. Coding Level of Care Code Acute Portrait Painter for Chg Fwd Diagnoses Recurrent aspiration events Acute dehydration E86.0 Hypernatremia E87.0 Hypokalemia E87.6 Aspiration pneumonia due to saliva J69.0 DVT (deep venous thrombosis) I82.409
[2019-05-30] MEDS: nystatin 100,000 unit/mL UDC 5 mL 500000 UNIT PO (20:30)
[2019-05-30] MEDS: lidocaine 5% Patch 1 PATCH TOPICAL (20:30)
[2019-05-30] MEDS: risperiDONE 1 mg Tablet 2 MG PO (20:30)
[2019-05-31] VITALS (81 sets, daily range): BP systolic 94–109; BP diastolic 65–74; PULSE 93–118; RESP 12–33; TEMP 36.4–36.8; O2SAT 96–100
[2019-05-31] MEDS: ipratropium-albuterol 3 mL Neb INHALATION ×4 (02:37→20:15)
[2019-05-31] MEDS: piperacillin-tazobactam 3.375 GM in sodium chloride 0.9% (plus) 50 ML IV ×2 (03:40→12:59)
[2019-05-31 04:48] LABS: Eosinophils # 0.1 10^3/uL (0.0-0.8); Eosinophils % 2.5 %; Hematocrit 43.7 % (37.0-47.0); Hemoglobin 13.5 g/dL (11.5-15.3); Lymphocytes # 1.2 10^3/uL (0.8-4.8); Lymphocytes % 25.4 %; Mean Corpuscular HGB Conc 30.9 g/dL (30.0-36.0); Mean Corpuscular Volume 84.2 fL (81-99); Mean Platelet Volume 13.6 fL (7.4-10.4); Monocytes # 0.4 10^3/uL (0.2-0.9); Monocytes % 7.4 %; Neutrophils # 3.1 10^3/uL (1.8-7.7); Neutrophils % 64.3 %; Nucleated Red Blood Cells % 0 %; Platelet Count 115 10^3/cmm (130-400); Red Blood Count 5.19 10^6/uL (4.1-5.3); Red Cell Distribution Width 14.7 % (12.1-15.1); White Blood Count 4.8 10^3/uL (4.0-10.0)
[2019-05-31 05:16] LABS: Carbon Dioxide 27 mmol/L (22-29); Chloride 100 mmol/L (98-107); Glomerular Filtration Rate 254.7 mL/min (90-130); Glucose 126 mg/dL (65-115); Sodium 139 mmol/L (136-145)
[2019-05-31 05:17] LABS: Blood Urea Nitrogen 1 mg/dL (6-20); Osmolality Calculated 285 mOsm/kg (285-295)
[2019-05-31 05:33] LABS: Slide Review Slide Review Perform
[2019-05-31] MEDS: risperiDONE 1 mg Tablet PO (06:20)
[2019-05-31] MEDS: citalopram 20 mg Tablet 40 MG PO (08:56)
[2019-05-31] MEDS: apixaban 5 mg Tablet PO ×2 (08:56→17:19)
[2019-05-31] MEDS: ALPRAZolam 0.5 mg Tablet PO ×2 (08:56→17:19)
[2019-05-31] MEDS: famotidine 20 mg/2 mL INJ IVP ×2 (08:56→20:51)
--- NOTE | 2019-05-31 09:21 | PC.SOCIAL ---
IMM Update Pg 2 of IMM updated. Another copy provided and reviewed with Rosita.
--- NOTE | 2019-05-31 09:56 | PC.NUTR ---
NUTR TF RECOMMENDATIONS: Jevity 1.2 with goal rate of 40 ml/hr providing 1152 kcal (100%), 53 g PRO (165%), and 755 ml fluid (67%)(%NEEDS). Suggest starting continuouos feed at 20 ml/hr and increase by 10 ml Q6H as tolerated until goal rate is met. Suggest 60 ml H2O flush Q4H to meet fluid needs or per physician. BOLUS: Total of 4 cans daily with 1/4 cup H2O flush Q4H, or 1/2 cup after each feeding. 2-3 feedings per day.
[2019-05-31] MEDS: dextrose 5% 1,000 ML 75 ML IV (13:00)
--- NOTE | 2019-05-31 17:02 | P.PN_ITS ---
Subjective Subjective: Interval history: She is awake and alert, nonverbal. Appears comfortable. Guardian is at bedside. Vitals/I&O/Wt Last Vital Signs Temp 97.9 F 05/31/19 15:20 Pulse 117 H 05/31/19 15:20 Resp 19 H 05/31/19 15:20 BP 103/67 05/31/19 15:20 Pulse Ox 99 05/31/19 15:20 05/31/19 05/31/19 05/31/19 06:59 14:59 22:59 Intake Total 110 / 2242.25 1050 / 1050 Balance 110 / 2242.25 1050 / 1050 Weight last 48 hrs Weight 40.143 kg Weight 39.871 kg Physical Exam 2 Const: COMMON NORMALS: negative for oriented x3 OTHER: Quadriplegia. Alert. Comfortable. HENMT: COMMON NORMALS: oropharynx normal Neck/C-Spine: COMMON NORMALS: no JVD Resp: COMMON NORMALS: normal respiratory effort AUSCULTATION: no rhonchi Cardio: COMMON NORMALS: no JVD, regular rhythm, S1 normal heart sound, S2 normal heart sound and no murmurs RHYTHM: regular rhythm HEART SOUNDS: S1 normal and S2 normal GI: COMMON NORMALS: normal to inspection, nondistended, normoactive bowel sounds, soft to palpation and non-tender PALPATION: Yes soft OTHER: PEG tube in place, clean. Extremity: COMMON NORMALS: no joint enlargement and no pedal edema Neuro: COMMON NORMALS: negative for oriented x3 and negative for moves all extremities Skin: COMMON NORMALS: no rashes or lesions noted GENERAL SKIN EXAM: no rashes or lesions noted Data : 05/31/19 03:35 05/31/19 03:35 A&P Assessment and plan (1) Recurrent aspiration events: PEG tube placed. Start tube feeds. Resumed her medications. If advancing well, switch to bolus feeding, and may return home. Family have declined home health. She has good support. Otherwise nothing by mouth. Aspiration precautions. Pulmonary toilet. Status: Acute (2) Acute dehydration: Dehydration has been improving, and her guardian reports that she had perked up with IV hydration. Status: Acute Code(s): E86.0 - Dehydration (3) Hypernatremia: Slow improvement. D5W. Monitor sodium. Status: Acute Code(s): E87.0 - Hyperosmolality and hypernatremia (4) Hypokalemia: Requested replacement. Status: Acute Code(s): E87.6 - Hypokalemia (5) Aspiration pneumonia due to saliva: Bronchitis significantly improving. Rhonchi have cleared up. We will switch her to Augmentin by PEG tube. Status: Acute Code(s): J69.0 - Pneumonitis due to inhalation of food and vomit (6) DVT (deep venous thrombosis): Duplex ultrasound negative for DVT. Resume Eliquis when okay by surgery. Status: Acute Code(s): I82.409 - Acute embolism and thrombosis of unspecified deep veins of unspecified lower extremity Additional A&P Information Bacteremia: Recent bacteremia from actinobacter. Had a course of treatment with cefdinir. Repeat blood cultures negative. Acinetobacter in 1 bottle purulence hospitalization. Not clear whether in fact infection, or skin contamination. Recurrent aspiration. CT chest abdomen pelvis with right hepatic lobe hemangioma, cholesterol cholelithiasis, no sign of acute infection. Discussed results with guardian. There is no tenderness no pain on abdominal examination including right upper quadrant. PO chronic medications like citalopram cyclobenzaprine, Xanax on hold. Attestations Medical Necessity Statement*: Continue admission for assessment of chronic aspiration, initiation of PEG feeding, preparation for discharge. Coding Level of Care Code Acute Equal Opportunity Specialist for Chg Fwd Diagnoses Recurrent aspiration events Acute dehydration E86.0 Hypernatremia E87.0 Hypokalemia E87.6 Aspiration pneumonia due to saliva J69.0 DVT (deep venous thrombosis) I82.409
[2019-05-31] MEDS: amoxicillin-clav 875-125 mg Tablet 1 TAB PEG-TUBE (17:19)
[2019-05-31] MEDS: nystatin 100,000 unit/mL UDC 5 mL 500000 UNIT PO ×2 (17:23→20:51)
--- NOTE | 2019-05-31 18:33 | PC.NURSE ---
Dr Cunha notified of residual amount of 70ml instructions given to continue feedings at 20 ml per hour and recheck residual in 4 hours if 70ml or less turn feedings up by 10ml per hour
[2019-05-31] MEDS: lidocaine 5% Patch 1 PATCH TOPICAL (20:51)
[2019-05-31] MEDS: risperiDONE 1 mg Tablet 2 MG PO (20:51)
--- NOTE | 2019-05-31 21:13 | PC.NURSE ---
TUBE FEEDING INCREASED TO 30ML/HR PER DR ORDER.
[2019-06-01] VITALS (75 sets, daily range): BP systolic 93–112; BP diastolic 54–85; PULSE 110–134; RESP 10–32; TEMP 36.2–36.9; O2SAT 96–100
[2019-06-01] MEDS: dextrose 5% 1,000 ML 75 ML IV (01:35)
[2019-06-01] MEDS: ipratropium-albuterol 3 mL Neb INHALATION ×4 (02:34→20:45)
--- NOTE | 2019-06-01 04:12 | PC.NURSE ---
WAS NOTIFIED OF RESIDUAL AMOUNT OF 120ML. DR WANTS TO MAINTAIN THE CURRENT RATE OF 30ML/HR. WILL CONTINUE TO MONITOR.
[2019-06-01 05:10] LABS: Anion Gap 18.1 (5-19); Blood Urea Nitrogen 2 mg/dL (6-20); Calcium 8.6 mg/dL (8.5-10.5); Carbon Dioxide 26 mmol/L (22-29); Chloride 98 mmol/L (98-107); Glomerular Filtration Rate 182.7 mL/min (90-130); Glucose 97 mg/dL (65-115); Osmolality Calculated 283 mOsm/kg (285-295); Potassium 3.1 mmol/L (3.5-5.1); Sodium 139 mmol/L (136-145)
[2019-06-01 05:33] LABS: Basophils % 0.2 %; Eosinophils # 0.2 10^3/uL (0.0-0.8); Eosinophils % 2.7 %; Hematocrit 32.1 % (37.0-47.0); Hemoglobin 10.1 g/dL (11.5-15.3); Lymphocytes # 1.6 10^3/uL (0.8-4.8); Lymphocytes % 26.8 %; Mean Corpuscular HGB Conc 31.5 g/dL (30.0-36.0); Mean Corpuscular Hemoglobin 26.7 pg (28.0-34.0); Mean Corpuscular Volume 84.9 fL (81-99); Mean Platelet Volume 12.9 fL (7.4-10.4); Monocytes # 0.5 10^3/uL (0.2-0.9); Monocytes % 8.9 %; Neutrophils # 3.7 10^3/uL (1.8-7.7); Neutrophils % 61.1 %; Nucleated Red Blood Cells % 0 %; Platelet Count 122 10^3/cmm (130-400); Red Blood Count 3.78 10^6/uL (4.1-5.3); Red Cell Distribution Width 14.9 % (12.1-15.1)
[2019-06-01] MEDS: risperiDONE 1 mg Tablet PO (05:54)
[2019-06-01] MEDS: nystatin 100,000 unit/mL UDC 5 mL 500000 UNIT PO ×3 (09:38→18:25)
[2019-06-01] MEDS: famotidine 20 mg/2 mL INJ IVP ×2 (09:38→20:50)
[2019-06-01] MEDS: apixaban 5 mg Tablet PO ×2 (09:38→18:26)
[2019-06-01] MEDS: amoxicillin-clav 875-125 mg Tablet 1 TAB PEG-TUBE ×2 (09:38→18:26)
[2019-06-01] MEDS: citalopram 20 mg Tablet 40 MG PO (09:38)
[2019-06-01] MEDS: lidocaine 1% INJ 20 mL 5 ML IV (09:39)
[2019-06-01 09:41] LABS: Magnesium 2.5 mg/dL (1.7-2.3)
[2019-06-01] MEDS: ALPRAZolam 0.5 mg Tablet PO ×2 (09:41→18:26)
--- NOTE | 2019-06-01 10:58 | PC.CHAP ---
Pastoral Care Encounter/Spiritual Assessment Type of Contact [] Declined technology applications teacher visit [] Patient/Family/Request visit [] Outpatient visit [] Follow-up visit [] Physician referral [] Code/Alert x Routine visit [] Staff referral [] Actively dying [] Patient sleeping [] Family support [] [] Out of room [] Palliative care [] [] Receiving care in room [] Pre-surgical visit [] Trauma [] Long length of stay [] ICU visit [] Other: Relational/Emotional Strength [x] Patient feels connected with others/family/visitors/staff [] Distress [] Loneliness/isolation [] Abandonment Spirituality of Patient [] Person of [place] [] Attends Taoist of their [place] [] Believes in Prayer [] Reads Bible or Buddhist materials [] There are Spiritual issues to be addressed Health Associate Interventions [x] Prayer [] Active listening [] Non-anxious presence [] Spiritual/emotional support [] Crisis/trauma care [] Spiritual counseling [] Bereavement support [] Provided bereavement packet [] Provided Bible/devotional materials [] Provided toy/stuffed animal, coloring book to patient or family member [] Provided Communion [] Anointing/Petal [] Salvation [] Completed spiritual assessment [] Other: Impact on Illness or Injury [] Angry [] Fearful [] Anxious [] Often cries [] Exhaustion [] Unable to work [] Unable to attend quaker [] Unable to walk/stand [] Unable to read [] Unable to drive [] Unable to eat/drink [] Unable to sleep [] Unable to be with family [] Patient intubated [x] Other: Summary Patient was in attendance by her cousin. Prayer provided Time spent with patient 5 minutes
--- NOTE | 2019-06-01 15:11 | PC.NURSE ---
PATIENT APPEARED IN SLIGHT DISCOMFORT AT AFTER 150ML (OF THE 240ML ORDERED) INSTILLED ; FLUSHED WITH 30ML (OF THE 60ML ORDERED) WATER
--- NOTE | 2019-06-01 18:49 | PC.NURSE ---
PATIENT TOLERATED 75ML TOTAL WATER (INCLUDED MEDS) AND 120ML JEVITY ; PATIENT STARTED TO SHOW DISCOMFORT AT END OF WATER FLUSH
--- NOTE | 2019-06-01 19:32 | PM.DCS ---
Discharge Providers Date of Admission: 05/26/19 17:00 Date of Discharge: June 01, 2019 Attending Provider at Admission: Will Parson MD Attending Provider at Discharge: Ash Minor Primary Care Provider: Vicente Rincon MD Diagnoses at Discharge Discharge Diagnosis (1) Recurrent aspiration events: Status: Acute (2) Acute dehydration: Status: Acute (3) Hypernatremia: Status: Acute (4) Hypokalemia: Status: Acute (5) Aspiration pneumonia due to saliva: Status: Acute (6) DVT (deep venous thrombosis): Status: Acute Reason for Visit Reason for Visit: Reason For Visit: Doesn't feel well Hospital Course Hospital Course: 33-year-old lady with 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 With dehydration, hyponatremia and hypokalemia on presentation. With suspected aspiration pneumonia, but not noted on imaging, and likely bronchitis related to aspiration for which was started on Zosyn. Continued on Eliquis due to history of DVT. CT chest unremarkable, CT abdomen pelvis with cholesterol cholelithiasis, right hepatic lobe cavernous hemangioma. She was not a candidate for modified barium swallow evaluation, FEES was attempted, however, she could not tolerate, but on bedside evaluation by speech was noted to have very poor swallowing and airway protection. Goals of care were discussed with patient's guardian including transition to comfort feeds and measures versus other means of enteral nutrition, and after consideration guardians had elected for placement of PEG tube which he underwent uneventfully on 05/28. Recommendations for tube feeds were given by dietitian with family electing for bolus feeds. Target bolus feeds are total of 4 cans daily with 1/4 cup H2O flush Q4H, or 1/2 cup after each feeding. 2-3 feedings per day. She has not been able to tolerate a candidate as time currently, however. This is expected to to improve with time. Would work-up toward the target slowly. Starting with half a can every 3 hours, flushing 75 mL of water afterward. Quarter cup water flush every 4 hours as tolerating. Guardian has been instructed on care. Please follow-up on progress and adjust as appropriate. Physical Exam Const: COMMON NORMALS: negative for oriented x3 OTHER: Quadriplegia. Alert. Comfortable. HENMT: COMMON NORMALS: oropharynx normal Neck/C-Spine: COMMON NORMALS: no JVD Resp: COMMON NORMALS: normal respiratory effort AUSCULTATION: no rhonchi Cardio: COMMON NORMALS: no JVD, regular rhythm, S1 normal heart sound, S2 normal heart sound and no murmurs RHYTHM: regular rhythm HEART SOUNDS: S1 normal and S2 normal GI: COMMON NORMALS: normal to inspection, nondistended, normoactive bowel sounds, soft to palpation and non-tender PALPATION: Yes soft OTHER: PEG tube in place, clean. Extremity: COMMON NORMALS: no joint enlargement and no pedal edema Neuro: COMMON NORMALS: negative for oriented x3 and negative for moves all extremities Skin: COMMON NORMALS: no rashes or lesions noted GENERAL SKIN EXAM: no rashes or lesions noted Discharge Data Data Completed and Pending: Completed Studies During Hospitalization Category Date Time Status CT chest abd pel wo con Urgent Cat Scan 05/26/19 17:19 Completed CXRP [XR chest 1V portable [id number]] R outine Exams 05/28/19 14:00 Completed XR chest 1V loretta ble [id number] Urgent Exams 05/26/19 15:32 [place] [id number] Urgent Ultrasound 05/26/19 17:19 Completed Pending at discharge Category Date Time Status Basic Metabolic P brian AM LABS Lab 06/02/19 04:00 Ordered Complete Blood Co unt w/Auto AM LABS Lab 06/02/19 04:00 Ordered Labs from last 24 hours 06/01/19 06/01/19 06/01/19 03:45 03:45 03:45 WBC 6.0 RBC 3.78 L Hgb 10.1 L Hct 32.1 L MCV 84.9 MCH 26.7 L MCHC 31.5 RDW 14.9 Plt Count 122 L MPV 12.9 H Neut % (Auto) 61.1 Lymph % (Auto) 26.8 Barton % (Auto) 8.9 Eos % (Auto) 2.7 Baso % (Auto) 0.2 Neut # (Auto) 3.7 Lymph # (Auto) 1.6 Barton # (Auto) 0.5 Eos # (Auto) 0.2 Baso # (Auto) 0.0 Nucleated RBC % (a uto) 0 Nucleated RBCs # 0.0 Sodium 139 Potassium 3.1 L Chloride 98 Carbon Dioxide 26 Anion Gap 18.1 BUN 2 L Creatinine 0.4 L GFR Calculation 182.7 H Glucose 97 Calculated Osmolal ity 283 L Calcium 8.6 Magnesium 2.5 H Vitals: Last Vital Signs Temp 98.4 F 06/01/19 15:13 Pulse 116 H 06/01/19 15:13 Resp 24 H 06/01/19 15:13 BP 102/54 06/01/19 15:13 Pulse Ox 99 06/01/19 15:13 Discharge Plan Discharge Patient Disposition: Home, Self-Care Condition: Stable Prescriptions: New amoxicillin-pot clavulanate 875-125 mg Tablet 1 tab peg-tube BID 3 Days Qty: 6 RF: 0 Jevity 1.2 Mario 0.06 gram-1.2 kcal/mL liquid See Rx Instructions .ROUTE .COMPLEX Qty: 5688 RF: 0 Continued cyclobenzaprine 10 mg Tablet 10 mg PO TID PRN (Reason: unknown) RF: 0 citalopram 40 mg Tablet 40 mg PO DAILY RF: 0 alprazolam [Xanax] 0.5 mg Tablet 0.5 mg PO BID RF: 0 Eliquis 5 mg Tablet 5 mg PO BID RF: 0 nystatin 100,000 unit/mL Suspension 500,000 unit PO QID Qty: 1 RF: 0 Tylenol 325 mg Tablet 325 mg PO PRN RF: 0 Benadryl 25 mg Capsule 50 mg PO DAILY PRN (Reason: unknown) RF: 0 Tri-Sprintec (28) 0.18/0.215/0.25 mg-35 mcg (28) tablet 1 tab PO DAILY RF: 0 risperidone 0.5 mg tablet See Rx Instructions .ROUTE .COMPLEX RF: 0 Discontinued cefdinir 300 mg capsule 300 mg PO Q12H 10 Days Qty: 20 RF: 0 metronidazole [Flagyl] 500 mg tablet 500 mg PO Q8H 10 Days Qty: 30 RF: 0 Discharge Orders: Discharge Order (Routine); Ordered 06/01/19 Ordered By: Ash Minor Other Ambulatory Orders: Blood Culture (Routine) Timeframe: 2 Weeks Facility: [facility] - Location: Lab - Main Lab Ordered By: Ash Minor Referrals: Tomasz Finney MD [Physician] - 1 week Vicente Rincon MD [Primary Care Provider] - 4-7 days Discharge Diet: Start new tube feeds as directed Discharge Activity: Resume usual activity Activity Restrictions/Additional Instructions: Nothing by mouth. Strict aspiration precautions. Target bolus feeds are total of 4 cans daily with 1/4 cup H2O flush Q4H, or 1/2 cup after each feeding. 2-3 feedings per day. Would work-up for this slowly. Currently tolerating only small amounts which should improve with time. Currently would start with half a can every 3 hours, flushing 75 mL of water afterward. Quarter cup water flush every 4 hours as tolerating. Reposition frequently. Discharge Attestations Time Spent in Discharge Care*: greater than 30 min Quality Metrics Clinical Quality Measures During this hospital stay, did patient experience: None Coding Level of Care Code Acute Special Education Curriculum Specialist for Chg Fwd Diagnoses Recurrent aspiration events Acute dehydration E86.0 Hypernatremia E87.0 Hypokalemia E87.6 Aspiration pneumonia due to saliva J69.0 DVT (deep venous thrombosis) I82.409
[2019-06-01] MEDS: morphine 4 mg/mL SDV 1 mL 2 MG IVP (20:23)
[2019-06-01] MEDS: lidocaine 5% Patch 1 PATCH TOPICAL (20:50)
--- NOTE | 2019-06-01 21:27 | PC.NURSE ---
patients iv removed intact, covered with 2x2 and coban, vital signs stable, patient changed and cleaned, dressed and family/caregiver educated on new medication, appointments, how to care for patients new jpeg and feedings. Transport called at [phone] to be escorted out in her wheelchair with family to go home in personal vehicle.
== END 2019-06-01 21:15 | disposition home or self-care (01) | DRG 178 ==
LOC: ER 17:04 → CSU 17:24
PROVIDERS: Surgery; Admitting Provider Student in an Organized Health Care Education/Training Program; Emergency Provider Emergency Medicine; Family Provider Family Medicine; PCP Family Medicine; Visit Provider Internal Medicine
PROC: 0DH63UZ Insertion of Feeding Device into Stomach, Percutaneous Approach (ICD-10-PCS; CPT 43246; principal; 2019-05-29 10:25)
DX: J69.0 Pneumonitis due to inhalation of food and vomit (principal); I82.409 Acute embolism and thrombosis of unspecified deep veins of unspecified lower extremity; E87.0 Hyperosmolality and hypernatremia; E46 Unspecified protein-calorie malnutrition; E86.0 Dehydration; E87.6 Hypokalemia; Z66 Do not resuscitate; R13.10 Dysphagia, unspecified; Z68.20 Body mass index [BMI] 20.0-20.9, adult; Z79.82 Long term (current) use of aspirin; G80.9 Cerebral palsy, unspecified
CPT/HCPCS: 12345; 36415; 36416; 43246; 71045; 71250; 74176; 80048; 80053; 80306; 81001; 82436; 82962; 83540; 83550; 83605; 83690; 83735; 84133; 84145; 84295; 84300; 84443; 85025; 87040; 87086; 87493; 87641; 87804; 92523; 92610; 93005; 93010; 93970; 94640; 94664; 96375; 99283; J2001; J2060; J2270; J2405; J2543; J2704; J3480; J3490; J7030; J7040; J7799

== ENCOUNTER 2019-06-06 16:07 | Outpatient (CLI) | payer MEDICARE, MEDICAID, SELFPAY ==
[2019-06-06 16:53] LABS: Basophils % 0.1 %; Eosinophils # 0.3 10^3/uL (0.0-0.8); Hematocrit 35.3 % (37.0-47.0); Hemoglobin 10.5 g/dL (11.5-15.3); Lymphocytes # 2.9 10^3/uL (0.8-4.8); Lymphocytes % 33.4 %; Mean Corpuscular HGB Conc 29.7 g/dL (30.0-36.0); Mean Corpuscular Hemoglobin 25.5 pg (28.0-34.0); Mean Corpuscular Volume 85.7 fL (81-99); Mean Platelet Volume 11.1 fL (7.4-10.4); Monocytes # 0.8 10^3/uL (0.2-0.9); Monocytes % 8.7 %; Neutrophils # 4.7 10^3/uL (1.8-7.7); Neutrophils % 54.5 %; Nucleated Red Blood Cells % 0 %; Platelet Count 314 10^3/cmm (130-400); Red Blood Count 4.12 10^6/uL (4.1-5.3); White Blood Count 8.7 10^3/uL (4.0-10.0)
[2019-06-06 17:03] LABS: Anion Gap 16.2 (5-19); Blood Urea Nitrogen 9 mg/dL (6-20); Calcium 9.7 mg/dL (8.5-10.5); Carbon Dioxide 31 mmol/L (22-29); Chloride 103 mmol/L (98-107); Glomerular Filtration Rate 182.7 mL/min (90-130); Glucose 94 mg/dL (65-115); Osmolality Calculated 300 mOsm/kg (285-295); Potassium 3.2 mmol/L (3.5-5.1); Sodium 147 mmol/L (136-145)
== END 2019-06-06 16:08 | disposition home or self-care (01) ==
PROVIDERS: Family Provider Family Medicine; PCP Family Medicine; Visit Provider Family Medicine
DX: G80.9 Cerebral palsy, unspecified (principal)
CPT/HCPCS: 80048; 85025

== ENCOUNTER 2019-07-28 14:15 | Emergency (ER) | payer MEDICARE, MEDICAID, SELFPAY ==
[2019-07-28 14:39] VITALS: BP 123/79; PULSE 106; RESP 20; TEMP 37; O2SAT 99; BMI 21.6
--- NOTE | 2019-07-28 14:40 | XRR_ITS ---
PROCEDURE INFORMATION: Exam: XR Chest, 1 View Exam date and time: 07/28/2019 4:19 PM Age: 33 years old Clinical indication: Chest pain TECHNIQUE: Imaging protocol: XR of the chest Views: 1 view. COMPARISON: CR XR chest 1V portable [id number] 05/28/2019 1:52 PM FINDINGS: Lungs: Unremarkable. No consolidation. There is unchanged scarring in the left lung base. Pleural space: Unremarkable. No pleural effusion. No pneumothorax. Heart/Mediastinum: Unremarkable. No cardiomegaly. Bones/joints: No acute abnormality. Unchanged scoliosis. XR/XR chest 1V portable [id number] IMPRESSION: No acute findings.
--- NOTE | 2019-07-28 15:57 | W.ED.GENADLT ---
HPI - General Adult General: Chief complaint: General Medical Stated complaint: SOB; FEVER Time Seen by Provider: 07/28/19 15:45 History of Present Illness: HPI narrative: Patient is a 33-year-old female with a history of cerebral palsy. She is cared for at home by family members. She is brought in today because of concerns for possible aspiration. Several days ago she had one episode of vomiting. Since then she has seemed a little short of breath and has had increased coughing. She otherwise acts uncomfortable and at times cries for no apparent reason. Sometimes she throws her arms up in the air which is what she does when she is uncomfortable. She also has been having a lot of sweating and had a low-grade temperature below 100 degrees. She is incontinent and wears a brief. She does not have a Don[place]ue. She had a normal bowel movement yesterday. Her nurse from [email or web address] came by today and thought she heard some unusual breath sounds. She recommended that they come to the hospital. The patient has a G-tube due to her history of aspiration. She has not been having any difficulty with her tube feedings and does have that one episode of vomiting. Onset (ago): day(s) (3) Severity: moderate Associated symptoms: Reports dyspnea and vomiting Review of Systems General: Reports: Other (Limited review of systems per family member) Card: Reports: other (Heart rate was 145 at home) Resp: Reports: dyspnea and productive cough GI: Reports: vomiting : Reports: urinary incontinence Neuro: Reports: behavioral changes PFSH ED PFSH: Medical History Cerebral palsy DVT (deep venous thrombosis) Quadriplegia Spastic quadriplegia Surgical History History of contracture of joint Bilateral lower extremity surgery for releases at hips/knees/ankles History of oral surgery [place] teeth extraction Social History Smoking and tobacco status: never smoked Alcohol intake: never Lives independently: No Household members: family and caregiver Housing: House Female Reproductive History: Date of last menstrual period: 05/21/19 Physical Exam Const: COMMON NORMALS: no acute distress and alert EXAM LIMITATIONS: other limitations (Nonverbal, history of CP) GENERAL APPEARANCE: cooperative, comfortable and well kempt NUTRITIONAL APPEARANCE: thin HENMT: HEAD & SCALP: normal to inspection FACE & SINUS: normal facial exam Eye: GENERAL EYE: appearance normal, both eyes and all related structures Neck/C-Spine: COMMON NORMALS: supple, no meningeal signs and no JVD Chest: COMMONS NORMALS: normal inspection of the chest Resp: COMMON NORMALS: normal respiratory effort and No use of accessory muscles AUSCULTATION: diminished lung sounds (Throughout but right greater than left) Cardio: COMMON NORMALS: no JVD, regular rhythm and No murmurs present (Cardio) RATE: tachycardic RHYTHM: regular rhythm GI: COMMON NORMALS: Normal to inspection, nondistended, normoactive bowel sounds present, Soft to palpation and non-tender INSPECTION: Yes normal to inspection and Yes GI tube present (Clean and dry) AUSCULTATION: Yes normoactive bowel sounds PALPATION: Yes Soft to palpation Back/Pelvis: COMMON NORMALS: thoracic and lumbar spine normal to inspection Extremity: COMMON NORMALS: normal to inspection Neuro: COMMON NORMALS: moves all extremities SENSORIUM/ORIENTATION: Yes alert MENINGEAL SIGNS: Yes no meningeal signs MOTOR EXAM: Other motor observations present (History of cerebral palsy with limited control over the extremities) Psych: COMMON NORMALS: mental status grossly normal, cooperative and normal affect APPEARANCE: Yes well kempt Skin: COMMON NORMALS: no rashes or lesions noted and turgor normal GENERAL SKIN EXAM: no rashes or lesions noted and turgor normal Course ED course: Work-up in the ED normal other than some high sodium and chloride. We discussed using free water in addition to the tube feeds. They have been doing about 30 mL's of water after each feed and about 40 or 45 mL's at bedtime. Again I have him increase that to 45 mL's with each feeding. The chest x-ray was okay. Her white count was only slightly elevated. Urine was okay. Her heart rate came down into the 110s to 120s after fluids. Family feels comfortable taking her home and understands that they should return if they just feel like she is not doing well. Vital Signs: Vital signs: Vital Signs Temperature 98.6 F 07/28/19 14:39 Pulse Rate 93 07/28/19 19:57 Respiratory Rate 20 H 07/28/19 19:57 Blood Pressure 112/82 07/28/19 19:57 Pulse Oximetry 92 07/28/19 19:57 [facility] - General Adult Lab Data: Labs: Lab Results 07/28/19 07/28/19 07/28/19 Range/Units 12:30 16:07 16:37 WBC 14.4 H (4.0-10.0) 10^3/ uL RBC 4.78 (4.1-5.3) 10^6/u L Hgb 12.5 (11.5-15.3) g/dL Hct 42.6 (37.0-47.0) % MCV 89.1 (81-99) fL MCH 26.2 L (28.0-34.0) pg MCHC 29.3 L (30.0-36.0) g/dL RDW 17.2 H (12.1-15.1) % Plt Count 278 (130-400) 10^3/c mm MPV 12.5 H (7.4-10.4) fL Neut % (Auto) 74.0 % Lymph % (Auto) 18.6 % [place] % (Auto) 6.4 % Eos % (Auto) 0.3 % Baso % (Auto) 0.3 % Neut # (Auto) 10.7 H (1.8-7.7) 10^3/u L Lymph # (Auto) 2.7 (0.8-4.8) 10^3/u L [place] # (Auto) 0.9 (0.2-0.9) 10^3/u L Eos # (Auto) 0.1 (0.0-0.8) 10^3/u L Baso # (Auto) 0.0 (0.0-0.1) 10^3/u L Nucleated RBC % (a uto) 0 % Nucleated RBCs # 0.0 /100WBC Sodium (136-145) mmol/L Potassium (3.5-5.1) mmol/L Chloride (98-107) mmol/L Carbon Dioxide (22-29) mmol/L Anion Gap (5-19) BUN (6-20) mg/dL Creatinine (0.5-0.9) mg/dL GFR Calculation (90-130) mL/min Glucose (65-115) mg/dL Calculated Osmolal ity (285-295) mOsm/k g Lactate 1.1 (0.5-2.2) mmol/L Calcium (8.5-10.5) mg/dL Total Bilirubin (0.15-1.2) mg/dL AST (0-32) U/L ALT (0-33) U/L Alkaline Phosphata se (35-105) IU/L Total Protein (6.6-8.7) g/dL Albumin (3.5-5.2) g/dL Globulin (1.3-4.6) g/dL Urine Color Yellow (Yellow) Urine Appearance Clear (CLEAR) Urine pH 7 (5-7) Ur Specific Gravit y 1.015 (1.005-1.030) Urine Protein Neg (Negative) Urine Glucose (UA) Norm (Normal) Urine Ketones Negative (Negative) Urine Blood 2+ H (Negative) Urine Nitrate Negative (Negative) Urine Bilirubin Neg (NEGATIVE) Urine Urobilinogen Norm (Negative) mg/dL Ur Leukocyte Angélica ase Negative (Negative) Urine RBC 0-4 H (0-2) /hpf Urine WBC 0-4 H (0-5) /hpf Ur Squamous Epith Cells 0-4 H (0-5) Urine Bacteria Trace (NONE) 07/28/19 Range/Units 16:37 WBC (4.0-10.0) 10^3/ uL RBC (4.1-5.3) 10^6/u L Hgb (11.5-15.3) g/dL Hct (37.0-47.0) % MCV (81-99) fL MCH (28.0-34.0) pg MCHC (30.0-36.0) g/dL RDW (12.1-15.1) % Plt Count (130-400) 10^3/c mm MPV (7.4-10.4) fL Neut % (Auto) % Lymph % (Auto) % [place] % (Auto) % Eos % (Auto) % Baso % (Auto) % Neut # (Auto) (1.8-7.7) 10^3/u L Lymph # (Auto) (0.8-4.8) 10^3/u L [place] # (Auto) (0.2-0.9) 10^3/u L Eos # (Auto) (0.0-0.8) 10^3/u L Baso # (Auto) (0.0-0.1) 10^3/u L Nucleated RBC % (a uto) % Nucleated RBCs # /100WBC Sodium 148 H (136-145) mmol/L Potassium 3.6 (3.5-5.1) mmol/L Chloride 109 H (98-107) mmol/L Carbon Dioxide 24 (22-29) mmol/L Anion Gap 18.6 (5-19) BUN 17 (6-20) mg/dL Creatinine 0.4 L (0.5-0.9) mg/dL GFR Calculation 182.7 H (90-130) mL/min Glucose 112 (65-115) mg/dL Calculated Osmolal ity 303 H (285-295) mOsm/k g Lactate (0.5-2.2) mmol/L Calcium 9.9 (8.5-10.5) mg/dL Total Bilirubin 0.3 (0.15-1.2) mg/dL AST 18 (0-32) U/L ALT 43 H (0-33) U/L Alkaline Phosphata se 85 (35-105) IU/L Total Protein 8.7 (6.6-8.7) g/dL Albumin 4.1 (3.5-5.2) g/dL Globulin 4.6 (1.3-4.6) g/dL Urine Color (Yellow) Urine Appearance (CLEAR) Urine pH (5-7) Ur Specific Gravit y (1.005-1.030) Urine Protein (Negative) Urine Glucose (UA) (Normal) Urine Ketones (Negative) Urine Blood (Negative) Urine Nitrate (Negative) Urine Bilirubin (NEGATIVE) Urine Urobilinogen (Negative) mg/dL Ur Leukocyte Angélica ase (Negative) Urine RBC (0-2) /hpf Urine WBC (0-5) /hpf Ur Squamous Epith Cells (0-5) Urine Bacteria (NONE) Discharge Plan Discharge Patient Disposition: Home, Self-Care Clinical Impression: Acute dehydration Condition: Stable Prescriptions: No Action cyclobenzaprine 10 mg Tablet 10 mg PO TID PRN (Reason: unknown) RF: 0 citalopram 40 mg Tablet 40 mg PO DAILY RF: 0 alprazolam [Xanax] 0.5 mg Tablet 0.5 mg PO BID RF: 0 Eliquis 5 mg Tablet 5 mg PO BID RF: 0 nystatin 100,000 unit/mL Suspension 500,000 unit PO QID Qty: 1 RF: 0 Tylenol 325 mg Tablet 325 mg PO PRN RF: 0 Benadryl 25 mg Capsule 50 mg PO DAILY PRN (Reason: unknown) RF: 0 Tri-Sprintec (28) 0.18/0.215/0.25 mg-35 mcg (28) tablet 1 tab PO DAILY RF: 0 risperidone 0.5 mg tablet See Rx Instructions .ROUTE .COMPLEX RF: 0 Jevity 1.2 Mario 0.06 gram-1.2 kcal/mL liquid See Rx Instructions .ROUTE .COMPLEX Qty: 5688 RF: 0 Referrals: Vicente Rincon MD [Primary Care Provider] - Discharge Diet: Resume prior tube feeds Discharge Activity: Resume usual activity Patient Instructions: Dehydration (ED) Activity Restrictions/Additional Instructions: Add extra free water - maybe 45 ml after each feeding instead of 30 ml. Return if any new or worsening symptoms. Discharge Date/Time: 07/28/19 19:58 Coding Level of Care Code ED Rehab Tech for Chg Fwd Exam Comprehensive
[2019-07-28 15:58] VITALS: BP 101/81; PULSE 139; RESP 20; O2SAT 97
[2019-07-28 16:02] VITALS: BP 95/80; PULSE 150; RESP 20; O2SAT 97
[2019-07-28 16:48] LABS: Basophils % 0.3 %; Eosinophils # 0.1 10^3/uL (0.0-0.8); Eosinophils % 0.3 %; Hematocrit 42.6 % (37.0-47.0); Hemoglobin 12.5 g/dL (11.5-15.3); Lymphocytes # 2.7 10^3/uL (0.8-4.8); Lymphocytes % 18.6 %; Mean Corpuscular HGB Conc 29.3 g/dL (30.0-36.0); Mean Corpuscular Hemoglobin 26.2 pg (28.0-34.0); Mean Corpuscular Volume 89.1 fL (81-99); Mean Platelet Volume 12.5 fL (7.4-10.4); Monocytes # 0.9 10^3/uL (0.2-0.9); Monocytes % 6.4 %; Neutrophils # 10.7 10^3/uL (1.8-7.7); Nucleated Red Blood Cells % 0 %; Platelet Count 278 10^3/cmm (130-400); Red Blood Count 4.78 10^6/uL (4.1-5.3); Red Cell Distribution Width 17.2 % (12.1-15.1); White Blood Count 14.4 10^3/uL (4.0-10.0)
[2019-07-28 17:07] LABS: Alanine Aminotransferase 43 U/L (0-33); Albumin Level 4.1 g/dL (3.5-5.2); Alkaline Phosphatase 85 IU/L (35-105); Anion Gap 18.6 (5-19); Aspartate Amino Transferase 18 U/L (0-32); Blood Urea Nitrogen 17 mg/dL (6-20); Calcium 9.9 mg/dL (8.5-10.5); Carbon Dioxide 24 mmol/L (22-29); Chloride 109 mmol/L (98-107); Globulin 4.6 g/dL (1.3-4.6); Glomerular Filtration Rate 182.7 mL/min (90-130); Glucose 112 mg/dL (65-115); Osmolality Calculated 303 mOsm/kg (285-295); Potassium 3.6 mmol/L (3.5-5.1); Sodium 148 mmol/L (136-145); Total Bilirubin 0.3 mg/dL (0.15-1.2); Total Protein 8.7 g/dL (6.6-8.7)
[2019-07-28 17:22] LABS: Lactate (Lactic Acid level) 1.1 mmol/L (0.5-2.2)
[2019-07-28] MEDS: sodium chloride 0.9% 1,000 ML 999 ML IV (17:43)
[2019-07-28 17:49] VITALS: BP 100/73; PULSE 147; RESP 20; O2SAT 95
[2019-07-28 18:14] VITALS: BP 109/85; PULSE 134; RESP 20; O2SAT 95
[2019-07-28 18:22] LABS: Add Urine Microscopic? YES; Bilirubin Urine Neg (NEGATIVE); Blood Urine 2+ (Negative); Glucose Urine UA Norm (Normal); Ketones Urine Negative (Negative); Leukocyte Esterase Urine Negative (Negative); Nitrate Urine Negative (Negative); Protein Urine Neg (Negative); Specific Gravity, Urine 1.015 (1.005-1.030); Urine Appearance Clear (CLEAR); Urine Color Yellow (Yellow); Urobilinogen Urine Norm (Negative); pH Urine 7 (5-7)
[2019-07-28 18:23] LABS: Add Urine Culture? No; Bacteria Urine TRACE; RBC Urine 0-4 /hpf (0-2); Squamous Epithelial Cell Urine 0-4 (0-5); WBC Urine 0-4 /hpf (0-5)
[2019-07-28 19:57] VITALS: BP 112/82; PULSE 93; RESP 20; O2SAT 92
== END 2019-07-28 19:58 | disposition home or self-care (01) ==
PROVIDERS: Physician Assistant; Emergency Provider Emergency Medicine; Family Provider Family Medicine; PCP Family Medicine
DX: E86.0 Dehydration (principal); Z79.01 Long term (current) use of anticoagulants; G80.0 Spastic quadriplegic cerebral palsy
CPT/HCPCS: 12345; 36415; 71045; 80053; 81001; 83605; 85025; 87040; 96360; 99283; J7030

== ENCOUNTER → 2022-03-27 13:59 | Outpatient (BNVA) | payer MEDICARE, MEDICAID, SELFPAY | PROVIDERS: Family Provider Family Medicine; PCP Family Medicine; Visit Provider Surgery | DX: T85.598A Other mechanical complication of other gastrointestinal prosthetic devices, implants and grafts, initial encounter (principal); X58.XXXA Exposure to other specified factors, initial encounter | CPT/HCPCS: 43762; 99203; 99213 ==

== ENCOUNTER 2023-01-01 15:49 | Emergency (ER) | payer MEDICARE, MEDICAID, SELFPAY ==
[2023-01-01 15:57] VITALS: BP 132/88; PULSE 123; RESP 18; TEMP 36.9; O2SAT 100; BMI 28.1
[2023-01-01 15:59] VITALS: BP 115/67; O2SAT 100
--- NOTE | 2023-01-01 16:15 | ED_ITS ---
HPI - General Adult General: Chief complaint: General Medical Stated complaint: pulled out feeding tube Time Seen by Provider: 01/01/23 15:57 Source: family (Mother) Mode of arrival: ambulatory Limitations: other (Unable to provide history.) History of Present Illness: This 37-year-old female with a history of cerebral palsy was brought in by family with a dislodged feeding tube. Mom states that they were sitting down watching television and she noticed that patient had pulled her shirt up. When she tried to pull the shirts down, she discovered that the feeding tube was in patient's hand. It appears that patient had accidentally pulled the tube out. Patient is nonverbal and is unable to provide any useful history. She has a right periorbital bruise which mom said happened few days ago when she was taking patient back to the room after a shower. Mom reports that she slipped, causing patient to fall and bump her face. Eyeball is intact and patient does not seem to be in distress. Review of Systems General: Reports: ROS unobtainable due to medical condition PFSH ED PFSH: Medical History (Updated 01/01/23 @ 18:58 by Kemal Myers MD) Cerebral palsy DVT (deep venous thrombosis) Quadriplegia Spastic quadriplegia Surgical History History of contracture of joint Bilateral lower extremity surgery for releases at hips/knees/ankles History of oral surgery [place] teeth extraction Social History Smoking and tobacco/nicotine status: never used tobacco/nicotine Alcohol intake: never Substance/Drug Use: never Lives independently: No Household members: family and caregiver Housing: House Physical Exam Const: COMMON NORMALS: no acute distress and alert HENMT: COMMON NORMALS: normocephalic HEAD & SCALP: normocephalic Eye: COMMON NORMALS: EOMs intact bilaterally Neck/C-Spine: COMMON NORMALS: full ROM and supple Resp: COMMON NORMALS: normal respiratory effort, No retractions, No use of accessory muscles and clear to auscultation bilaterally AUSCULTATION: clear to auscultation bilaterally Cardio: COMMON NORMALS: regular rate, regular rhythm and No murmurs present (Cardio) RATE: regular rate RHYTHM: regular rhythm GI: COMMON NORMALS: Normal to inspection, nondistended, normoactive bowel sounds present and non-tender OTHER: Ostium of feeding tube in the left upper quadrant. Abdomen is flat with no signs of tenderness. Normal bowel sounds present. Extremity: GENERAL: Yes normal exam except as noted Neuro: COMMON NORMALS: no focal motor deficits SENSORIUM/ORIENTATION: Yes alert Course Consultations: Consultation #1: Case discussed with Dr. Breen, surgeon on-call. He will evaluate patient in the ER. Time: 17:04 Vital Signs: Vital signs: Vital Signs Temperature 98.4 F 01/01/23 15:57 Pulse Rate 112 H 01/01/23 19:07 Respiratory Rate 18 01/01/23 15:57 Blood Pressure 128/93 01/01/23 19:07 Pulse Oximetry 100 01/01/23 19:07 Oxygen Delivery Me thod Room Air 01/01/23 15:57 MDM - General Adult Medical Decision Making Medical decision making: Patient was brought to the ER for evaluation after she accidentally pulled out her gastrostomy tube. We tried to replace it in the ER without success. However, the surgeon on-call, Dr. Breen was able to put in a smaller tube. Patient had a 20-gauge [place] tube initially. It was changed to a an 18-gauge [place] tube. X-ray confirmed good placement. He was discharged home to follow- up with his primary care physician. Reasons to return were discussed. Lab Data Radiology Impressions Abdomen X-Ray 01/01/23 17:34 IMPRESSION: Gastrostomy catheter tip is within the stomach. All radiology interpretation(s) finalized by discharge Discharge Plan Discharge Patient Disposition: Home Clinical Impression: Dislodged gastrostomy tube Condition: Stable Prescriptions: No Action cyclobenzaprine 10 mg Tablet 10 mg PO TID PRN (Reason: unknown) Rx Instructions: pts family states she usually takes bid citalopram 40 mg Tablet 40 mg PO DAILY alprazolam [Xanax] 0.5 mg Tablet 0.5 mg PO BID Eliquis 5 mg Tablet 5 mg PO BID nystatin 100,000 unit/mL Suspension 500,000 unit PO QID Qty: 1 0RF Rx Instructions: pts family states they didnt get this medication from the pharmacy Tylenol 325 mg Tablet 325 mg PO PRN Benadryl 25 mg Capsule 50 mg PO DAILY PRN (Reason: unknown) Tri-Sprintec (28) 0.18/0.215/0.25 mg-35 mcg (28) tablet 1 tab PO DAILY risperidone 0.5 mg tablet See Rx Instructions .ROUTE .COMPLEX Rx Instructions: 1 tab po qam and 2 tabs at bedtime Jevity 1.2 Mario 0.06 gram-1.2 kcal/mL liquid See Rx Instructions .ROUTE .COMPLEX Qty: 5688 0RF Rx Instructions: Target bolus feeds are total of 4 cans daily with 1/4 cup H2O flush Q4H, or 1/2 cup after each feeding. 2-3 feedings per day. Would work-up for this slowly. Currently tolerating only small amounts which should improve with time. Currently would start with half a can every 3 hours, flushing 75 mL of water afterward. Quarter cup water flush every 4 hours as tolerating. Discharge Orders: Discharge ED (Routine); Ordered 01/01/23 Ordered By: Kemal Myers Referrals: Vicente Rincon MD [Primary Care Provider] - Discharge Diet: Usual diet Discharge Activity: Resume usual activity Patient Instructions: Opioid Safety, Pain Management Activity Restrictions/Additional Instructions: Start using your gastrostomy tube as usual. Follow-up with your primary care physician as needed. Return with any new or worsening symptoms. Coding Level of Care Code ED General Farm Hand for Chon Taylor
--- NOTE | 2023-01-01 17:34 | XRR_ITS ---
PROCEDURE INFORMATION: Exam: XR Abdomen Exam date and time: 01/01/2023 6:00 PM Age: 37 years old Clinical indication: Device placement; Gi device; Prior surgery; Surgery date: 6+ months; Surgery type: Unknown how long peg tube in place; Additional info: Confirm tube placement, inject contrast prior to xray TECHNIQUE: Imaging protocol: Radiologic exam of the abdomen. Views: Frontal supine view of the abdomen. 1 View. COMPARISON: [place] [id number] 05/26/2019 6:26 PM FINDINGS: Tubes, catheters and devices: There is a gastrostomy tube overlying left upper quadrant. The tip appears to be within the stomach. There is contrast material within the stomach without evidence of extravasation. Catheter balloon is not identified. Gastrointestinal tract: See Tubes, catheters and devices finding. Bones/joints: There is severe lumbar scoliosis concave to the left. XR/XR abdomen 1V* [id number] IMPRESSION: Gastrostomy catheter tip is within the stomach.
--- NOTE | 2023-01-01 17:44 | P.CONIM_ITS ---
Providers/Reason For Consult Consulting Physician/Specialty*: general surgery Reason for Consult*: dislodged PEG tube Primary Care Provider: Vicente Rincon MD History of Present Illness History of Present Illness Myrna Cano is a 37 year old female with cerebral palsy who presents after peg tube was noted to be dislodged today at 3:00 pm. ER physician attempted replacement but tube was unable to be advanced and therefore I was consulted. current tube was a 20 Fr Review of Systems Narrative: review of systems unable to be done due to patient condition. Medications/Allergies Home Medications Medication Instructions Recorded Confirmed Last Taken Type alprazolam 0.5 mg tablet (Xanax) 0.5 mg PO BID 05/13/19 03/27/22 05/25/19 History apixaban 5 mg tablet (Eliquis) 5 mg PO BID 05/13/19 03/27/22 05/25/19 History citalopram 40 mg tablet 40 mg PO DAILY 05/13/19 03/27/22 05/25/19 History cyclobenzaprine 10 mg tablet 10 mg PO TID PRN unknown 05/13/19 03/27/22 05/25/19 History nystatin 100,000 unit/mL oral 500,000 unit PO QID #1 unit 05/18/19 03/27/22 Unknown Rx suspension acetaminophen 325 mg tablet 325 mg PO PRN 05/26/19 03/27/22 Unknown History (Tylenol) diphenhydramine HCl 25 mg capsule 50 mg PO DAILY PRN unknown 05/26/19 03/27/22 05/25/19 History (Benadryl) norgestimate-ethinyl estradiol 1 tab PO DAILY 05/26/19 03/27/22 05/25/19 History 0.18 mg/0.215mg/0.25mg-35 mcg(28)tablet (Tri-Sprintec (28)) risperidone 0.5 mg tablet See Rx Instructions .Route .COMPLEX 05/26/19 03/27/22 05/25/19 History lactose-reduced food with fiber See Rx Instructions .Route 06/01/19 03/27/22 Unknown Rx 0.06 gram-1.2 kcal/mL oral liquid .COMPLEX #5,688 mL (Jevity 1.2 Mario) Allergies Allergy/AdvReac Type Severity Reaction Status Date / Time No Known Allergies Allergy Verified 01/01/23 15:59 PFSH Acute PFSH: Medical History (Updated 03/27/22 @ 14:44 by Hay Alex DO) Cerebral palsy DVT (deep venous thrombosis) Quadriplegia Spastic quadriplegia Surgical History History of contracture of joint Bilateral lower extremity surgery for releases at hips/knees/ankles History of oral surgery [place] teeth extraction Social History Smoking and tobacco/nicotine status: never used tobacco/nicotine Alcohol intake: never Substance/Drug Use: never Lives independently: No Household members: family and caregiver Housing: House Vitals/I&O/Wt Last Vital Signs Temp 98.4 F 01/01/23 15:57 Pulse 123 H 01/01/23 15:57 Resp 18 01/01/23 15:57 BP 115/67 01/01/23 15:59 Pulse Ox 100 01/01/23 15:59 O2 Del Method Room Air 01/01/23 15:57 Weight last 48 hrs Weight 100 lb Physical Exam Const: OTHER: awake and alert but unable to communicate GI: OTHER: abdomen is soft and non tender, left upper quadrant PEG tube wound noted, there is granulation tissue around the wound. A&P Assessment and plan (1) Feeding tube dysfunction: Plan after complete evaluation I proceeded to identify the tract using a q-tip. once trackt was identified I gently dilated the skin opening and inserted a 18Fr CLINT gastric tube. the ballon was inflated with 8cc of sterile water. immediate return of tube feedings was noted from the tube. A contrast study will be obtained to verify placement position before discharge. Coding Level of Care Code 65752 Diagnoses Feeding tube dysfunction T85.598A
[2023-01-01 19:07] VITALS: BP 128/93; PULSE 112; O2SAT 100
== END 2023-01-01 19:08 | disposition home or self-care (01) ==
PROVIDERS: Emergency Provider Family Medicine; PCP Family Medicine
DX: K94.29 Other complications of gastrostomy (principal); Z79.01 Long term (current) use of anticoagulants; G80.0 Spastic quadriplegic cerebral palsy
CPT/HCPCS: 74018; 99283